=== PATIENT | male | born 1960 | race American Indian/Alaskan Native ===

== ENCOUNTER 2019-07-31 11:34 | Inpatient (IN) | payer MEDICARE ==
--- NOTE | 2019-07-31 12:45 | XRay Report ---
CHEST 1 VIEW INDICATION / CLINICAL INFORMATION: Chest Pain. COMPARISON: None available. FINDINGS: SUPPORT DEVICES: Right PermCath projects over the superior vena cava in expected position. HEART / MEDIASTINUM: No significant abnormality. LUNGS / PLEURA: No significant pulmonary or pleural abnormality. No pneumothorax. ADDITIONAL FINDINGS: No significant additional findings. IMPRESSION: 1. No acute findings. Signer Name: Lissy Saxena MD Signed: 07/31/2019 12:40 PM Workstation Name: [id number]
[2019-07-31 13:06] LABS: Basophils % (Auto) 0.4 % (0.0-1.8); Eosinophils # (Auto) 0.2 K/mm3 (0.0-0.4); Eosinophils % (Auto) 3.2 % (0.0-4.3); Hematocrit 29.6 % (35.5-45.6); Hemoglobin 9.8 gm/dl (11.8-15.2); Lymphocytes # (Auto) 0.7 K/mm3 (1.2-5.4); Lymphocytes % (Auto) 12.1 % (13.4-35.0); Mean Corpuscular HGB Conc 33 % (32-34); Mean Corpuscular Volume 91 fl (84-94); Monocytes # (Auto) 0.4 K/mm3 (0.0-0.8); Monocytes % (Auto) 7.8 % (0.0-7.3); Platelet Count 153 K/mm3 (140-440); Red Blood Count 3.27 M/mm3 (3.65-5.03); Red Cell Distribution Width 16.5 % (13.2-15.2)
[2019-07-31 13:20] LABS: Albumin 4.1 g/dL (3.9-5); Calcium 9.8 mg/dL (8.4-10.2)
[2019-07-31 13:32] LABS: Chol/HDL Ratio 2.14 %
--- NOTE | 2019-07-31 14:27 | History and Physical Report ---
History of Present Illness Chief complaint: I just blacked out History of present illness: 58 YO Male with HTN, CVA, Nicotine Dependence, ESRD on HD(M,W,F), presents to ED for evaluation. Pt states that he was in his [facility] state of health today. Pt reports experienced of acute onset of abdominal cramping, which was followed by weakness of his left side, and slurred speech which was followed by syncope. Pt awoke, and notified EMS. Upon arrival the patient was found to be in distress and transported to [facility]. Pt seen and evaluated in ED and found to have symptoms consistent with CVA as well as ESRD. PT admitted to telemetry and initiated on CVA protocol. Neurology consulted in ED. Nephrology consulted in ED. Pt denies fever, chills, CP, Palpitations, NVD, Trauma, BRBPR, Productive cough, unintentional weight loss, night sweats, skin rash, or bone pain. Past History Past Medical History: ESRD, hypertension, stroke Past Surgical History: Other (dialysis catheter) Social history: , smoking Family history: hypertension Medications and Allergies Allergies Allergy/AdvReac Type Severity Reaction Status Date / Time No Known Allergies Allergy Unverified 07/31/19 11:50 Home Medications Medication Instructions Recorded Confirmed Last Taken Type Baclofen [Lioresal] 10 mg PO TID 07/31/19 07/31/19 Unknown History Carvedilol [Coreg] 6.25 mg PO BID 07/31/19 07/31/19 Unknown History Rosuvastatin Calcium 40 mg PO QDAY 07/31/19 07/31/19 Unknown History Sevelamer Carbonate [Renvela] 800 mg PO TIDWM 07/31/19 07/31/19 Unknown History Spironolactone [Aldactone] 25 mg PO QDAY 07/31/19 07/31/19 Unknown History Ticagrelor [Brilinta] 45 mg PO BID 07/31/19 07/31/19 Unknown History Vit B Comp C/Folic Acid/Vit D3 1 each PO QDAY 07/31/19 07/31/19 Unknown History [Dialyvite 800 Plus D Wafer] amLODIPine [Norvasc] 10 mg PO DAILY 07/31/19 07/31/19 Unknown History Review of Systems Constitutional: no weight loss, no fever, no chills Ears, nose, mouth and throat: no ear pain, no ear discharge, no tinnitis, no decreased hearing, no nose pain, no nasal congestion, no nasal discharge Cardiovascular: no chest pain Respiratory: no cough, no cough with sputum, no hemoptysis, no dyspnea on exertion Gastrointestinal: other (cramping), no abdominal pain, no nausea, no vomiting, no constipation, no change in bowel habits Genitourinary Male: no dysuria, no hematuria, no flank pain, no discharge, no urinary frequency, no nocturia, no erectile dysfunction Rectal: no pain, no incontinence, no bleeding Musculoskeletal: no neck stiffness, no neck pain, no low back pain, no shooting leg pain Integumentary: no rash, no redness, no wounds, no jaundice Neurological: weakness, syncope, lack of coordination, change in speech, no head injury, no seizures, no tremors, no migraines, no convulsions, no confusion, no memory loss Psychiatric: no anxiety, no memory loss, no sleep disturbances, no insomnia, no hypersomnia, no change in libido, no suicidal ideation, no disorientation Endocrine: no cold intolerance, no heat intolerance, no polyphagia, no polydipsia, no polyuria, no nocturia, no excessive sweating, no flushing Hematologic/Lymphatic: no easy bruising, no easy bleeding, no lymphadenopathy, no lymphedema Allergic/Immunologic: no urticaria, no allergic rhinitis, no wheezing, no persistent infections, no anaphylaxis, no angioedema Exam - Constitutional Vitals: Temp Pulse Resp BP Pulse Ox 98.4 F 92 H 22 121/84 97 07/31/19 13:03 07/31/19 13:03 07/31/19 13:03 07/31/19 13:03 07/31/19 13:03 General appearance: Present: mild distress - EENT Eyes: Present: PERRL ENT: hearing intact, clear oral mucosa - Neck Neck: Present: supple, normal ROM - Respiratory Respiratory effort: normal Respiratory: bilateral: CTA - Cardiovascular Heart Sounds: Present: S1 & S2. Absent: rub, click - Extremities Extremities: pulses symmetrical, No edema Peripheral Pulses: within normal limits - Abdominal General gastrointestinal: Present: soft, non-tender, non-distended, normal bowel sounds Male genitourinary: Present: normal - Integumentary Integumentary: Present: clear, warm, dry - Musculoskeletal Musculoskeletal: left sided weakness - Psychiatric Psychiatric: appropriate mood/affect, intact judgment & insight - Neurologic Neurologic: CNII-XII intact, moves all extremities, no gait normal Results - Labs CBC & Chem 7: 07/31/19 12:36 07/31/19 12:36 Labs: Abnormal lab results 07/31/19 07/31/19 Range/Units 12:36 12:36 RBC 3.27 L (3.65-5.03) M/mm3 Hgb 9.8 L (11.8-15.2) gm/dl Hct 29.6 L (35.5-45.6) % RDW 16.5 H (13.2-15.2) % Lymph % (Auto) 12.1 L (13.4-35.0) % [place] % (Auto) 7.8 H (0.0-7.3) % Lymph # 0.7 L (1.2-5.4) K/mm3 Seg Neutrophils % 76.5 H (40.0-70.0) % Potassium 3.3 L (3.6-5.0) mmol/L Chloride 95.1 L (98-107) mmol/L Creatinine 3.1 H (0.8-1.5) mg/dL Glucose 116 H (75-100) mg/dL Troponin T 0.050 H (0.00-0.029) ng/mL LDL Cholesterol Direct 42 L (50-130) mg/dL Assessment and Plan - Patient Problems (1) CVA (cerebral vascular accident) Current Visit: Yes Status: Acute Qualifiers: Laterality of affected vessel: unspecified Plan to address problem: Stroke Protocol: CT head, neuro checks, antiplatelet therapy, PT/OT/Speech Therapy, Antiplatelet therapy, lipid panel, neurology consulted, Further testing as per neurology team. (2) ESRD (end stage renal disease) Current Visit: Yes Status: Acute Plan to address problem: Nephrology consulted in ED, dialysis as per renal team. (3) HTN (hypertension) Current Visit: Yes Status: Acute Qualifiers: Hypertension type: essential hypertension Qualified Code(s): I10 - Essential (primary) hypertension Plan to address problem: monitor bp q shift, continue medical management. (4) Nicotine dependence Current Visit: Yes Status: Acute Qualifiers: Nicotine product type: cigarettes Substance use status: in withdrawal Q ualified Code(s): F17.213 - Nicotine dependence, cigarettes, with withdrawal Plan to address problem: Smoking cessation counseling, +15 minutes, supportive care. (5) DVT prophylaxis Current Visit: Yes Status: Acute Plan to address problem: SCD to BLE while in bed.
--- NOTE | 2019-07-31 14:30 | Emergency Department Report ---
ED General Adult HPI - General Chief complaint: Abdominal Pain Stated complaint: ABD PAIN Time Seen by Provider: 07/31/19 12:13 Source: patient, EMS Mode of arrival: Stretcher Limitations: No Limitations - History of Present Illness Initial comments: Mr. Santoro is a 58 yo male with hx of HTN, CVA, ESRD on HD who presents with syncope x 2 episodes. While awaiting podiatry appointment, he caught "a cramp" in his left side at the left upper abdomen. Daughter then witnessed two brief episodes whereas Mr. Santoro lost consciousness. The second episode lasted several seconds. Patient denies pain currently. He does not recall the episodes. He previously lived in [facility]. His PCP's office is in the area. 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 His previous primary hospital primary was [facility]. He now received dialysis at [address] [place] [id number] in [place]. Hemodialysis Schedule Sunday. Last dialysis session occurred on yesterday. Mr. Santoro recently moved to [place] to live with his daughter who will now be his small animal caretaker. -: Sudden, This afternoon Severity scale (0 -10): 0 Consistency: now resolved Improves with: none Worsens with: none Associated Symptoms: other (left upper quadrant abdominal pain) - Related Data Allergies Allergy/AdvReac Type Severity Reaction Status Date / Time No Known Allergies Allergy Unverified 07/31/19 11:50 ED Review of Systems ROS: Stated complaint: ABD PAIN Other details as noted in HPI Comment: All other systems reviewed and negative Constitutional: denies: fever, malaise Cardiovascular: denies: chest pain Gastrointestinal: abdominal pain ED Past Medical Hx - Past Medical History Previous Medical History?: Yes Hx Hypertension: Yes - Social History Smoking Status: Current Every Day Smoker ED Physical Exam - General Limitations: No Limitations General appearance: alert, in no apparent distress, other (mild dysarthria which is baseline for patient with history of previous stroke) - Head Head exam: Present: atraumatic, normocephalic - Eye Eye exam: Present: normal appearance - ENT ENT exam: Present: mucous membranes moist - Neck Neck exam: Present: normal inspection, full ROM - Respiratory Respiratory exam: Present: normal lung sounds bilaterally. Absent: respiratory distress, wheezes, rales, stridor - Cardiovascular Cardiovascular Exam: Present: regular rate, normal rhythm, normal heart sounds. Absent: systolic murmur, diastolic murmur, rubs, gallop - GI/Abdominal GI/Abdominal exam: Present: soft, normal bowel sounds. Absent: distended, tenderness, guarding, rebound - Rectal Rectal exam: Present: deferred - Extremities Exam Extremities exam: Present: normal inspection - Back Exam Back exam: Present: normal inspection - Neurological Exam Neurological exam: Present: alert, oriented X3 - Psychiatric Psychiatric exam: Present: normal affect, normal mood - Skin Skin exam: Present: warm, dry, intact, normal color. Absent: rash ED Course Vital Signs 07/31/19 07/31/19 07/31/19 11:48 13:00 13:03 Temperature 98.4 F Pulse Rate 92 H Respiratory 22 Rate Blood Pressure 129/82 121/84 [Left] O2 Sat by Pulse 96 97 Oximetry ED Medical Decision Making - Lab Data Result diagrams: 07/31/19 12:36 07/31/19 12:36 Laboratory Results - last 24 hr 07/31/19 07/31/19 12:36 12:36 WBC 5.8 RBC 3.27 L Hgb 9.8 L Hct 29.6 L MCV 91 MCH 30 MCHC 33 RDW 16.5 H Plt Count 153 Lymph % (Auto) 12.1 L [place] % (Auto) 7.8 H Eos % (Auto) 3.2 Baso % (Auto) 0.4 Lymph # 0.7 L [place] # 0.4 Eos # 0.2 Baso # 0.0 Seg Neutrophils % 76.5 H Seg Neutrophils # 4.4 Sodium 137 Potassium 3.3 L Chloride 95.1 L Carbon Dioxide 28 Anion Gap 17 BUN 20 Creatinine 3.1 H Estimated GFR 25 BUN/Creatinine Ratio 6 Glucose 116 H Calcium 9.8 Total Bilirubin 0.90 AST 18 ALT 16 Alkaline Phosphatase 118 Troponin T 0.050 H Total Protein 8.0 Albumin 4.1 Albumin/Globulin Ratio 1.1 Triglycerides 105 Cholesterol 90 LDL Cholesterol Direct 42 L HDL Cholesterol 42 Cholesterol/HDL Ratio 2.14 - EKG Data 07/31/19 14:30 EKG NSR rate 90 bpm NSR nl axis nl intervals no ST-T wave elevation 07/31/19 14:31 EKG obtained 1241 Normal sinus rhythm rate 90 beats a minute normal axis normal intervals no ST elevation - Radiology Data Radiology results: report reviewed no acute findings: pcxr - Medical Decision Making Mr. 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 He presents with sudden onset of left lower quadrant pain and subsequent syncope. Differential diagnosis includes arrhythmia, ACS. Admitted to the service of further treatment. Labs noted for mild anemia. Do not suspect acute hemorrhage at this time. Labs also noted for chronic kidney disease and hypokalemia. Critical care attestation.: If time is entered above; I have spent that time in minutes in the direct care of this critically ill patient, excluding procedure time. ED Disposition Clinical Impression: Syncope Disposition: DC-01 TO HOME OR SELFCARE Is pt being admited?: Yes Does the pt Need Aspirin: No Condition: Stable Instructions: Syncope (ED) Referrals: JUDIE ABREU MD [Primary Care Provider] - 3-5 Days
[2019-07-31] MEDS ORDERED: REGLAN PO PRN (18:14)
[2019-07-31] MEDS ORDERED: SODIUM CHLORIDE FLUSH SYRINGE 10 ML IV PRN (18:14)
[2019-07-31] MEDS ORDERED: TYLENOL PO PRN (18:14)
[2019-07-31] MEDS ORDERED: MILK OF MAGNESIA PO PRN (18:14)
[2019-07-31] MEDS ORDERED: ZOFRAN IV PRN (18:14)
[2019-07-31] MEDS ORDERED: PHENERGAN PR PRN (18:14)
[2019-07-31] MEDS ORDERED: DULCOLAX PR PRN (18:14)
[2019-07-31] MEDS: COREG PO SCH (21:52)
[2019-07-31] MEDS: BRILINTA PO SCH (21:53)
[2019-07-31] MEDS: LIORESAL PO SCH (21:53)
[2019-08-01] MEDS: HABITROL TD SCH ×2 (10:00→10:13)
[2019-08-01] MEDS ORDERED: ASPIRIN PO SCH (10:00)
[2019-08-01] MEDS ORDERED: NON-FORMULARY (Vit B Comp C/Folic Acid/Vit D3 [Dialyvite 800 Plus D Wafer] 1 EACH) PO SCH (10:00)
[2019-08-01] MEDS: BRILINTA PO SCH ×2 (10:11→21:37)
[2019-08-01] MEDS: HALFPRIN EC PO SCH (10:11)
[2019-08-01] MEDS: LIORESAL PO SCH ×3 (10:13→21:38)
[2019-08-01] MEDS: RENVELA PO SCH ×3 (10:14→18:23)
[2019-08-01] MEDS: COREG PO SCH ×2 (10:21→21:38)
[2019-08-01] MEDS: NORVASC PO SCH (10:21)
[2019-08-01] MEDS: ALDACTONE PO SCH (10:22)
--- NOTE | 2019-08-01 10:38 | Cat Scan Report ---
CT HEAD WITHOUT CONTRAST HISTORY: syncope. TECHNIQUE: Axial imaging performed from the skull apex through the skull base without the use of con trast. All CT scans at this location are performed using CT dose reduction for ALARA by means of aut omated exposure control. COMPARISON: None FINDINGS: Parenchyma: No acute intracranial hemorrhage or parenchymal abnormality.. Mild hypoattenuation thro ughout the white matter is noted and consistent with chronic microvascular ischemic disease. Chronic focal cortical infarct in the right frontal lobe measures 1.9 cm on image 50. Ventricles: There is mild diffuse brain atrophy with commensurate ventricular enlargement which is l ikely age appropriate. Soft tissues: Soft tissues including the orbits appear normal. Bones: No acute osseous abnormality. Sinuses: Sinuses and mastoid air cells are clear. IMPRESSION: Senescent changes. Chronic focal cortical infarct in the right frontal lobe. No acute int racranial process is identified. Signer Name: Pérez Contreras Jr, MD Signed: 08/01/2019 10:34 AM Workstation Name: [id number]
--- NOTE | 2019-08-01 10:45 | Vascular Lab Report ---
BILATERAL CAROTID DOPPLER ULTRASOUND INDICATION : stroke TECHNIQUE: Grayscale and color Doppler imaging performed through the neck. COMPARISON: None FINDINGS: Right: There is mild intimal hyperplasia throughout the CCA and mild to moderate irregular calcifie d plaques in the proximal right ICA. Peak systolic velocity in the CCA is 73 cm/s with end-diastolic velocity of 29 cm/s. Peak systolic velocity in the proximal ICA is 57 cm/s with end-diastolic velocit y of 34 cm/s. ICA to CCA ratio is less than 2. There is antegrade flow in the ECA and the vertebral artery. Left: There is mild intimal hyperplasia throughout the CCA. The ICA and bulb are poorly visualized du e to depth but appear grossly unremarkable.. Peak systolic velocity in the CCA is 67 cm/s with end-di astolic velocity of 21 cm/s. Peak systolic velocity in the proximal ICA is 67 cm/s with end-diastolic velocity of 23 cm/s. ICA to CCA ratio is less than 2. There is antegrade flow in the ECA and the ve rtebral artery. IMPRESSION: No hemodynamically significant stenosis by NASCET criteria. There is less than 50% lumina l narrowing in both carotid systems. Mild to moderate atherosclerotic disease as described above. Signer Name: Pérez Contreras Jr, MD Signed: 08/01/2019 10:40 AM Workstation Name: [id number]
[2019-08-01] MEDS ORDERED: NACL 0.9% 100 ML IV PRN ×2 (12:33→17:15)
--- NOTE | 2019-08-01 13:07 | Consultation ---
Past History Past Medical History: ESRD, hypertension, stroke Past Surgical History: Other (dialysis catheter) Social history: , smoking Family history: hypertension Medications and Allergies Allergies Allergy/AdvReac Type Severity Reaction Status Date / Time No Known Allergies Allergy Unverified 07/31/19 11:50 Home Medications Medication Instructions Recorded Confirmed Last Taken Type Baclofen [Lioresal] 10 mg PO TID 07/31/19 07/31/19 Unknown History Carvedilol [Coreg] 6.25 mg PO BID 07/31/19 07/31/19 Unknown History Rosuvastatin Calcium 40 mg PO QDAY 07/31/19 07/31/19 Unknown History Sevelamer Carbonate [Renvela] 800 mg PO TIDWM 07/31/19 07/31/19 Unknown History Spironolactone [Aldactone] 25 mg PO QDAY 07/31/19 07/31/19 Unknown History Ticagrelor [Brilinta] 45 mg PO BID 07/31/19 07/31/19 Unknown History Vit B Comp C/Folic Acid/Vit D3 1 each PO QDAY 07/31/19 07/31/19 Unknown History [Dialyvite 800 Plus D Wafer] amLODIPine [Norvasc] 10 mg PO DAILY 07/31/19 07/31/19 Unknown History Active Meds: Active Medications Acetaminophen (Tylenol) 650 mg PO Q4H PRN PRN Reason: Pain, Mild (1-3) Amlodipine Besylate (Norvasc) 10 mg PO DAILY [facility] Last Admin: 08/01/19 10:21 Dose: 10 mg Documented by: Aspirin (Halfprin Ec) 81 mg PO QDAY [facility] Last Admin: 08/01/19 10:11 Dose: 81 mg Documented by: Atorvastatin Calcium (Lipitor) 40 mg PO QHS [facility] Last Admin: 07/31/19 21:53 Dose: 40 mg Documented by: Baclofen (Lioresal) 10 mg PO TID [facility] Last Admin: 08/01/19 10:13 Dose: 10 mg Documented by: Bisacodyl (Dulcolax) 10 mg HI QDAY PRN PRN Reason: Constipation Carvedilol (Coreg) 6.25 mg PO BID [facility] Last Admin: 08/01/19 10:21 Dose: 6.25 mg Documented by: Sodium Chloride (Nacl 0.9%) 100 mls @ 999 mls/hr IV STEF PRN PRN Reason: Hypotension Magnesium Hydroxide (Milk Of Magnesia) 30 ml PO Q4H PRN PRN Reason: Constipation Metoclopramide HCl (Reglan) 10 mg PO Q6H PRN PRN Reason: Nausea And Vomiting Multivit/Ca Carb/B Cmplx/FA/Prenat (Renal Caps) 1 cap PO QDAY [facility] Nicotine (Habitrol) 14 mg TD QDAY [facility] Last Admin: 08/01/19 10:13 Dose: 14 mg Documented by: Ondansetron HCl (Zofran) 4 mg IV Q8H PRN PRN Reason: Nausea And Vomiting Promethazine HCl (Phenergan) 25 mg HI Q6H PRN PRN Reason: Nausea And Vomiting Sevelamer Carbonate (Renvela) 800 mg PO TIDWM [facility] Last Admin: 08/01/19 10:14 Dose: 800 mg Documented by: Sodium Chloride (Sodium Chloride Flush Syringe 10 Ml) 10 ml IV PRN PRN PRN Reason: LINE FLUSH Spironolactone (Aldactone) 25 mg PO QDAY [facility] Last Admin: 08/01/19 10:22 Dose: 25 mg Documented by: Ticagrelor (Brilinta) 45 mg PO BID [facility] Last Admin: 08/01/19 10:11 Dose: 45 mg Documented by: Physical Examination - Vital Signs Vital Signs: Vital Signs BP 129/82 07/31/19 11:48 Results - Laboratory Findings CBC and BMP: 07/31/19 12:36 07/31/19 12:36 Abnormal Lab Findings: Abnormal Labs 07/31/19 07/31/19 12:36 12:36 RBC 3.27 L Hgb 9.8 L Hct 29.6 L RDW 16.5 H Lymph % (Auto) 12.1 L [place] % (Auto) 7.8 H Lymph # 0.7 L Seg Neutrophils % 76.5 H Potassium 3.3 L Chloride 95.1 L Creatinine 3.1 H Glucose 116 H Troponin T 0.050 H LDL Cholesterol Direct 42 L Assessment and Plan 58 YR OLD WITH HIST OF HT,ESRD ON DIALYSIS, OLD STROKE WITH RESIDUAL LEFT SIDED WEAKNESS WHO WAS NOTED TO HAVE TWO EPISODES OF LOSS OF CONSCIOUSNESS WHILE ATTENDING PODIATRY CLINIC. PATIENT WAS ATTENDED BY HIS DAUGHTER WHO BROUGHT HIM TO THE HOSPITAL.,PATIENT HAD DIALYSIS DONE ONE DAY PRIOR TO THE EVENT.WORK UPON ADMISSION CT SCAN OF THE BRAIN SHOWED OLD RIGHT FRONTAL INFARCT.LAB DID NOT SHOW ANY ELECTROLYTES ABNORMALITIES,ALTHOUGH CALCIUM AND MAGNESIUM WAS NOT DONE. PHYSICAL EXAMINATION- GENERAL- IN NO ACUTE DISTRESS, ALERT AND AWAKE AND ANSWERS QUESTIONS APPROPRIATELY. HEART- NORMAL RATE AND RYTHM. CAROTID-BOTH PALPABLE,NO BRUIT. CRANIAL NERVES- ALL CRANIAL NERVES ARE WITH IN NORMAL LIMIT,NO FACIAL ASYMMETR Y,PUPILS REACT TO LIGHT,EOMI, MOTOR- LEFT UPPER AND LOWER EXTREMITIES ARE WEAK, WITH INCREASED MUSCLE TONE ON BOTH LEFT UPPER AND LOWER EXTREMITIES. REFLEXES-ARE BRISK ON THE ON THE LEFT UPPER AND LOWER EXTREMITIES WITH UPGOING TOE ON THE LEFT SIDE. SENSORY- GROSSLY WITH IN NORMAL LIMIT. IMPRESSION.1. TWO EPISODES OF LOSS OF CONSCIOUSNESS WITH OUT ACCOMAPNYING ELECTROLYTE ABNORMALITIES AND OR HYPOGLYCEMIA WITH RISK FACTOR FOR SEIZURE SUCH INTRACRANI LESION FROM PREVIOUS STROKE SUGGEST SEIZURE, RECOMMEND. 1. PLEASE START HIM ON KEPPRA 500 MG PO BID. 2, PLEASE CHECK SERUM CALCIUM AND MAGNESIUM. 3, EEG OUT PATIENT AFTER DISCHARGE.
[2019-08-01 14:22] LABS: Hepatitis C Virus Antibody Non-Reactive (NonReactive)
[2019-08-01 15:20] LABS: Hepatitis B Surface Antigen Non-Reactive (Negative)
[2019-08-01] MEDS ORDERED: NACL 0.9 (PRIMING MACHINE ONLY DIALYSIS) MC ONE (16:58)
[2019-08-01] MEDS: KEPPRA PO SCH ×2 (18:23→21:38)
--- NOTE | 2019-08-01 20:58 | Consultation ---
History of Present Illness - Reason for Consult Consult date: 08/01/19 end stage renal disease - History of Present Illness This is a 58 year old man with ESRD who presents with syncope. He usually dialyzes at [place] and has been doing well with HD sessions, with no issues with his access and no cramping, dizziness, lightheadedness, chest pain. No further syncope. He is seen on HD during time of consult. He is without chest pain, dyspnea, nausea, vomiting, or headaches. Past History Past Medical History: ESRD, hypertension, stroke Past Surgical History: Other (dialysis catheter) Social history: , smoking Family history: hypertension Medications and Allergies Allergies Allergy/AdvReac Type Severity Reaction Status Date / Time No Known Allergies Allergy Unverified 07/31/19 11:50 Home Medications Medication Instructions Recorded Confirmed Last Taken Type Baclofen [Lioresal] 10 mg PO TID 07/31/19 07/31/19 Unknown History Carvedilol [Coreg] 6.25 mg PO BID 07/31/19 07/31/19 Unknown History Rosuvastatin Calcium 40 mg PO QDAY 07/31/19 07/31/19 Unknown History Sevelamer Carbonate [Renvela] 800 mg PO TIDWM 07/31/19 07/31/19 Unknown History Spironolactone [Aldactone] 25 mg PO QDAY 07/31/19 07/31/19 Unknown History Ticagrelor [Brilinta] 45 mg PO BID 07/31/19 07/31/19 Unknown History Vit B Comp C/Folic Acid/Vit D3 1 each PO QDAY 07/31/19 07/31/19 Unknown History [Dialyvite 800 Plus D Wafer] amLODIPine [Norvasc] 10 mg PO DAILY 07/31/19 07/31/19 Unknown History Active Meds: Active Medications Acetaminophen (Tylenol) 650 mg PO Q4H PRN PRN Reason: Pain, Mild (1-3) Amlodipine Besylate (Norvasc) 10 mg PO DAILY [facility] Last Admin: 08/01/19 10:21 Dose: 10 mg Documented by: Aspirin (Halfprin Ec) 81 mg PO QDAY [facility] Last Admin: 08/01/19 10:11 Dose: 81 mg Documented by: Atorvastatin Calcium (Lipitor) 40 mg PO QHS [facility] Last Admin: 07/31/19 21:53 Dose: 40 mg Documented by: Baclofen (Lioresal) 10 mg PO TID [facility] Last Admin: 08/01/19 18:20 Dose: Not Given Documented by: Bisacodyl (Dulcolax) 10 mg [place] QDAY PRN PRN Reason: Constipation Carvedilol (Coreg) 6.25 mg PO BID [facility] Last Admin: 08/01/19 10:21 Dose: 6.25 mg Documented by: Sodium Chloride (Nacl 0.9%) 100 mls @ 999 mls/hr IV STEF PRN PRN Reason: Hypotension Sodium Chloride (Nacl 0.9%) 100 mls @ 999 mls/hr IV STEF PRN PRN Reason: Hypotension Levetiracetam (Keppra) 500 mg PO BID [facility] Last Admin: 08/01/19 18:23 Dose: 500 mg Documented by: Magnesium Hydroxide (Milk Of Magnesia) 30 ml PO Q4H PRN PRN Reason: Constipation Metoclopramide HCl (Reglan) 10 mg PO Q6H PRN PRN Reason: Nausea And Vomiting Multivit/Ca Carb/B Cmplx/FA/Prenat (Renal Caps) 1 cap PO QDAY [facility] Nicotine (Habitrol) 14 mg TD QDAY [facility] Last Admin: 08/01/19 10:00 Dose: Not Given Documented by: Ondansetron HCl (Zofran) 4 mg IV Q8H PRN PRN Reason: Nausea And Vomiting Promethazine HCl (Phenergan) 25 mg [place] Q6H PRN PRN Reason: Nausea And Vomiting Sevelamer Carbonate (Renvela) 800 mg PO TIDWM [facility] Last Admin: 08/01/19 18:23 Dose: 800 mg Documented by: Sodium Chloride (Sodium Chloride Flush Syringe 10 Ml) 10 ml IV PRN PRN PRN Reason: LINE FLUSH Spironolactone (Aldactone) 25 mg PO QDAY [facility] Last Admin: 08/01/19 10:22 Dose: 25 mg Documented by: Ticagrelor (Brilinta) 45 mg PO BID [facility] Last Admin: 08/01/19 10:11 Dose: 45 mg Documented by: Review of Systems All systems: negative Exam - Vital Signs Vital signs: Vital Signs BP 129/82 07/31/19 11:48 - General Appearance General appearance: well-developed, well-nourished, appears stated age EENT: PERRL, mucous membranes moist Neck: Present: neck supple, trachea midline. Absent: JVD/HJR, Masses Respiratory: Clear to Ascultation Heart: regular, normal heart rate, S1S2, no murmurs Gastrointestinal: Present: normal. Absent: tenderness, distended, masses, guarding Integumentary: no rash, warm and dry Neurologic: no focal deficit, alert and oriented x3, gait normal, strength 5/5 Musculoskeletal: Absent: deformities, joint swelling Psychiatric: mood/affect appropriate (dialysis access intact), cooperative Results - Lab Results 07/31/19 12:36 07/31/19 12:36 Most recent lab results Calcium 9.8 mg/dL (8.4-10.2) 07/31/19 12:36 Assessment and Plan Assessment/Plan: This is a 58 year old man with ESRD who presents with syncope. Stable on HD # ESRD: continue HD MWF, UF as tolerated - avoid nephrotoxins - renally dose medications - discussed renal prognosis and answered all concerns regarding dialysis care # Anemia: hemoglobin low at 9.8, will provide ESAs as indicated # HTN: BP at goal
[2019-08-02 06:54] LABS: Calcium 9.5 mg/dL (8.4-10.2)
[2019-08-02] MEDS: LIORESAL PO SCH ×2 (08:42→13:21)
[2019-08-02] MEDS: RENVELA PO SCH ×2 (08:43→13:22)
[2019-08-02] MEDS: BRILINTA PO SCH (09:00)
[2019-08-02] MEDS: KEPPRA PO SCH (09:01)
[2019-08-02] MEDS: HALFPRIN EC PO SCH (09:02)
[2019-08-02] MEDS: COREG PO SCH (09:04)
[2019-08-02] MEDS: ALDACTONE PO SCH (09:06)
[2019-08-02] MEDS ORDERED: Renal Caps PO SCH (10:00)
[2019-08-02] MEDS: NORVASC PO SCH (11:06)
[2019-08-02] MEDS: HABITROL TD SCH (11:06)
--- NOTE | 2019-08-02 11:56 | Progress Note ---
Assessment and Plan /Syncope versus acute seizure Negative CT head, Continue neuro checks, antiplatelet therapy, PT/OT/Speech Therapy, Ordered lipid panel, neurology consulted, further management per neurology team. /ESRD (end stage renal disease) Nephrology consulted in ED, dialysis as per renal team. /HTN (hypertension) monitor bp q shift, continue medical management. / Nicotine dependence Smoking cessation counseling, +15 minutes, supportive care. / DVT prophylaxis SCD to BLE while in bed. Subjective Date of service: 08/01/19 Interval history: Patient seen and examined. Medical records and medication list reviewed. No acute event overnight noted by the RN. Patient denies any chest pain or difficulty breathing. Patient is tolerating diet. Discussed plan of care at bedside with patient. Objective - Constitutional Vitals: Vital Signs - 12hr 08/02/19 08/02/19 08/02/19 04:16 08:00 09:04 Temperature 98.0 F 98.3 F Pulse Rate 84 84 84 Respiratory 18 18 Rate Blood Pressure 97/70 103/75 Blood Pressure 103/75 [Left] O2 Sat by Pulse 99 100 Oximetry 08/02/19 08/02/19 09:06 09:24 Temperature Pulse Rate 84 82 Respiratory Rate Blood Pressure 103/75 Blood Pressure [Left] O2 Sat by Pulse Oximetry General appearance: Present: no acute distress, well-nourished - EENT Eyes: PERRL, EOM intact ENT: hearing intact, clear oral mucosa Ears: bilateral: normal - Neck Neck: supple, normal ROM - Respiratory Respiratory effort: normal Respiratory: bilateral: CTA - Cardiovascular Rhythm: regular Heart Sounds: Present: S1 & S2. Absent: gallop, rub Extremities: pulses intact, No edema, normal color, abnormal (left sided paralysis) - Gastrointestinal General gastrointestinal: Present: soft, non-tender, non-distended, normal bowel sounds - Integumentary Integumentary: clear, warm, dry - Musculoskeletal Musculoskeletal: left sided weakness - Neurologic Neurologic: CNII-XII intact, focal deficits (LLE weakness) - Psychiatric Psychiatric: memory intact, appropriate mood/affect, intact judgment & insight - Labs CBC & Chem 7: 07/31/19 12:36 08/02/19 05:41 Labs: Abnormal lab results 08/02/19 Range/Units 05:41 Potassium 3.3 L (3.6-5.0) mmol/L Chloride 97.2 L (98-107) mmol/L BUN 21 H (9-20) mg/dL Creatinine 3.4 H (0.8-1.5) mg/dL
[2019-08-02 12:00] VITALS: BP 109/68
--- NOTE | 2019-08-02 13:36 | Discharge Summary ---
Providers - Providers Date of Admission: 07/31/19 18:14 Date of discharge: 08/02/19 Attending physician: PATTIE BURTON 07/31/19 Consult to Physician [CONS] Routine Comment: Consulting Provider: SYLVIA WHIPPLE Physician Instructions: Reason For Exam: cva 07/31/19 18:14 Occupational Therapy Evaluate and Treat [CONS] Routine Comment: Reason For Exam: Neuro deficits Physical Therapy Evaluation and Treat [CONS] Routine Comment: Reason For Exam: Neuro deficits 07/31/19 18:15 Speech Therapy Evaluation and Treat [CONS] Routine Reason For Exam: swallow eval 08/01/19 12:07 Consult to Physician [CONS] Routine Comment: Consulting Provider: TESSIE HOPKINS Physician Instructions: Reason For Exam: esrd Primary care physician: JUDIE ABREU Hospitalization Condition: Stable Pertinent studies: head CT carotis doppler CXR 2d echo Hospital course: Discharge diagnosis: /Acute seizure Negative CT head, placed on neuro checks, antiplatelet therapy, PT/OT/Speech Therapy, neurology consulted and recommended to initiate keppra 500mg BID /ESRD (end stage renal disease) Nephrology consulted in ED, dialysis as per renal team. /HTN (hypertension) monitor bp q shift, continue medical management. / Nicotine dependence Smoking cessation counseling, +15 minutes, supportive care. /h/o CVA with left LE paralysis - cont asp/statin, pt is wheel chair bound /CHFpEF 45-50%, stable / DVT prophylaxis SCD to BLE while in bed. Disposition: DC/[place]-06 HOME UND[facility] Time spent for discharge: 34 minutes Core Measure Documentation - Palliative Care Palliative Care/ Comfort Measures: Not Applicable - Core Measures Any of the following diagnoses?: history only Exam - Constitutional Vitals: Temp Pulse Resp BP Pulse Ox 98.6 F 83 18 109/68 100 08/02/19 11:16 08/02/19 11:16 08/02/19 11:16 08/02/19 11:16 08/02/19 11:16 Plan Activity: up only with assistance, fall precautions Weight Bearing Status: Non-Weight Bearing Diet: renal Special Instructions: restrict fluid intake to (1 L per day) Follow up with: JUDIE ABREU MD [Primary Care Provider] - 3-5 Days Prescriptions: Aspirin EC [Halfprin EC] 81 mg PO QDAY #30 tablet levETIRAcetam [Keppra TAB] 500 mg PO BID #60 tablet
== END 2019-08-02 14:44 | disposition home or self-care (01) | DRG 100 ==
LOC: ED 11:34 → 4A 18:14
PROVIDERS: ADMIT Internal Medicine; ATTEND Internal Medicine
PROC: 5A1D70Z Performance of Urinary Filtration, Intermittent, Less than 6 Hours Per Day (ICD-10-PCS; principal; 2019-08-01)
DX: R56.9 Unspecified convulsions (principal); N18.6 End stage renal disease; F17.213 Nicotine dependence, cigarettes, with withdrawal; I69.354 Hemiplegia and hemiparesis following cerebral infarction affecting left non-dominant side; I13.2 Hypertensive heart and chronic kidney disease with heart failure and with stage 5 chronic kidney disease, or end stage renal disease; I50.30 Unspecified diastolic (congestive) heart failure; Z99.2 Dependence on renal dialysis; Z82.49 Family history of ischemic heart disease and other diseases of the circulatory system; D64.9 Anemia, unspecified; Z71.6 Tobacco abuse counseling
CPT/HCPCS: 36415; 70450; 71045; 80048; 80053; 80061; 80074; 83735; 84484; 85025; 87116; 93005; 93010; 93306; 93880; 99406; G0378; A9270-GY; J3246; J7030

== ENCOUNTER 2020-10-04 15:21 | Inpatient (IN) | payer MEDICARE, OTHER ==
--- NOTE | 2020-10-04 15:37 | Emergency Department Report ---
ED Neuro Deficit HPI - General Chief Complaint: Neuro Symptoms/Deficit Stated Complaint: POSS CVA Time Seen by Provider: 10/04/20 15:37 Source: patient, EMS, old records reviewed Mode of arrival: Stretcher Limitations: Physical Limitation - History of Present Illness Initial Comments: 60 yo male with a past medical history of CVA with residual left-sided deficits, hypertension, and chronic renal sufficiency presents to the hospital with possible stroke. Patient apparently was found altered on the floor by daughter incontinent of urine approximately 8 AM this morning. Last known well time about 10 PM. Patient denies previous history of seizures but apparently has been on Keppra in the past. Patient states he fell getting out of bed and could not get off the floor. He also states that he did not urinate on himself or stab a bedside urinal fell on the floor. At time of my evaluation patient has been evaluated by neurology and deemed not a TPA candidate given symptoms greater than 4.5 hours and no new deficits detected on exam. Patient did develop nausea vomiting and was provided Zofran. Patient denies pain - Related Data Home Medications: Home Medications Medication Instructions Recorded Confirmed Last Taken Rosuvastatin Calcium 10 mg PO QDAY 07/31/19 08/03/20 Unknown carvediloL [Coreg] 6.25 mg PO BID 07/31/19 08/03/20 Unknown Previous Rx's Medication Instructions Recorded Last Taken Type Aspirin EC [Halfprin EC] 81 mg PO QDAY #30 tablet 08/09/20 Unknown Rx AtorvaSTATin [Lipitor] 80 mg PO QHS #30 tablet 08/09/20 Unknown Rx Bicalutamide 50 mg PO DAILY #30 tab 08/09/20 Unknown Rx Clopidogrel [Plavix] 75 mg PO QDAY #30 tablet 08/09/20 Unknown Rx Linaclotide [Linzess] 72 mcg PO DAILY #30 tab 08/09/20 Unknown Rx Sodium Bicarbonate 650 mg PO DAILY #60 tab 08/09/20 Unknown Rx amLODIPine 10 mg PO QDAY #30 tablet 08/09/20 Unknown Rx cloNIDine [Catapres] 0.1 mg PO Q8HR #90 tablet 08/09/20 Unknown Rx hydrALAZINE [Apresoline TAB] 50 mg PO Q8HR #90 tablet 08/09/20 Unknown Rx Allergies/Adverse Reactions: Allergies Allergy/AdvReac Type Severity Reaction Status Date / Time No Known Allergies Allergy Unverified 10/04/20 15:30 ED Review of Systems ROS: Stated complaint: POSS CVA Other details as noted in HPI Comment: All other systems reviewed and negative ED Past Medical Hx - Past Medical History Previous Medical History?: Yes Hx Hypertension: Yes Hx CVA: Yes (L deficits) Hx Congestive Heart Failure: No Hx Diabetes: No Hx Renal Disease: Yes Hx Asthma: No Hx COPD: No - Social History Smoking Status: Current Every Day Smoker Substance Use Type: None - Medications Home Medications: Home Medications Medication Instructions Recorded Confirmed Last Taken Type Rosuvastatin Calcium 10 mg PO QDAY 07/31/19 08/03/20 Unknown History carvediloL [Coreg] 6.25 mg PO BID 07/31/19 08/03/20 Unknown History Aspirin EC [Halfprin EC] 81 mg PO QDAY #30 tablet 08/09/20 Unknown Rx AtorvaSTATin [Lipitor] 80 mg PO QHS #30 tablet 08/09/20 Unknown Rx Bicalutamide 50 mg PO DAILY #30 tab 08/09/20 08/03/20 Unknown Rx Clopidogrel [Plavix] 75 mg PO QDAY #30 tablet 08/09/20 Unknown Rx Linaclotide [Linzess] 72 mcg PO DAILY #30 tab 08/09/20 08/03/20 Unknown Rx Sodium Bicarbonate 650 mg PO DAILY #60 tab 08/09/20 08/03/20 Unknown Rx amLODIPine 10 mg PO QDAY #30 tablet 08/09/20 Unknown Rx cloNIDine [Catapres] 0.1 mg PO Q8HR #90 tablet 08/09/20 Unknown Rx hydrALAZINE [Apresoline TAB] 50 mg PO Q8HR #90 tablet 08/09/20 Unknown Rx ED Neuro Physical Exam - General Limitations: Physical Limitation Suspected Stroke: Yes - Neurological Exam Neurological exam: Present: altered - NIHSS Assessment Interval: Baseline 1a. Level of Consciousness: alert/keenly responsive 1b. LOC Questions: answers both correctly 1c. LOC Commands: performs tasks correctly 2. Best Gaze: normal 3. Visual: no visual loss 4. Facial Palsy: normal symmetrical movement 5b. Motor Arm Right: no drift 5a. Motor Arm Left: drift 6a. Motor Leg Left: drift 6b. Motor Leg Right: no drift 7. Limb Ataxia: absent 8. Sensory: normal 9. Best Language: no aphasia 10. Dysarthria: mild/moderate dysarthria 11. Extinction/Inattention: no abnormality Total Score: 3 Stroke Severity: Minor Stroke - Other Other exam information: General: No acute distress Head: Atraumatic Eyes: normal appearance ENT: Moist mucous membranes Neck: Normal appearance, no midline tenderness Chest: Clear to auscultation bilaterally CV: Regular rate and rhythm Abdomen: Soft, normal bowel sounds, nontender, nondistended, no rebound or guarding Back: Normal inspection Extremity: Normal inspection, full range of motion Neuro: Alert O x 3, see NIH stroke scale. Patient's deficits documented on my exam are chronic per patient's history he denies any acute changes Psych: Appropriate behavior Skin: No rash ED Course - Consultations Consultation #1: 10/04/20 Telemetry neuro consulted upon patient's arrival - Lab Data Result diagrams: 10/04/20 15:39 10/04/20 15:39 Lab Results 10/04/20 10/04/20 10/04/20 Range/Units 15:39 15:39 15:39 WBC 7.0 (4.5-11.0) K/mm3 RBC 3.97 (3.65-5.03) M/mm3 Hgb 12.4 (11.8-15.2) gm/dl Hct 36.5 (35.5-45.6) % MCV 92 (84-94) fl MCH 31 (28-32) pg MCHC 34 (32-34) % RDW 14.7 (13.2-15.2) % Plt Count 176 (140-440) K/mm3 Lymph % (Auto) 18.6 (13.4-35.0) % [place] % (Auto) 10.7 H (0.0-7.3) % Eos % (Auto) 6.6 H (0.0-4.3) % Baso % (Auto) 0.7 (0.0-1.8) % Lymph # (Auto) 1.3 (1.2-5.4) K/mm3 [place] # (Auto) 0.7 (0.0-0.8) K/mm3 Eos # (Auto) 0.5 H (0.0-0.4) K/mm3 Baso # (Auto) 0.1 (0.0-0.1) K/mm3 Seg Neutrophils % 63.4 (40.0-70.0) % Seg Neutrophils # 4.4 (1.8-7.7) K/mm3 PT 13.5 (12.2-14.9) Sec. INR 1.01 (0.87-1.13) APTT 29.2 (24.2-36.6) Sec. Thrombin Time (15.1-19.6) Sec. Sodium 141 (137-145) mmol/L Potassium 4.5 (3.6-5.0) mmol/L Chloride 107.0 (98-107) mmol/L Carbon Dioxide 26 (22-30) mmol/L Anion Gap 13 mmol/L BUN 28 H (9-20) mg/dL Creatinine 2.3 H (0.8-1.3) mg/dL Estimated GFR 35 ml/min BUN/Creatinine Ratio 12 % Glucose 80 (75-100) mg/dL Calcium 9.5 (8.4-10.2) mg/dL Troponin T < 0.010 (0.00-0.029) ng/mL 10/04/20 Range/Units 15:39 WBC (4.5-11.0) K/mm3 RBC (3.65-5.03) M/mm3 Hgb (11.8-15.2) gm/dl Hct (35.5-45.6) % MCV (84-94) fl MCH (28-32) pg MCHC (32-34) % RDW (13.2-15.2) % Plt Count (140-440) K/mm3 Lymph % (Auto) (13.4-35.0) % [place] % (Auto) (0.0-7.3) % Eos % (Auto) (0.0-4.3) % Baso % (Auto) (0.0-1.8) % Lymph # (Auto) (1.2-5.4) K/mm3 [place] # (Auto) (0.0-0.8) K/mm3 Eos # (Auto) (0.0-0.4) K/mm3 Baso # (Auto) (0.0-0.1) K/mm3 Seg Neutrophils % (40.0-70.0) % Seg Neutrophils # (1.8-7.7) K/mm3 PT (12.2-14.9) Sec. INR (0.87-1.13) APTT (24.2-36.6) Sec. Thrombin Time 15.2 (15.1-19.6) Sec. Sodium (137-145) mmol/L Potassium (3.6-5.0) mmol/L Chloride (98-107) mmol/L Carbon Dioxide (22-30) mmol/L Anion Gap mmol/L BUN (9-20) mg/dL Creatinine (0.8-1.3) mg/dL Estimated GFR ml/min BUN/Creatinine Ratio % Glucose (75-100) mg/dL Calcium (8.4-10.2) mg/dL Troponin T (0.00-0.029) ng/mL - Radiology Data Radiology results: report reviewed NONENHANCED CT SCAN OF THE HEAD: INDICATION / CLINICAL INFORMATION: 60 years Male; neuro deficits <6hrs or sx present upon awakening. TECHNIQUE: Routine CT head without contrast. All CT scans at this location are performed using CT dose reduction for ALARA by means of automated exposure control. COMPARISON: CT scan of the head from 08/03/2020 and MRI scan of the brain from 08/04/2020 FINDINGS: BRAIN / INTRACRANIAL CONTENTS: In the 08/04/2020 MRI scan, subacute infarction seen in the parietal and frontal lobes; encephalomalacia seen in the previously seen infarct in the areas No acute hemorrhage, mass effect, midline shift, hydrocephalus, or acute, large territorial infarct. Periventricular low attenuation areas due to chronic small vessel disease; Chronic ischemic changes in the kerry CRANIOCERVICAL JUNCTION: No significant abnormality. ORBITS: No significant abnormality of visualized orbits. SINUSES / MASTOIDS: No significant abnormality of the visualized paranasal si nuses or mastoid air cells. ADDITIONAL FINDINGS: Empty sella IMPRESSION: No intracerebral hemorrhage or CT findings to suggest acute territorial infarction Encephalomalacia in the previously seen areas of subacute infarction in the right cerebral hemisphere Extensive white matter disease due to chronic small vessel disease - Medical Decision Making Patient presents to the hospital stating he fell cannot get off the floor. Patient was found on the floor by his daughter and thought to be incontinent of urine and altered. Patient apparently at baseline during teleneurologist evaluation. Teleneurologist evaluated patient and recommends neurology work-up to rule out TIA versus seizure (refer to note). Case discussed with the hospitalist for admission. Critical Care Time: No Critical care attestation.: If time is entered above; I have spent that time in minutes in the direct care of this critically ill patient, excluding procedure time. ED Disposition Clinical Impression: Stroke, History of CVA with residual deficit Disposition: OP ADMIT IP TO THIS HOSP Is pt being admited?: Yes Time of Disposition: 17:06 (Dr Herrmann/)
[2020-10-04 15:48] LABS: Basophils # (Auto) 0.1 K/mm3 (0.0-0.1); Basophils % (Auto) 0.7 % (0.0-1.8); Eosinophils # (Auto) 0.5 K/mm3 (0.0-0.4); Eosinophils % (Auto) 6.6 % (0.0-4.3); Hematocrit 36.5 % (35.5-45.6); Hemoglobin 12.4 gm/dl (11.8-15.2); Lymphocytes # (Auto) 1.3 K/mm3 (1.2-5.4); Lymphocytes % (Auto) 18.6 % (13.4-35.0); Mean Corpuscular HGB Conc 34 % (32-34); Mean Corpuscular Volume 92 fl (84-94); Monocytes # (Auto) 0.7 K/mm3 (0.0-0.8); Monocytes % (Auto) 10.7 % (0.0-7.3); Platelet Count 176 K/mm3 (140-440); Red Blood Count 3.97 M/mm3 (3.65-5.03); Red Cell Distribution Width 14.7 % (13.2-15.2)
--- NOTE | 2020-10-04 15:57 | Emergency Department Report ---
ED Neuro Deficit HPI - General Chief Complaint: Neuro Symptoms/Deficit Stated Complaint: POSS CVA Time Seen by Provider: 10/04/20 15:37 Source: patient, EMS Mode of arrival: Stretcher Limitations: Physical Limitation - History of Present Illness -: Gradual, Sudden - Related Data Home Medications: Home Medications Medication Instructions Recorded Confirmed Last Taken Rosuvastatin Calcium 10 mg PO QDAY 07/31/19 08/03/20 Unknown carvediloL [Coreg] 6.25 mg PO BID 07/31/19 08/03/20 Unknown Previous Rx's Medication Instructions Recorded Last Taken Type Aspirin EC [Halfprin EC] 81 mg PO QDAY #30 tablet 08/09/20 Unknown Rx AtorvaSTATin [Lipitor] 80 mg PO QHS #30 tablet 08/09/20 Unknown Rx Bicalutamide 50 mg PO DAILY #30 tab 08/09/20 Unknown Rx Clopidogrel [Plavix] 75 mg PO QDAY #30 tablet 08/09/20 Unknown Rx Linaclotide [Linzess] 72 mcg PO DAILY #30 tab 08/09/20 Unknown Rx Sodium Bicarbonate 650 mg PO DAILY #60 tab 08/09/20 Unknown Rx amLODIPine 10 mg PO QDAY #30 tablet 08/09/20 Unknown Rx cloNIDine [Catapres] 0.1 mg PO Q8HR #90 tablet 08/09/20 Unknown Rx hydrALAZINE [Apresoline TAB] 50 mg PO Q8HR #90 tablet 08/09/20 Unknown Rx Allergies/Adverse Reactions: Allergies Allergy/AdvReac Type Severity Reaction Status Date / Time No Known Allergies Allergy Unverified 10/04/20 15:30 ED Review of Systems ROS: Stated complaint: POSS CVA Other details as noted in HPI ED Past Medical Hx - Past Medical History Previous Medical History?: Yes Hx Hypertension: Yes Hx CVA: Yes (L deficits) Hx Congestive Heart Failure: No Hx Diabetes: No Hx Renal Disease: Yes Hx Asthma: No Hx COPD: No - Social History Smoking Status: Current Every Day Smoker Substance Use Type: None - Medications Home Medications: Home Medications Medication Instructions Recorded Confirmed Last Taken Type Rosuvastatin Calcium 10 mg PO QDAY 07/31/19 08/03/20 Unknown History carvediloL [Coreg] 6.25 mg PO BID 07/31/19 08/03/20 Unknown History Aspirin EC [Halfprin EC] 81 mg PO QDAY #30 tablet 08/09/20 Unknown Rx AtorvaSTATin [Lipitor] 80 mg PO QHS #30 tablet 08/09/20 Unknown Rx Bicalutamide 50 mg PO DAILY #30 tab 08/09/20 08/03/20 Unknown Rx Clopidogrel [Plavix] 75 mg PO QDAY #30 tablet 08/09/20 Unknown Rx Linaclotide [Linzess] 72 mcg PO DAILY #30 tab 08/09/20 08/03/20 Unknown Rx Sodium Bicarbonate 650 mg PO DAILY #60 tab 08/09/20 08/03/20 Unknown Rx amLODIPine 10 mg PO QDAY #30 tablet 08/09/20 Unknown Rx cloNIDine [Catapres] 0.1 mg PO Q8HR #90 tablet 08/09/20 Unknown Rx hydrALAZINE [Apresoline TAB] 50 mg PO Q8HR #90 tablet 08/09/20 Unknown Rx ED Neuro Physical Exam - General Limitations: Physical Limitation Suspected Stroke: Yes - NIHSS Assessment Interval: Baseline 1a. Level of Consciousness: alert/keenly responsive 1b. LOC Questions: answers both correctly 1c. LOC Commands: performs tasks correctly 2. Best Gaze: normal 3. Visual: no visual loss 4. Facial Palsy: normal symmetrical movement 5b. Motor Arm Right: no drift 5a. Motor Arm Left: no drift 6a. Motor Leg Left: no drift 6b. Motor Leg Right: no drift 7. Limb Ataxia: absent 8. Sensory: normal 9. Best Language: no aphasia 10. Dysarthria: normal 11. Extinction/Inattention: no abnormality Total Score: 0 Stroke Severity: No Stroke Symptoms - Psychiatric Psychiatric exam: Present: normal affect ED Course - Consultations Consultation #1: 10/04/20 15:53 [facility] Date of Service: 10/04/2020 15:10:06 Impression: Rule Out Acute Ischemic Stroke Transient Ischemic Attack possible seizure with postictal state Comments/Sign-Out: Patient with hx of prior CVA with residual leg weakness, DVT in past, CAD who presents after being found down by the family, incontinence, does not recall ev ent. Now at baseline, no new focal deficits. Possible TIA vs stroke with seizure at onset vs seizure with postictal confusion/todds now improved. Will need MRI brain, EEG to discern. Per chart review had keppra prescribed in 2019 but denies any history of seizure or taking any AEDs. seizure precautions, ativan prn, if MRI brain and/or EEG abnormal would start keppra 500mg BID. Allow for permissive hypertension. Metrics: Last Known Well: Unknown [employer] Notification Time: 10/04/2020 15:09:17 Arrival Time: 10/04/2020 15:21:00 Stamp Time: 10/04/2020 15:10:06 Time First Login Attempt: 10/04/2020 15:16:24 Video Start Time: 10/04/2020 15:35:07 Symptoms: found down, incontinent NIHSS Start Assessment Time: 10/04/2020 15:40:07 Patient is not a candidate for Alteplase/Activase. Patient was not deemed candidate for Alteplase/Activase thrombolytics because of Last Well Known Above 4.5 Hours. ED Physician notified of diagnostic impression and management plan on 10/04/2020 15:52:51 Our recommendations are outlined below. Recommendations: Activate Stroke Protocol Admission/Order Set Stroke/Telemetry Floor Neuro Checks Bedside Swallow Eval DVT Prophylaxis IV Fluids, Normal Saline Head of Bed 30 Degrees Euglycemia and Avoid Hyperthermia (PRN Acetaminophen) on dual antiplatelet therapy already on statin Routine Consultation with Inhouse Neurology for Follow up Care Sign Out: Discussed with Emergency Department Provider History of Present Illness: Patient is a 60 year old Male. Patient was brought by EMS for symptoms of found down, incontinent Patient is a 60 yr old gentleman with history of hypertension, ESRD not on dialysis, DVT, prior CVA who was found down by the family face down, incontinent and slurred speech. No witnessed seizure like activity. Family found him at 8am but by the time they brought him into ER his symptoms have resolved. Thinks he may have had a stroke 2 months ago denies dysarthria. Chronic leg weakness from prior CVA. Past Medical History: Hypertension Stroke Anticoagulant use: No Antiplatelet use: plavix, asa Examination: BP(169/101), Pulse(83), Blood Glucose(87) 1A: Level of Consciousness - Alert; keenly responsive + 0 1B: Ask Month and Age - Both Questions Right + 0 1C: Blink Eyes & Squeeze Hands - Performs Both Tasks + 0 2: Test Horizontal Extraocular Movements - Normal + 0 3: Test Visual العلي - No Visual Loss + 0 4: Test Facial Palsy (Use Grimace if Obtunded) - Normal symmetry + 0 5A: Test Left Arm Motor Drift - No Drift for 10 Seconds + 0 5B: Test Right Arm Motor Drift - No Drift for 10 Seconds + 0 6A: Test Left Leg Motor Drift - Drift, but doesn't hit bed + 1 6B: Test Right Leg Motor Drift - Drift, but doesn't hit bed + 1 7: Test Limb Ataxia (FNF/Heel-[place]) - No Ataxia + 0 8: Test Sensation - Normal; No sensory loss + 0 9: Test Language/Aphasia - Normal; No aphasia + 0 10: Test Dysarthria - Normal + 0 11: Test Extinction/Inattention - No abnormality + 0 NIHSS Score: 2 Patient/Family was informed the Neurology Consult would happen via TeleHealth consult by way of interactive audio and video telecommunications and consented to receiving care in this manner. Due to the immediate potential for life-threatening deterioration due to u nderlying acute neurologic illness, I spent 40 minutes providing critical care. This time includes time for face to face visit via telemedicine, review of medical records, imaging studies and discussion of findings with providers, the patient and/or family. Dr Tiera Low [employer] Case [id number] - Lab Data Result diagrams: 10/04/20 15:39 Lab Results 10/04/20 Range/Units 15:39 WBC 7.0 (4.5-11.0) K/mm3 RBC 3.97 (3.65-5.03) M/mm3 Hgb 12.4 (11.8-15.2) gm/dl Hct 36.5 (35.5-45.6) % MCV 92 (84-94) fl MCH 31 (28-32) pg MCHC 34 (32-34) % RDW 14.7 (13.2-15.2) % Plt Count 176 (140-440) K/mm3 Lymph % (Auto) 18.6 (13.4-35.0) % [place] % (Auto) 10.7 H (0.0-7.3) % Eos % (Auto) 6.6 H (0.0-4.3) % Baso % (Auto) 0.7 (0.0-1.8) % Lymph # (Auto) 1.3 (1.2-5.4) K/mm3 [place] # (Auto) 0.7 (0.0-0.8) K/mm3 Eos # (Auto) 0.5 H (0.0-0.4) K/mm3 Baso # (Auto) 0.1 (0.0-0.1) K/mm3 Seg Neutrophils % 63.4 (40.0-70.0) % Seg Neutrophils # 4.4 (1.8-7.7) K/mm3 Critical Care Time: Yes (30) Critical care attestation.: If time is entered above; I have spent that time in minutes in the direct care of this critically ill patient, excluding procedure time. ED Disposition Clinical Impression: Stroke Is pt being admited?: Yes Does the pt Need Aspirin: Yes
[2020-10-04] MEDS ORDERED: ONDANSETRON 4 MG/2 ML INJ IV ONE (16:00)
[2020-10-04 16:01] LABS: BUN/Creatinine Ratio 12; Blood Urea Nitrogen 28 mg/dL (9-20); Calcium 9.5 mg/dL (8.4-10.2); Hemolysis Index 4
--- NOTE | 2020-10-04 16:01 | Cat Scan Report ---
NONENHANCED CT SCAN OF THE HEAD: INDICATION / CLINICAL INFORMATION: 60 years Male; neuro deficits <6hrs or sx present upon awakening. TECHNIQUE: Routine CT head without contrast. All CT scans at this location are performed using CT dos e reduction for ALARA by means of automated exposure control. COMPARISON: CT scan of the head from 08/03/2020 and MRI scan of the brain from 08/04/2020 FINDINGS: BRAIN / INTRACRANIAL CONTENTS: In the 08/04/2020 MRI scan, subacute infarction seen in the parietal and frontal lobes; encephalomalacia seen in the previously seen infarct in the areas No acute hemorrhage, mass effect, midline shift, hydrocephalus, or acute, large territorial infarct. Periventricular low attenuation areas due to chronic small vessel disease; Chronic ischemic changes i n the kerry CRANIOCERVICAL JUNCTION: No significant abnormality. ORBITS: No significant abnormality of visualized orbits. SINUSES / MASTOIDS: No significant abnormality of the visualized paranasal sinuses or mastoid air camron ls. ADDITIONAL FINDINGS: Empty sella IMPRESSION: No intracerebral hemorrhage or CT findings to suggest acute territorial infarction Encephalomalacia in the previously seen areas of subacute infarction in the right cerebral hemisphere Extensive white matter disease due to chronic small vessel disease Signer Name: Tiffany Culver MD Signed: 10/04/2020 3:56 PM Workstation Name: [id number]
[2020-10-04 16:45] LABS: INR 1.01 (0.87-1.13)
[2020-10-04 16:46] LABS: Partial Thromboplastin Time 29.2 Sec. (24.2-36.6)
--- NOTE | 2020-10-04 18:05 | History and Physical Report ---
History of Present Illness Chief complaint: I do not know what happened really History of present illness: 60 YO Male with HTN, CVA LHP on DAPT, Nicotine Dependence, CKD, Seizure Disorder not currently taking AED, presents to ED for evaluation. Patient states that he was in his usual state of health at bedtime which was around 2200 hrs. overnight. Patient states that he awoke from sleep around 0800 hrs. this morn ing and fell getting out of bed and could not get himself off of the floor. Patient daughter reports finding patient down on the floor, confused, and covered in urine. EMS was notified and upon arrival the patient was found to be in distress with a neurologic deficit. A code stroke was called and the patient was transported to [facility] for further care and evaluation of the aforementioned symptoms. Patient seen and evaluated in the emergency department. All lab and imaging studies reviewed. Patient was found to have clinical symptoms consistent with CVA and was initiated on stroke protocol in the emergency department. Teleneurology was consulted and the patient was deemed not a candidate for TPA. Patient placed in observation status and initiated on stroke protocol. Patient denies fever, chills, chest pain, palpitations, productive cough, skin rash, recent ill contacts, or known exposure to COVID-19. Prior admission on 08/04/2020 reviewed. All medication listed at time of admission have been reconciled. Advanced care planning conducted in ED. Past History Past Medical History: hypertension, renal failure, seizures, stroke Past Surgical History: No surgical history, Other (Reviewed) Social history: , lives with family Family history: hypertension Medications and Allergies Allergies Allergy/AdvReac Type Severity Reaction Status Date / Time No Known Allergies Allergy Unverified 10/04/20 15:30 Home Medications Medication Instructions Recorded Confirmed Last Taken Type Rosuvastatin Calcium 10 mg PO QDAY 07/31/19 08/03/20 Unknown History carvediloL [Coreg] 6.25 mg PO BID 07/31/19 08/03/20 Unknown History Aspirin EC [Halfprin EC] 81 mg PO QDAY #30 tablet 08/09/20 Unknown Rx AtorvaSTATin [Lipitor] 80 mg PO QHS #30 tablet 08/09/20 Unknown Rx Bicalutamide 50 mg PO DAILY #30 tab 08/09/20 08/03/20 Unknown Rx Clopidogrel [Plavix] 75 mg PO QDAY #30 tablet 08/09/20 Unknown Rx Linaclotide [Linzess] 72 mcg PO DAILY #30 tab 08/09/20 08/03/20 Unknown Rx Sodium Bicarbonate 650 mg PO DAILY #60 tab 08/09/20 08/03/20 Unknown Rx amLODIPine 10 mg PO QDAY #30 tablet 08/09/20 Unknown Rx cloNIDine [Catapres] 0.1 mg PO Q8HR #90 tablet 08/09/20 Unknown Rx hydrALAZINE [Apresoline TAB] 50 mg PO Q8HR #90 tablet 08/09/20 Unknown Rx Review of Systems Constitutional: no weight loss, no weight gain, no fever Ears, nose, mouth and throat: no ear pain, no ear discharge, no tinnitis, no decreased hearing, no nose pain Cardiovascular: no chest pain, no orthopnea, no palpitations, no rapid/irregular heart beat, no syncope Respiratory: no cough, no cough with sputum, no excessive sputum, no dyspnea on exertion Gastrointestinal: no abdominal pain, no nausea, no vomiting, no diarrhea, no change in bowel habits, no coffee ground emesis Genitourinary Male: no hematuria, no urinary frequency, no urinary hesitancy Rectal: no pain, no incontinence, no bleeding Musculoskeletal: no neck stiffness, no neck pain, no shooting arm pain, no sh ooting leg pain, no leg numbness/tingling, no redness of joints Integumentary: no rash, no pruritis, no redness, no wounds, no jaundice Neurological: weakness, lack of coordination, balance difficulties, no head injury, no transient paralysis, no convulsions, no change in speech Psychiatric: no anxiety, no memory loss, no change in sleep habits, no sleep disturbances, no insomnia Endocrine: no cold intolerance, no heat intolerance, no polyphagia, no excessive thirst, no polydipsia, no polyuria Hematologic/Lymphatic: no easy bruising, no lymphedema Allergic/Immunologic: no urticaria, no allergic rhinitis, no wheezing, no anaphylaxis Exam - Constitutional General appearance: Present: mild distress - EENT Eyes: Present: PERRL ENT: hearing intact, clear oral mucosa - Neck Neck: Present: supple, normal ROM - Respiratory Respiratory effort: normal Respiratory: bilateral: CTA - Cardiovascular Heart Sounds: Present: S1 & S2. Absent: rub, click - Extremities Extremities: pulses symmetrical, No edema Peripheral Pulses: within normal limits - Abdominal General gastrointestinal: Present: soft, non-tender, non-distended, normal bowel sounds Male genitourinary: Present: normal - Integumentary Integumentary: Present: clear, warm, dry - Musculoskeletal Musculoskeletal: left sided weakness - Psychiatric Psychiatric: appropriate mood/affect, intact judgment & insight - Neurologic Neurologic: CNII-XII intact, moves all extremities, no gait normal HEART Score - HEART Score Troponin: Troponin T < 0.010 ng/mL (0.00-0.029) 10/04/20 15:39 Results - Labs CBC & Chem 7: 10/04/20 15:39 10/04/20 15:39 Labs: Abnormal lab results 10/04/20 10/04/20 Range/Units 15:39 15:39 [place] % (Auto) 10.7 H (0.0-7.3) % Eos % (Auto) 6.6 H (0.0-4.3) % Eos # (Auto) 0.5 H (0.0-0.4) K/mm3 BUN 28 H (9-20) mg/dL Creatinine 2.3 H (0.8-1.3) mg/dL Assessment and Plan - Patient Problems (1) CVA (cerebral vascular accident) Current Visit: Yes Status: Acute Plan to address problem: CVA protocol, CT head, Neuro check, DAPT, Lipid panel, Teleneurology consulted, PT consulted, OT consulted, Speech therapy consulted, Echocardiogram, Carotid doppler. (2) Chronic kidney disease (CKD) Current Visit: Yes Status: Acute Qualifiers: Chronic kidney disease stage: stage 2 (mild) Qualified Code(s): N18.2 - Chronic kidney disease, stage 2 (mild) Plan to address problem: IVF resuscitation, supportive care. (3) Seizure disorder Current Visit: Yes Status: Acute Plan to address problem: Keppra bid, continue current therapy, seizure precautions. (4) Nicotine dependence Current Visit: No Status: Acute Qualifiers: Nicotine product type: cigarettes Substance use status: in withdrawal Qualified Code(s): F17.213 - Nicotine dependence, cigarettes, with withdrawal Plan to address problem: Supportive care. smoking cessation counseling, (5) HTN (hypertension) Current Visit: No Status: Chronic Qualifiers: Hypertension type: essential hypertension Qualified Code(s): I10 - Essential (primary) hypertension Plan to address problem: Monitor BP q shift, continue medical management (6) DVT prophylaxis Current Visit: Yes Status: Acute Plan to address problem: SCD to BLE while in bed (7) Advance care planning Current Visit: Yes Status: Acute Plan to address problem: Disease education conducted, prognosis discussed, patient is full code, care plan discussed, patient acknowledges understanding and agreement with care plan, +30 minutes.
[2020-10-04] MEDS ORDERED: METOCLOPRAMIDE 10 MG TAB PO PRN (18:06)
[2020-10-04] MEDS ORDERED: MAGNESIUM HYDROXIDE (MOM) ORAL LIQD UDC PO PRN (18:06)
[2020-10-04] MEDS ORDERED: PROMETHAZINE 25 MG RECT SUPP PR PRN (18:06)
[2020-10-04] MEDS ORDERED: ACETAMINOPHEN 325 MG TAB PO PRN (18:06)
[2020-10-04] MEDS ORDERED: levETIRAcetam 500 MG TAB PO ONE (20:25)
[2020-10-04] MEDS ORDERED: METOCLOPRAMIDE 10 MG TAB ONE (20:38)
[2020-10-04] MEDS: levETIRAcetam 500 MG TAB PO SCH ×2 (20:41→21:54)
[2020-10-04] MEDS ORDERED: hydrALAZINE 25 MG TAB ONE (21:47)
[2020-10-04] MEDS ORDERED: cloNIDine 0.1 MG TAB ONE (21:47)
[2020-10-04] MEDS ORDERED: carvediloL 6.25 MG TAB ONE (21:47)
[2020-10-04] MEDS: hydrALAZINE 25 MG TAB PO SCH (21:51)
[2020-10-04] MEDS: cloNIDine 0.1 MG TAB PO SCH (21:52)
[2020-10-04] MEDS: carvediloL 6.25 MG TAB PO SCH (21:53)
[2020-10-05] MEDS: hydrALAZINE 25 MG TAB PO SCH ×3 (05:32→22:32)
[2020-10-05] MEDS: cloNIDine 0.1 MG TAB PO SCH ×3 (05:32→22:36)
[2020-10-05] MEDS ORDERED: NON-FORMULARY EACH (Linaclotide [Linzess] 72 MCG) PO SCH (10:00)
[2020-10-05] MEDS ORDERED: NON-FORMULARY EACH (Rosuvastatin Calcium [Rosuvastatin Calcium] 10 MG) PO SCH (10:00)
[2020-10-05] MEDS ORDERED: ASPIRIN 325 MG TAB PO SCH (10:00)
[2020-10-05] MEDS ORDERED: ASPIRIN EC 81 MG TAB PO SCH (10:00)
[2020-10-05 10:39] LABS: Chol/HDL Ratio 2.16 %
[2020-10-05] MEDS: carvediloL 6.25 MG TAB PO SCH ×2 (12:10→22:37)
[2020-10-05] MEDS: amLODIPine 10 MG TAB PO SCH (12:10)
[2020-10-05] MEDS: BICALUTAMIDE 50 MG TAB PO SCH (12:10)
[2020-10-05] MEDS: levETIRAcetam 500 MG TAB PO SCH (12:11)
[2020-10-05] MEDS: SODIUM BICARBONATE 650 MG TAB PO SCH (12:11)
[2020-10-05] MEDS: CLOPIDOGREL 75 MG TAB PO SCH (12:11)
--- NOTE | 2020-10-05 15:00 | Consultation ---
History of Present Illness Consult date: 10/05/20 Reason for Consult: TIA Chief complaint: "I slipped off the bed." History of present illness: 60 yo male with ischemic stroke w/ residual left hemiparesis w/ dysarthria, htn, renal failure, seizure d/o (w/ dialysis only; few years ago), presents where he slipped off the bed while trying to change his clothes. He did not loose consciousness. Notes no transient symptoms such as worsening slurred speech, worsening weakness, changes in his primary senses, or paresthesias during this event. The daughter, at bedside, notes that the patient has been becoming weaker w/ each stroke he has had in the past. He has had a total of 5 strokes with the last stroke in June of this year, with each stroke affecting the left side of the body. He is compliant with Aspirin 81 mg a day. Past History Past Medical History: hypertension, renal failure, seizures, stroke Past Surgical History: No surgical history, Other (Reviewed) Social history: , lives with family Family history: hypertension Medications and Allergies Allergies Allergy/AdvReac Type Severity Reaction Status Date / Time No Known Allergies Allergy Unverified 10/04/20 15:30 Home Medications Medication Instructions Recorded Confirmed Last Taken Type Rosuvastatin Calcium 10 mg PO QDAY 07/31/19 08/03/20 Unknown History carvediloL [Coreg] 6.25 mg PO BID 07/31/19 08/03/20 Unknown History Clopidogrel [Plavix] 75 mg PO QDAY #30 tablet 08/09/20 Unknown Rx Linaclotide [Linzess] 72 mcg PO DAILY #30 tab 08/09/20 08/03/20 Unknown Rx Sodium Bicarbonate 650 mg PO DAILY #60 tab 08/09/20 08/03/20 Unknown Rx amLODIPine 10 mg PO QDAY #30 tablet 08/09/20 Unknown Rx cloNIDine [Catapres] 0.1 mg PO Q8HR #90 tablet 08/09/20 Unknown Rx hydrALAZINE [Apresoline TAB] 50 mg PO Q8HR #90 tablet 08/09/20 Unknown Rx Gabapentin [Neurontin] 300 mg PO Q8HR 10/05/20 10/05/20 Unknown History Active Meds: Active Medications Acetaminophen (Tylenol) 650 mg PO Q4H PRN PRN Reason: Pain, Mild (1-3) Amlodipine Besylate (Amlodipine) 10 mg PO QDAY [facility] Last Admin: 10/05/20 12:10 Dose: Not Given Documented by: Aspirin (Halfprin Ec) 81 mg PO QDAY [facility] Last Admin: 10/05/20 12:11 Dose: Not Given Documented by: Atorvastatin Calcium (Lipitor) 80 mg PO QHS [facility] Last Admin: 10/04/20 21:53 Dose: 80 mg Documented by: Bicalutamide (Casodex) 50 mg PO DAILY [facility] Last Admin: 10/05/20 12:10 Dose: Not Given Documented by: Bisacodyl (Dulcolax) 10 mg [place] QDAY PRN PRN Reason: Constipation Carvedilol (Coreg) 6.25 mg PO BID [facility] Last Admin: 10/05/20 12:10 Dose: Not Given Documented by: Clonidine HCl (Catapres) 0.1 mg PO Q8HR [facility] Last Admin: 10/05/20 05:32 Dose: 0.1 mg Documented by: Clopidogrel Bisulfate (Plavix) 75 mg PO QDAY [facility] Last Admin: 10/05/20 12:11 Dose: Not Given Documented by: Hydralazine HCl (Apresoline) 50 mg PO Q8HR [facility] Last Admin: 10/05/20 05:32 Dose: 50 mg Documented by: Levetiracetam (Keppra) 500 mg PO BID [facility] Last Admin: 10/05/20 12:11 Dose: Not Given Documented by: Magnesium Hydroxide (Milk Of Magnesia) 30 ml PO Q4H PRN PRN Reason: Constipation Metoclopramide HCl (Reglan) 10 mg PO Q6H PRN PRN Reason: Nausea And Vomiting Last Admin: 10/04/20 20:39 Dose: 10 mg Documented by: Miscellaneous Medication (Linaclotide [Linzess]) 72 mcg PO DAILY [facility] Ondansetron HCl (Zofran) 4 mg IV Q8H PRN PRN Reason: Nausea And Vomiting Promethazine HCl (Phenergan) 25 mg [place] Q6H PRN PRN Reason: Nausea And Vomiting Sodium Bicarbonate (Sodium Bicarbonate) 650 mg PO DAILY [facility] Last Admin: 10/05/20 12:11 Dose: Not Given Documented by: Sodium Chloride (Sodium Chloride Flush Syringe 10 Ml) 10 ml IV PRN PRN PRN Reason: LINE FLUSH Review of Systems All systems: negative (as per HPI;) Physical Examination - Vital Signs Vital Signs: Vital Signs Temp Pulse Resp BP Pulse Ox 98.0 F 82 13 169/101 99 10/04/20 15:50 10/04/20 15:50 10/04/20 15:50 10/04/20 15:50 10/04/20 15:50 - Additional Exam Additional Exam: Gen: nad, well-nourished; Head: normocephalic; Eyes: no gaze deviation; no ptosis; ENT: congested vocalization; CVS: warm and well-perfused; Pulm: no respiratory distress; GI: non-distended, protuberant; Ext: no cyanosis at distal extremities; Skin: no acute rash at distal extremities; Heme: no pathologic ecchymosis at distal extremities; Neuro: alert, oriented to name, age, daughter, not month, moderate dysarthria, mild expressive aphasia, CN 2 - PERRL, visual biswas intact, CN 3, 4, 6 - EOMI, CN 5 - facial sensation symmetric decreased on left to light touch, CN 7 - facial movement decreased on left, CN 8 - hearing grossly intact, CN 9, 10 - uvula midline, CN 11 - shrug symmetric, CN 12 - tongue midline; Motor - at least 4/5 at right exts; 0/5 at LUE; at least 3-/5 at LLE; Sensory - light touch decreased at left extremities, Cerebellar - fnf /hts intact on the right only; deficit on left secondary to weakness; Gait - deferred secondary to fall risk; NIHSS (1a.) Level of Consciousness: (1b.) LOC Questions:1 (1c.) LOC Commands:0 (2.) Best Gaze:0 (3.) Visual:0 (4.) Facial Palsy:1 (5a.) Motor Arm, Left:4 (5b.) Motor Arm, Right:0 (6a.) Motor Leg, Left:1 (6b.) Motor Leg, Right:0 (7.) Limb Ataxia:0 (8.) Sensory:2 (9.) Best Language:0 (10.) Dysarthria:2 (11.) Extinction and Inattention:0 NIHSS Total Score:11 Results - Laboratory Findings CBC and BMP: 10/04/20 15:39 11/09/20 15:39 Abnormal Lab Findings: Abnormal Labs 10/04/20 10/04/20 10/05/20 15:39 15:39 00:58 [place] % (Auto) 10.7 H Eos % (Auto) 6.6 H Eos # (Auto) 0.5 H BUN 28 H Creatinine 2.3 H POC Glucose 122 H Assessment and Plan 60 yo male with ischemic stroke w/ residual left hemiparesis w/ dysarthria, htn, renal failure, seizure d/o (w/ dialysis only; few years ago), presents where he slipped off the bed while trying to change his clothes. He did not loose consciousness. Notes no transient symptoms such as worsening slurred speech, worsening weakness, changes in his primary senses, or paresthesias during this event. 1. Hx of Stroke - Aspirin 325 mg PO qday; statin therapy for a goal LDL of 70; recommend ST/PT/OT evaluation/monitoring. 2. HTN - normotension. 3. Seizure d/o - remote hx and no indication of an ictal event based on clinical history. 4. Recommend a home health aide, if possible, since daughter states that she got a job recently and will not be available to be at home 24 hours anymore. This incident stemeed from the attempt of the patient to dress/undress himself and leading to a fall. Jose Winkler MD Neurology
--- NOTE | 2020-10-05 15:40 | Vascular Lab Report ---
carotid duplex BILAT INDICATION / CLINICAL INFORMATION: stroke COMPARISON: Carotid ultrasound 08/04/2020. FINDINGS: There is atherosclerosis seen within the bilateral carotid bulbs. RIGHT CAROTID: - CCA velocity: 50 cm/sec. - ICA peak systolic velocity: 40 cm/sec. - ICA/CCA PSV Ratio: Less than 2 Right Vertebral Artery: Antegrade flow. LEFT CAROTID: - CCA velocity: 67 cm/sec. - ICA peak systolic velocity: 52 cm/sec. - ICA/CCA PSV Ratio: Less than 2 Left Vertebral Artery: Antegrade flow. IMPRESSION: 1. Atherosclerosis with less than 50% stenosis bilaterally.. Velocity criteria are extrapolated from diameter data as defined by the Society of Radiologists in Ul trasound Consensus Conference, Radiology 2003; 229;340-346. NO STENOSIS (NORMAL) * Plaque = none; ICA PSV < 125 cm/sec; ICA/CCA PSV Ratio < 2.0 <50% STENOSIS * Plaque < 50%; ICA PSV < 125 cm/sec; ICA/CCA PSV Ratio < 2.0 50-69% STENOSIS * Plaque > 50%; ICA PSV = 125-230 cm/sec; ICA/CCA PSV Ratio = 2.0-4.0 >70% BUT <100% STENOSIS * Plaque > 50%; ICA PSV > 230 cm/sec; ICA/CCA PSV Ratio > 4.0 NEAR OCCLUSION * Plaque = visible lumen; ICA PSV = high/low/none; ICA/CCA PSV Ratio = variable TOTAL OCCLUSION * Plaque = no lumen; ICA PSV = none; ICA/CCA PSV Ratio = N/A Signer Name: Timoteo Harvey MD Signed: 10/05/2020 3:35 PM Workstation Name: [id number]
--- NOTE | 2020-10-05 17:48 | Progress Note ---
Assessment and Plan Assessment and plan: 60 YO Male with HTN, CVA LHP on DAPT, Nicotine Dependence, CKD, Seizure Disorder not currently taking AED, presents to ED for evaluation. Patient states that he was in his usual state of health at bedtime which was around 2200 hrs. overnight. Patient states that he awoke from sleep around 0800 hrs. this morning and fell getting out of bed and could not get himself off of the floor. Patient daughter reports finding patient down on the floor, confused, and covered in urine. EMS was notified and upon arrival the patient was found to be in distress with a neurologic deficit. A code stroke was called and the patient was transported to [facility] for further care and evaluation of the aforementioned sym ptoms. Patient seen and evaluated in the emergency department. All lab and imaging studies reviewed. Patient was found to have clinical symptoms consistent with CVA and was initiated on stroke protocol in the emergency department. Teleneurology was consulted and the patient was deemed not a cand idate for TPA. Patient placed in observation status and initiated on stroke protocol. Patient denies fever, chills, chest pain, palpitations, productive cough, skin rash, recent ill contacts, or known exposure to COVID-19. Prior admission on 08/04/2020 reviewed. All medication listed at time of admission have been reconciled. Advanced care planning conducted in ED. 10/05: Patient remains very lethargic awaiting neurology work-up. No new findings of neurologic dysfunction was noted. Left-sided weakness is residual from prior. Reevaluate speech swallow when more awake. (1) CVA (cerebral vascular accident) Current Visit: Yes Status: Acute Plan to address problem: CVA protocol, CT head, Neuro check, DAPT, Lipid panel, Teleneurology consulted, PT consulted, OT consulted, Speech therapy consulted, Echocardiogram, Carotid doppler. (2) Chronic kidney disease (CKD) Current Visit: Yes Status: Acute Qualifiers: Chronic kidney disease stage: stage 2 (mild) Qualified Code(s): N18.2 - Chronic kidney disease, stage 2 (mild) Plan to address problem: IVF resuscitation, supportive care. (3) Seizure disorder Current Visit: Yes Status: Acute Plan to address problem: Keppra bid, continue current therapy, seizure precautions. (4) Nicotine dependence Current Visit: No Status: Acute Qualifiers: Nicotine product type: cigarettes Substance use status: in withdrawal Qualified Code(s): F17.213 - Nicotine dependence, cigarettes, with withdrawal Plan to address problem: Supportive care. smoking cessation counseling, (5) HTN (hypertension) Current Visit: No Status: Chronic Qualifiers: Hypertension type: essential hypertension Qualified Code(s): I10 - Essential (primary) hypertension Plan to address problem: Monitor BP q shift, continue medical management (6) DVT prophylaxis Current Visit: Yes Status: Acute Plan to address problem: SCD to BLE while in bed (7) Advance care planning Current Visit: Yes Status: Acute Plan to address problem: Disease education conducted, prognosis discussed, patient is full code, care plan discussed, patient acknowledges understanding and agreement with care plan, +30 minutes. History Interval history: Patient seen and examined remains very lethargic. Failed swallow evaluation per nursing staff. Hospitalist Physical - Physical exam Narrative exam: VITAL SIGNS: Reviewed. GENERAL: The patient appears normally developed, obese, lethargic chronically ill-appearing vital signs as documented. HEAD: No signs of head trauma. EYES: Pupils are equal. Extraocular motions intact. EARS: Hearing grossly intact. MOUTH: Oropharynx is normal. NECK: No adenopathy, no JVD. CHEST: Chest with crackles breath sounds bilaterally. No wheezes, rales, or rhonchi. CARDIAC: Regular rate and rhythm. S1 and S2, without murmurs, gallops, or rubs. VASCULAR: No Edema. Peripheral pulses normal and equal in all extremities. ABDOMEN: Soft, non tender and non distended. No rebound or guarding, and no masses palpated. Bowel Sounds normal. MUSCULOSKELETAL: Good range of motion of all major joints. Extremities without clubbing, cyanosis or edema. NEUROLOGIC EXAM: Lethargic and obtunded left-sided hemiparesis residual chronic. Mild right facial droop. Unchanged per staff. Speech gurgly. Follows commands. PSYCHIATRIC: Mood normal. SKIN: detail exam as documented in skin assessment - Constitutional Vitals: Temp Pulse Resp BP Pulse Ox 98.5 F 74 19 133/94 98 10/05/20 15:43 10/05/20 16:01 10/05/20 11:01 10/05/20 16:01 10/05/20 16:01 General appearance: Present: mild distress HEART Score - HEART Score Troponin: Troponin T < 0.010 ng/mL (0.00-0.029) 10/04/20 15:39 Results - Labs CBC & Chem 7: 10/04/20 15:39 10/04/20 15:39 Labs: Laboratory Last Values WBC 7.0 K/mm3 (4.5-11.0) 10/04/20 15:39 RBC 3.97 M/mm3 (3.65-5.03) 10/04/20 15:39 Hgb 12.4 gm/dl (11.8-15.2) 10/04/20 15:39 Hct 36.5 % (35.5-45.6) 10/04/20 15:39 MCV 92 fl (84-94) 10/04/20 15:39 MCH 31 pg (28-32) 10/04/20 15:39 MCHC 34 % (32-34) 10/04/20 15:39 RDW 14.7 % (13.2-15.2) 10/04/20 15:39 Plt Count 176 K/mm3 (140-440) 10/04/20 15:39 Lymph % (Auto) 18.6 % (13.4-35.0) 10/04/20 15:39 [place] % (Auto) 10.7 % (0.0-7.3) H 10/04/20 15:39 Eos % (Auto) 6.6 % (0.0-4.3) H 10/04/20 15:39 Baso % (Auto) 0.7 % (0.0-1.8) 10/04/20 15:39 Lymph # (Auto) 1.3 K/mm3 (1.2-5.4) 10/04/20 15:39 [place] # (Auto) 0.7 K/mm3 (0.0-0.8) 10/04/20 15:39 Eos # (Auto) 0.5 K/mm3 (0.0-0.4) H 10/04/20 15:39 Baso # (Auto) 0.1 K/mm3 (0.0-0.1) 10/04/20 15:39 Seg Neutrophils % 63.4 % (40.0-70.0) 10/04/20 15:39 Seg Neutrophils # 4.4 K/mm3 (1.8-7.7) 10/04/20 15:39 PT 13.5 Sec. (12.2-14.9) 10/04/20 15:39 INR 1.01 (0.87-1.13) 10/04/20 15:39 APTT 29.2 Sec. (24.2-36.6) 10/04/20 15:39 Thrombin Time 15.2 Sec. (15.1-19.6) 10/04/20 15:39 Sodium 141 mmol/L (137-145) 10/04/20 15:39 Potassium 4.5 mmol/L (3.6-5.0) 10/04/20 15:39 Chloride 107.0 mmol/L (98-107) 10/04/20 15:39 Carbon Dioxide 26 mmol/L (22-30) 10/04/20 15:39 Anion Gap 13 mmol/L 10/04/20 15:39 BUN 28 mg/dL (9-20) H 10/04/20 15:39 Creatinine 2.3 mg/dL (0.8-1.3) H 10/04/20 15:39 Estimated GFR 35 ml/min 10/04/20 15:39 BUN/Creatinine Ratio 12 % 10/04/20 15:39 Glucose 80 mg/dL (75-100) 10/04/20 15:39 POC Glucose 97 mg/dL (70-105) 10/05/20 12:19 Calcium 9.5 mg/dL (8.4-10.2) 10/04/20 15:39 Troponin T < 0.010 ng/mL (0.00-0.029) 10/04/20 15:39 Triglycerides 51 mg/dL (2-149) 10/05/20 09:46 Cholesterol 115 mg/dL (50-199) 10/05/20 09:46 LDL Cholesterol Direct 56 mg/dL (50-130) 10/05/20 09:46 HDL Cholesterol 53 mg/dL (40-59) 10/05/20 09:46 Cholesterol/HDL Ratio 2.16 % 10/05/20 09:46 [place]/IV: Voiding Method Condom Catheter IV Catheter Type [Right Hand] Peripheral IV Active Medications - Current Medications Current Medications: Generic Name Dose Route Start Last Admin Trade Name Freq PRN Reason Stop Dose Admin Acetaminophen 650 mg 10/04/20 18:06 Tylenol PO Q4H PRN Pain, Mild (1-3) Amlodipine Besylate 10 mg 10/05/20 10:00 10/05/20 12:10 Amlodipine PO Not Given QDAY [facility] Aspirin 81 mg 10/05/20 10:00 10/05/20 12:11 Halfprin Ec PO Not Given QDAY [facility] Atorvastatin Calcium 80 mg 10/04/20 22:00 10/04/20 21:53 Lipitor PO 80 mg QHS [facility] Administration Bicalutamide 50 mg 10/05/20 10:00 10/05/20 12:10 Casodex PO Not Given DAILY [facility] Bisacodyl 10 mg 10/04/20 18:06 Dulcolax [place] QDAY PRN Constipation Carvedilol 6.25 mg 10/04/20 22:00 10/05/20 12:10 Coreg PO Not Given BID [facility] Clonidine HCl 0.1 mg 10/04/20 22:00 10/05/20 15:31 Catapres PO Not Given Q8HR [facility] Clopidogrel Bisulfate 75 mg 10/05/20 10:00 10/05/20 12:11 Plavix PO Not Given QDAY [facility] Hydralazine HCl 50 mg 10/04/20 22:00 10/05/20 15:31 Apresoline PO Not Given Q8HR [facility] Levetiracetam 500 mg 10/04/20 19:34 10/05/20 12:11 Keppra PO Not Given BID [facility] Magnesium Hydroxide 30 ml 10/04/20 18:06 Milk Of Magnesia PO Q4H PRN Constipation Metoclopramide HCl 10 mg 10/04/20 18:06 10/04/20 20:39 Reglan PO 10 mg Q6H PRN Administration Nausea And Vomiting Miscellaneous Medication 72 mcg 10/05/20 10:00 Linaclotide [Linzess] PO DAILY [facility] Ondansetron HCl 4 mg 10/04/20 18:06 Zofran IV Q8H PRN Nausea And Vomiting Promethazine HCl 25 mg 10/04/20 18:06 Phenergan [place] Q6H PRN Nausea And Vomiting Sodium Bicarbonate 650 mg 10/05/20 10:00 10/05/20 12:11 Sodium Bicarbonate PO Not Given DAILY [facility] Sodium Chloride 10 ml 10/04/20 18:06 Sodium Chloride Flush Syringe 10 Ml IV PRN PRN LINE FLUSH
[2020-10-05] MEDS: levETIRAcetam 500 MG in DEXTROSE 5% IN WATER 100 ML IV SCH (22:51)
[2020-10-06] MEDS: hydrALAZINE 25 MG TAB PO SCH ×2 (07:15→16:46)
[2020-10-06] MEDS: cloNIDine 0.1 MG TAB PO SCH ×2 (07:15→16:46)
--- NOTE | 2020-10-06 08:48 | Progress Note ---
Assessment and Plan Assessment and plan: 60 YO Male with HTN, CVA LHP on DAPT, Nicotine Dependence, CKD, Seizure Disorder not currently taking AED, presents to ED for evaluation. Patient states that he was in his usual state of health at bedtime which was around 2200 hrs. overnight. Patient states that he awoke from sleep around 0800 hrs. this morning and fell getting out of bed and could not get himself off of the floor. Patient daughter reports finding patient down on the floor, confused, and covered in urine. EMS was notified and upon arrival the patient was found to be in distress with a neurologic deficit. A code stroke was called and the patient was transported to [facility] for further care and evaluation of the aforementioned sym ptoms. Patient seen and evaluated in the emergency department. All lab and imaging studies reviewed. Patient was found to have clinical symptoms consistent with CVA and was initiated on stroke protocol in the emergency department. Teleneurology was consulted and the patient was deemed not a cand idate for TPA. Patient placed in observation status and initiated on stroke protocol. Patient denies fever, chills, chest pain, palpitations, productive cough, skin rash, recent ill contacts, or known exposure to COVID-19. Prior admission on 08/04/2020 reviewed. All medication listed at time of admission have been reconciled. Advanced care planning conducted in ED. 10/05: Patient remains very lethargic awaiting neurology work-up. No new findings of neurologic dysfunction was noted. Left-sided weakness is residual from prior. Reevaluate speech swallow when more awake. 10/06: Neurology input noted appears that the patient fell while trying to put his shoes on. Home health will be required at discharge probably with 24-hour aide or patient may need to be placed will consult case management. Continue antiplatelets and statin therapy at this time. No indication for MRI. As patient had a recent MRI study. We will also transferred to the medical floor (1) CVA (cerebral vascular accident) Current Visit: Yes Status: Acute Plan to address problem: CVA protocol, CT head, Neuro check, DAPT, Lipid panel, Teleneurology consulted, PT consulted, OT consulted, Speech therapy consulted, Echocardiogram, Carotid doppler. (2) Chronic kidney disease (CKD) Current Visit: Yes Status: Acute Qualifiers: Chronic kidney disease stage: stage 2 (mild) Qualified Code(s): N18.2 - Chronic kidney disease, stage 2 (mild) Plan to address problem: IVF resuscitation, supportive care. (3) Seizure disorder Current Visit: Yes Status: Acute Plan to address problem: Keppra bid, continue current therapy, seizure precautions. (4) Nicotine dependence Current Visit: No Status: Acute Qualifiers: Nicotine product type: cigarettes Substance use status: in withdrawal Qualified Code(s): F17.213 - Nicotine dependence, cigarettes, with withdrawal Plan to address problem: Supportive care. smoking cessation counseling, (5) HTN (hypertension) Current Visit: No Status: Chronic Qualifiers: Hypertension type: essential hypertension Qualified Code(s): I10 - Essential (primary) hypertension Plan to address problem: Monitor BP q shift, continue medical management (6) DVT prophylaxis Current Visit: Yes Status: Acute Plan to address problem: SCD to BLE while in bed (7) Advance care planning Current Visit: Yes Status: Acute Plan to address problem: Disease education conducted, prognosis discussed, patient is full code, care plan discussed, patient acknowledges understanding and agreement with care plan, +30 minutes. History Interval history: Patient seen and examined remains very lethargic but more awake today. Hospitalist Physical - Physical exam Narrative exam: VITAL SIGNS: Reviewed. GENERAL: The patient appears normally developed, obese, lethargic chronically ill-appearing vital signs as documented. HEAD: No signs of head trauma. EYES: Pupils are equal. Extraocular motions intact. EARS: Hearing grossly intact. MOUTH: Oropharynx is normal. NECK: No adenopathy, no JVD. CHEST: Chest with crackles breath sounds bilaterally. No wheezes, rales, or rhonchi. CARDIAC: Regular rate and rhythm. S1 and S2, without murmurs, gallops, or rubs. VASCULAR: No Edema. Peripheral pulses normal and equal in all extremities. ABDOMEN: Soft, non tender and non distended. No rebound or guarding, and no masses palpated. Bowel Sounds normal. MUSCULOSKELETAL: Good range of motion of all major joints. Extremities without clubbing, cyanosis or edema. NEUROLOGIC EXAM: Lethargic and obtunded left-sided hemiparesis residual chronic. Mild right facial droop. Unchanged per staff. Speech gurgly. Follows commands. PSYCHIATRIC: Mood normal. SKIN: detail exam as documented in skin assessment - Constitutional Vitals: Temp Pulse Resp BP Pulse Ox 98.7 F 55 L 19 150/73 99 10/06/20 04:00 10/06/20 06:01 10/06/20 04:00 10/06/20 06:01 10/06/20 06:01 General appearance: Present: mild distress HEART Score - HEART Score Troponin: Troponin T < 0.010 ng/mL (0.00-0.029) 10/04/20 15:39 Results - Labs CBC & Chem 7: 10/04/20 15:39 10/04/20 15:39 Labs: Laboratory Last Values WBC 7.0 K/mm3 (4.5-11.0) 10/04/20 15:39 RBC 3.97 M/mm3 (3.65-5.03) 10/04/20 15:39 Hgb 12.4 gm/dl (11.8-15.2) 10/04/20 15:39 Hct 36.5 % (35.5-45.6) 10/04/20 15:39 MCV 92 fl (84-94) 10/04/20 15:39 MCH 31 pg (28-32) 10/04/20 15:39 MCHC 34 % (32-34) 10/04/20 15:39 RDW 14.7 % (13.2-15.2) 10/04/20 15:39 Plt Count 176 K/mm3 (140-440) 10/04/20 15:39 Lymph % (Auto) 18.6 % (13.4-35.0) 10/04/20 15:39 [place] % (Auto) 10.7 % (0.0-7.3) H 10/04/20 15:39 Eos % (Auto) 6.6 % (0.0-4.3) H 10/04/20 15:39 Baso % (Auto) 0.7 % (0.0-1.8) 10/04/20 15:39 Lymph # (Auto) 1.3 K/mm3 (1.2-5.4) 10/04/20 15:39 [place] # (Auto) 0.7 K/mm3 (0.0-0.8) 10/04/20 15:39 Eos # (Auto) 0.5 K/mm3 (0.0-0.4) H 10/04/20 15:39 Baso # (Auto) 0.1 K/mm3 (0.0-0.1) 10/04/20 15:39 Seg Neutrophils % 63.4 % (40.0-70.0) 10/04/20 15:39 Seg Neutrophils # 4.4 K/mm3 (1.8-7.7) 10/04/20 15:39 PT 13.5 Sec. (12.2-14.9) 10/04/20 15:39 INR 1.01 (0.87-1.13) 10/04/20 15:39 APTT 29.2 Sec. (24.2-36.6) 10/04/20 15:39 Thrombin Time 15.2 Sec. (15.1-19.6) 10/04/20 15:39 Sodium 141 mmol/L (137-145) 10/04/20 15:39 Potassium 4.5 mmol/L (3.6-5.0) 10/04/20 15:39 Chloride 107.0 mmol/L (98-107) 10/04/20 15:39 Carbon Dioxide 26 mmol/L (22-30) 10/04/20 15:39 Anion Gap 13 mmol/L 10/04/20 15:39 BUN 28 mg/dL (9-20) H 10/04/20 15:39 Creatinine 2.3 mg/dL (0.8-1.3) H 10/04/20 15:39 Estimated GFR 35 ml/min 10/04/20 15:39 BUN/Creatinine Ratio 12 % 10/04/20 15:39 Glucose 80 mg/dL (75-100) 10/04/20 15:39 POC Glucose 81 mg/dL (70-105) 10/06/20 05:42 Calcium 9.5 mg/dL (8.4-10.2) 10/04/20 15:39 Troponin T < 0.010 ng/mL (0.00-0.029) 10/04/20 15:39 Triglycerides 51 mg/dL (2-149) 10/05/20 09:46 Cholesterol 115 mg/dL (50-199) 10/05/20 09:46 LDL Cholesterol Direct 56 mg/dL (50-130) 10/05/20 09:46 HDL Cholesterol 53 mg/dL (40-59) 10/05/20 09:46 Cholesterol/HDL Ratio 2.16 % 10/05/20 09:46 Fontana/IV: Voiding Method Condom Catheter IV Catheter Type [Right Hand] Peripheral IV Active Medications - Current Medications Current Medications: Generic Name Dose Route Start Last Admin Trade Name Freq PRN Reason Stop Dose Admin Acetaminophen 650 mg 10/04/20 18:06 Tylenol PO Q4H PRN Pain, Mild (1-3) Amlodipine Besylate 10 mg 10/05/20 10:00 10/05/20 12:10 Amlodipine PO Not Given QDAY [facility] Aspirin 81 mg 10/05/20 10:00 10/05/20 12:11 Halfprin Ec PO Not Given QDAY [facility] Atorvastatin Calcium 80 mg 10/04/20 22:00 10/05/20 22:37 Lipitor PO Not Given QHS [facility] Bicalutamide 50 mg 10/05/20 10:00 10/05/20 12:10 Casodex PO Not Given DAILY [facility] Bisacodyl 10 mg 10/04/20 18:06 Dulcolax [place] QDAY PRN Constipation Carvedilol 6.25 mg 10/04/20 22:00 10/05/20 22:37 Coreg PO Not Given BID [facility] Clonidine HCl 0.1 mg 10/04/20 22:00 10/06/20 07:15 Catapres PO Not Given Q8HR [facility] Clopidogrel Bisulfate 75 mg 10/05/20 10:00 10/05/20 12:11 Plavix PO Not Given QDAY [facility] Hydralazine HCl 50 mg 10/04/20 22:00 10/06/20 07:15 Apresoline PO Not Given Q8HR [facility] Levetiracetam 500 mg/ Dextrose 105 mls @ 400 mls/hr 10/05/20 23:00 10/05/20 22:51 IV 400 mls/hr Q12HR OSEI Administration Labetalol HCl 10 mg 10/05/20 22:20 Labetalol IV Q6HR PRN Blood Pressure Magnesium Hydroxide 30 ml 10/04/20 18:06 Milk Of Magnesia PO Q4H PRN Constipation Metoclopramide HCl 10 mg 10/04/20 18:06 10/04/20 20:39 Reglan PO 10 mg Q6H PRN Administration Nausea And Vomiting Miscellaneous Medication 72 mcg 10/05/20 10:00 Linaclotide [Linzess] PO DAILY [facility] Ondansetron HCl 4 mg 10/04/20 18:06 Zofran IV Q8H PRN Nausea And Vomiting Promethazine HCl 25 mg 10/04/20 18:06 Phenergan [place] Q6H PRN Nausea And Vomiting Sodium Bicarbonate 650 mg 10/05/20 10:00 10/05/20 12:11 Sodium Bicarbonate PO Not Given DAILY [facility] Sodium Chloride 10 ml 10/04/20 18:06 Sodium Chloride Flush Syringe 10 Ml IV PRN PRN LINE FLUSH
[2020-10-06] MEDS: levETIRAcetam 500 MG in DEXTROSE 5% IN WATER 100 ML IV SCH (11:09)
--- NOTE | 2020-10-06 15:52 | XRay Report ---
XR abdomen 1V ap INDICATION / CLINICAL INFORMATION: ng tube placement. COMPARISON: 08/03/2020 FINDINGS/IMPRESSION: Nasogastric tube extends below the diaphragm with distal tip and side-port projecting within region o f the the gastric fundus. Signer Name: John Anderson MD Signed: 10/06/2020 3:47 PM Workstation Name: [id number]
[2020-10-06] MEDS ORDERED: SODIUM BICARBONATE 325 MG TAB FEEDTUBE PRN (16:00)
[2020-10-06] MEDS ORDERED: SIMPLE SYRUP 15 ML FEEDTUBE PRN ×2 (16:00)
[2020-10-06] MEDS ORDERED: LIPASE 10,500/PROTEASE 25,000/AMYLASE 43,750 (UNITS) DR CAP FEEDTUBE PRN (16:00)
[2020-10-06] MEDS: ASPIRIN 81 MG TAB CHEW PO SCH (16:47)
[2020-10-06] MEDS: BICALUTAMIDE 50 MG TAB PO SCH (16:47)
[2020-10-06] MEDS: SODIUM BICARBONATE 650 MG TAB PO SCH (16:47)
[2020-10-06] MEDS: CLOPIDOGREL 75 MG TAB PO SCH (16:48)
[2020-10-06] MEDS: amLODIPine 10 MG TAB PO SCH (16:48)
[2020-10-06] MEDS: carvediloL 6.25 MG TAB PO SCH (16:48)
[2020-10-06 16:53] LABS: Calcium 9.5 mg/dL (8.4-10.2)
--- NOTE | 2020-10-06 23:24 | XRay Report ---
ABDOMEN SINGLE VIEW INDICATION / CLINICAL INFORMATION: NG tube placement validation COMPARISON: 10/06/2020 at 1541 hours FINDINGS: NG tube has been replaced with enteric feeding tube. The tip of the feeding tube is in the proximal p ortion of the stomach. Signer Name: Leonor Seymour MD Signed: 10/06/2020 11:19 PM Workstation Name: [id number]
[2020-10-07] MEDS: levETIRAcetam 500 MG in DEXTROSE 5% IN WATER 100 ML IV SCH ×2 (01:20→09:24)
[2020-10-07] MEDS: hydrALAZINE 25 MG TAB PO SCH ×4 (01:20→21:36)
[2020-10-07] MEDS: cloNIDine 0.1 MG TAB PO SCH ×4 (01:20→21:36)
[2020-10-07] MEDS: carvediloL 6.25 MG TAB PO SCH ×3 (01:20→21:37)
[2020-10-07] MEDS: SODIUM BICARBONATE 650 MG TAB PO SCH (09:25)
[2020-10-07] MEDS: amLODIPine 10 MG TAB PO SCH (09:25)
[2020-10-07] MEDS: CLOPIDOGREL 75 MG TAB PO SCH (09:27)
[2020-10-07] MEDS: ASPIRIN 81 MG TAB CHEW PO SCH (09:48)
[2020-10-07] MEDS: BICALUTAMIDE 50 MG TAB PO SCH (10:28)
--- NOTE | 2020-10-07 10:35 | Progress Note ---
Assessment and Plan Assessment and plan: 60 YO Male with HTN, CVA LHP on DAPT, Nicotine Dependence, CKD, Seizure Disorder not currently taking AED, presents to ED for evaluation. Patient states that he was in his usual state of health at bedtime which was around 2200 hrs. overnight. Patient states that he awoke from sleep around 0800 hrs. this morning and fell getting out of bed and could not get himself off of the floor. Patient daughter reports finding patient down on the floor, confused, and covered in urine. EMS was notified and upon arrival the patient was found to be in distress with a neurologic deficit. A code stroke was called and the patient was transported to [facility] for further care and evaluation of the aforementioned sym ptoms. Patient seen and evaluated in the emergency department. All lab and imaging studies reviewed. Patient was found to have clinical symptoms consistent with CVA and was initiated on stroke protocol in the emergency department. Teleneurology was consulted and the patient was deemed not a cand idate for TPA. Patient placed in observation status and initiated on stroke protocol. Patient denies fever, chills, chest pain, palpitations, productive cough, skin rash, recent ill contacts, or known exposure to COVID-19. Prior admission on 08/04/2020 reviewed. All medication listed at time of admission have been reconciled. Advanced care planning conducted in ED. 10/05: Patient remains very lethargic awaiting neurology work-up. No new findings of neurologic dysfunction was noted. Left-sided weakness is residual from prior. Reevaluate speech swallow when more awake. 10/06: Neurology input noted appears that the patient fell while trying to put his shoes on. Home health will be required at discharge probably with 24-hour aide or patient may need to be placed will consult case management. Continue antiplatelets and statin therapy at this time. No indication for MRI. As patient had a recent MRI study. We will also transferred to the medical floor 10/07: Speech re-eval, pt for placement assessment. Spoke to the daughter today who will like placement and also gave me more information that the patient 5 days prior to presentation had facial droop and was getting weaker. Will proceed with MRI study considering the delay in returning to baseline and with this new information. Also patients daughter due to work will not be able to provided 24 hr care at this time which is what this patient needs. Aspiration precautions. for now tolerating tube feed (1) CVA (cerebral vascular accident) Current Visit: Yes Status: Acute Plan to address problem: CVA protocol, CT head, Neuro check, DAPT, Lipid panel, Teleneurology consulted, PT consulted, OT consulted, Speech therapy consulted, Echocardiogram, Carotid doppler. (2) Chronic kidney disease (CKD) Current Visit: Yes Status: Acute Qualifiers: Chronic kidney disease stage: stage 2 (mild) Qualified Code(s): N18.2 - Chronic kidney disease, stage 2 (mild) Plan to address problem: IVF resuscitation, supportive care. at baseline (3) Seizure disorder Current Visit: Yes Status: Acute Plan to address problem: Keppra bid, continue current therapy, seizure precautions. (4) Nicotine dependence Current Visit: No Status: Acute Qualifiers: Nicotine product type: cigarettes Substance use status: in withdrawal Qualified Code(s): F17.213 - Nicotine dependence, cigarettes, with withdrawal Plan to address problem: Supportive care. smoking cessation counseling, (5) HTN (hypertension) Current Visit: No Status: Chronic Qualifiers: Hypertension type: essential hypertension Qualified Code(s): I10 - Essential (primary) hypertension Plan to address problem: Monitor BP q shift, continue medical management (6) Aphasia (7)Left hemoplegia (8)DVT prophylaxis Current Visit: Yes Status: Acute Plan to address problem: SCD to BLE while in bed (9) Advance care planning Current Visit: Yes Status: Acute Plan to address problem: Disease education conducted, prognosis discussed, patient is full code, care plan discussed, patient acknowledges understanding and agreement with care plan, +30 minutes. History Interval history: Patient seen and examined remains very lethargic but more awake today, Speech improving but swallowing still at risk of aspiration Hospitalist Physical - Physical exam Narrative exam: VITAL SIGNS: Reviewed. GENERAL: The patient appears normally developed, obese, lethargic chronically ill-appearing vital signs as documented. HEAD: No signs of head trauma. EYES: Pupils are equal. Extraocular motions intact. EARS: Hearing grossly intact. MOUTH: Oropharynx is normal, still with facial droop. NECK: No adenopathy, no JVD. CHEST: Chest with crackles breath sounds bilaterally. No wheezes, rales, or r honchi. CARDIAC: Regular rate and rhythm. S1 and S2, without murmurs, gallops, or rubs. VASCULAR: No Edema. Peripheral pulses normal and equal in all extremities. ABDOMEN: Soft, non tender and non distended. No rebound or guarding, and no masses palpated. Bowel Sounds normal. MUSCULOSKELETAL: Good range of motion of all major joints. Extremities without clubbing, cyanosis or edema. NEUROLOGIC EXAM: Lethargic and obtunded left-sided hemiparesis residual chronic. Mild right facial droop. Unchanged per staff. Speech gurgly. Follows commands. PSYCHIATRIC: Mood normal. SKIN: detail exam as documented in skin assessment - Constitutional Vitals: Temp Pulse Resp BP Pulse Ox 98.7 F 70 20 152/108 96 10/07/20 07:47 10/07/20 09:26 10/07/20 07:47 10/07/20 09:26 10/07/20 07:47 General appearance: Present: mild distress HEART Score - HEART Score Troponin: Troponin T < 0.010 ng/mL (0.00-0.029) 10/04/20 15:39 Results - Labs CBC & Chem 7: 10/04/20 15:39 10/06/20 15:59 Labs: Laboratory Last Values WBC 7.0 K/mm3 (4.5-11.0) 10/04/20 15:39 RBC 3.97 M/mm3 (3.65-5.03) 10/04/20 15:39 Hgb 12.4 gm/dl (11.8-15.2) 10/04/20 15:39 Hct 36.5 % (35.5-45.6) 10/04/20 15:39 MCV 92 fl (84-94) 10/04/20 15:39 MCH 31 pg (28-32) 10/04/20 15:39 MCHC 34 % (32-34) 10/04/20 15:39 RDW 14.7 % (13.2-15.2) 10/04/20 15:39 Plt Count 176 K/mm3 (140-440) 10/04/20 15:39 Lymph % (Auto) 18.6 % (13.4-35.0) 10/04/20 15:39 [place] % (Auto) 10.7 % (0.0-7.3) H 10/04/20 15:39 Eos % (Auto) 6.6 % (0.0-4.3) H 10/04/20 15:39 Baso % (Auto) 0.7 % (0.0-1.8) 10/04/20 15:39 Lymph # (Auto) 1.3 K/mm3 (1.2-5.4) 10/04/20 15:39 [place] # (Auto) 0.7 K/mm3 (0.0-0.8) 10/04/20 15:39 Eos # (Auto) 0.5 K/mm3 (0.0-0.4) H 10/04/20 15:39 Baso # (Auto) 0.1 K/mm3 (0.0-0.1) 10/04/20 15:39 Seg Neutrophils % 63.4 % (40.0-70.0) 10/04/20 15:39 Seg Neutrophils # 4.4 K/mm3 (1.8-7.7) 10/04/20 15:39 PT 13.5 Sec. (12.2-14.9) 10/04/20 15:39 INR 1.01 (0.87-1.13) 10/04/20 15:39 APTT 29.2 Sec. (24.2-36.6) 10/04/20 15:39 Thrombin Time 15.2 Sec. (15.1-19.6) 10/04/20 15:39 Sodium 144 mmol/L (137-145) 10/06/20 15:59 Potassium 3.7 mmol/L (3.6-5.0) 10/06/20 15:59 Chloride 107.9 mmol/L (98-107) H 10/06/20 15:59 Carbon Dioxide 25 mmol/L (22-30) 10/06/20 15:59 Anion Gap 15 mmol/L 10/06/20 15:59 BUN 20 mg/dL (9-20) 10/06/20 15:59 Creatinine 2.2 mg/dL (0.8-1.3) H 10/06/20 15:59 Estimated GFR 37 ml/min 10/06/20 15:59 BUN/Creatinine Ratio 9 % 10/06/20 15:59 Glucose 82 mg/dL (75-100) 10/06/20 15:59 POC Glucose 98 mg/dL (70-105) 10/07/20 06:34 Calcium 9.5 mg/dL (8.4-10.2) 10/06/20 15:59 Troponin T < 0.010 ng/mL (0.00-0.029) 10/04/20 15:39 Triglycerides 51 mg/dL (2-149) 10/05/20 09:46 Cholesterol 115 mg/dL (50-199) 10/05/20 09:46 LDL Cholesterol Direct 56 mg/dL (50-130) 10/05/20 09:46 HDL Cholesterol 53 mg/dL (40-59) 10/05/20 09:46 Cholesterol/HDL Ratio 2.16 % 10/05/20 09:46 Fontana/IV: Voiding Method Condom Catheter IV Catheter Type [Right Hand] Peripheral IV Active Medications - Current Medications Current Medications: Generic Name Dose Route Start Last Admin Trade Name Freq PRN Reason Stop Dose Admin Acetaminophen 650 mg 10/04/20 18:06 Tylenol PO Q4H PRN Pain, Mild (1-3) Amlodipine Besylate 10 mg 10/05/20 10:00 10/07/20 09:25 Amlodipine PO 10 mg QDAY OSEI Administration Lipase/Protease/Amylase 1 each 10/06/20 16:00 Pancreblaire Nogueira 10,500 Unit FEEDTUBE PRN PRN For Clogged Feeding Tube Aspirin 81 mg 10/06/20 13:00 10/06/20 16:47 Baby Aspirin PO 81 mg QDAY OSEI Administration Atorvastatin Calcium 80 mg 10/04/20 22:00 10/07/20 01:20 Lipitor PO 80 mg QHS OSEI Administration Bicalutamide 50 mg 10/05/20 10:00 10/07/20 10:28 Casodex PO 50 mg DAILY OSEI Administration Bisacodyl 10 mg 10/04/20 18:06 Dulcolax [place] QDAY PRN Constipation Carvedilol 6.25 mg 10/04/20 22:00 10/07/20 09:26 Coreg PO 6.25 mg BID OSEI Administration Clonidine HCl 0.1 mg 10/04/20 22:00 10/07/20 05:29 Catapres PO 0.1 mg Q8HR OSEI Administration Clopidogrel Bisulfate 75 mg 10/05/20 10:00 10/07/20 09:27 Plavix PO 75 mg QDAY [facility] Administration Hydralazine HCl 50 mg 10/04/20 22:00 10/07/20 05:29 Apresoline PO 50 mg Q8HR OSEI Administration Levetiracetam 500 mg/ Dextrose 105 mls @ 400 mls/hr 10/05/20 23:00 10/07/20 09:24 IV 400 mls/hr Q12HR OSEI Administration Labetalol HCl 10 mg 10/05/20 22:20 Labetalol IV Q6HR PRN Blood Pressure Magnesium Hydroxide 30 ml 10/04/20 18:06 Milk Of Magnesia PO Q4H PRN Constipation Metoclopramide HCl 10 mg 10/04/20 18:06 10/04/20 20:39 Reglan PO 10 mg Q6H PRN Administration Nausea And Vomiting Miscellaneous Medication 72 mcg 10/05/20 10:00 Linaclotide [Linzess] PO DAILY [facility] Ondansetron HCl 4 mg 10/04/20 18:06 Zofran IV Q8H PRN Nausea And Vomiting Promethazine HCl 25 mg 10/04/20 18:06 Phenergan [place] Q6H PRN Nausea And Vomiting Simple Syrup 15 ml 10/06/20 16:00 Simple Syrup FEEDTUBE PRN PRN Hypoglycemia Simple Syrup 30 ml 10/06/20 16:00 Simple Syrup FEEDTUBE PRN PRN Hypoglycemia Sodium Bicarbonate 650 mg 10/05/20 10:00 10/07/20 09:25 Sodium Bicarbonate PO 650 mg DAILY OSEI Administration Sodium Bicarbonate 325 mg 10/06/20 16:00 Sodium Bicarbonate FEEDTUBE PRN PRN For Clogged Feeding Tube Sodium Chloride 10 ml 10/04/20 18:06 Sodium Chloride Flush Syringe 10 Ml IV PRN PRN LINE FLUSH Nutrition/Malnutrition Assess - Dietary Evaluation Nutrition/Malnutrition Findings: Nutrition Notes Start: 10/06/20 15:15 Freq: Status: Active Protocol: Document 10/06/20 15:15 (Rec: 10/06/20 15:28 ANNA MARIE [id number]) Nutrition Notes Need for Assessment generated from: MD Order Initial or Follow up Assessment Current Diagnosis CKD(stage I-IV),Hypertension, Stroke Other Pertinent Diagnosis seizure disorder Current Diet No diet Labs/Tests Reviewed Pertinent Medications Reviewed Height 6 ft 1 in Weight 115.6 kg [place] Body Weight (kg) 83.63 BMI 33.6 Weight Status Obese Subjective/Other Information MD order for TF. PERCUSSION INSTRUCTOR recommends NPO until MBS in 48 hours. Pt has history of multiple strokes. Burn Absent Trauma Absent GI Symptoms None Difficulty In Swallowing Current % PO Negligible Minimum of two criteria No #1 Nutrition Diagnosis Inadequate oral intake Etiology multiple CVA's As Evidenced by Signs and Symptoms pt NPO, swallowing difficulty Is patient on ventilator? No Is Patient Ambulatory and/or Out of Bed No REE-([facility]-confined to bed) 2422.320 Kcal/Kg value to use for calculation 18 Approximate Energy Requirements Using 1 kcal/Kg Calculation Used for Recommendations Kcal/kg Additional Notes Pro: 60-81g (0.6-0.8 g/kg AdjBW 101kg) Fluid:1 ml/kcal or per MD Nutrition Intervention Change Diet Order: TF Nutrition Support: Osmolite 1.5 at 55 ml/hr Flush 175 ml q4h Kcal 1,980 Protein (gm) 83 Fluid (mL) 1,006 Goal #1 Start/tolerate TF Goal #2 Meet at least 75% of protein and energy needs via TF Anticipated Discharge Needs: Unable to determine at this time Follow-Up By: 10/08/20 Additional Comments FU for TF start/tolerance
--- NOTE | 2020-10-07 15:47 | Magnetic Resonance Report ---
MRI BRAIN WITHOUT CONTRAST INDICATION / CLINICAL INFORMATION: MAIN. Stroke TECHNIQUE: Multisequence, multiplanar images were obtained. COMPARISON: 08/04/2020 FINDINGS: Comment: Many of the sequences are limited secondary to patient motion. CEREBRAL and CEREBELLAR HEMISPHERES: A moderate to large area of diffusion restriction has developed in the posterior right frontal lobe, anterior right parietal lobe and superior right temporal lobe me asuring up to 7.0 x 3.5 cm in axial plane. There is mild edema in these areas on the T2 images but no evidence for hemorrhage, mass, mass effect or extra-axial fluid collection. No midline shift. Chroni c cortical infarcts throughout the right anterior and posterior watershed regions are noted and have evolved since 08/04/2020 MRI. Moderate diffuse volume loss and chronic white matter changes are stable. VENTRICLES: Normal in size and configuration for age. VISUALIZED ORBITS: No significant abnormality. VISUALIZED PARANASAL SINUSES: No significant abnormality. ADDITIONAL FINDINGS: None. IMPRESSION: Acute to subacute ischemia is identified in the right MCA distribution as outlined above. No evidence for hemorrhage or mass effect. Chronic cortical infarcts in the right anterior and posterior watershed regions. Mild volume loss and chronic microangiopathy in the white matter, stable. Signer Name: Pérez Contreras Jr, MD Signed: 10/07/2020 3:43 PM Workstation Name: [id number]
[2020-10-07] MEDS: levETIRAcetam 500 MG/5 ML ORAL LIQD PO SCH (21:37)
[2020-10-08] MEDS: cloNIDine 0.1 MG TAB PO SCH ×3 (06:29→22:17)
[2020-10-08] MEDS: hydrALAZINE 25 MG TAB PO SCH ×3 (06:29→22:16)
--- NOTE | 2020-10-08 06:32 | Progress Note ---
Assessment and Plan Assessment and plan: 60 YO Male with HTN, CVA LHP on DAPT, Nicotine Dependence, CKD, Seizure Disorder not currently taking AED, presents to ED for evaluation. Patient states that he was in his usual state of health at bedtime which was around 2200 hrs. overnight. Patient states that he awoke from sleep around 0800 hrs. this morning and fell getting out of bed and could not get himself off of the floor. Patient daughter reports finding patient down on the floor, confused, and covered in urine. EMS was notified and upon arrival the patient was found to be in distress with a neurologic deficit. A code stroke was called and the patient was transported to [facility] for further care and evaluation of the aforementioned sym ptoms. Patient seen and evaluated in the emergency department. All lab and imaging studies reviewed. Patient was found to have clinical symptoms consistent with CVA and was initiated on stroke protocol in the emergency department. Teleneurology was consulted and the patient was deemed not a cand idate for TPA. Patient placed in observation status and initiated on stroke protocol. Patient denies fever, chills, chest pain, palpitations, productive cough, skin rash, recent ill contacts, or known exposure to COVID-19. Prior admission on 08/04/2020 reviewed. All medication listed at time of admission have been reconciled. Advanced care planning conducted in ED. 10/05: Patient remains very lethargic awaiting neurology work-up. No new findings of neurologic dysfunction was noted. Left-sided weakness is residual from prior. Reevaluate speech swallow when more awake. 10/06: Neurology input noted appears that the patient fell while trying to put his shoes on. Home health will be required at discharge probably with 24-hour aide or patient may need to be placed will consult case management. Continue antiplatelets and statin therapy at this time. No indication for MRI. As patient had a recent MRI study. We will also transferred to the medical floor 10/07: Speech re-eval, pt for placement assessment. Spoke to the daughter today who will like placement and also gave me more information that the patient 5 days prior to presentation had facial droop and was getting weaker. Will proceed with MRI study considering the delay in returning to baseline and with this new information. Also patients daughter due to work will not be able to provided 24 hr care at this time which is what this patient needs. Aspiration precautions. for now tolerating tube feed 11/13: MRI shows acute CVA. increase asa to 325mg. reconsult Neurology, check mra head and neck will start diet based on this recommendation anticipate possible discharge of The head of the bed up and discussed with nursing staff to continue the same. Modified Barium Swallow study was conducted this date. Patient demonstrates an oral/pharyngeal phase dysphagia characterized by reduced bolus movement, premature spillage into the valleculae, delayed swallow reflex and aspiration with thins. Bolus holding was noted with cueing to swallow. No evidence of aspiration was identified with pureed nor nectar thickened liquids, however, the patient must be monitored closely to ensure that he swallows prior to giving him additional boluses. Recommend a pureed diet with nectar thickened liquids. No straws should be used. Patient must be sitting upright and given time to swallow prior to additional bites. Medications should be crushed and placed in applesauce. Will continue to focus upon dysphagia intervention to aid the patient in improving oral musculature/ laryngeal skills. (1) CVA (cerebral vascular accident) Current Visit: Yes Status: Acute Plan to address problem: CVA protocol, CT head, Neuro check, DAPT, Lipid panel, Teleneurology consulted, PT consulted, OT consulted, Speech therapy consulted, Echocardiogram, Carotid doppler. (2) Chronic kidney disease (CKD) Current Visit: Yes Status: Acute Qualifiers: Chronic kidney disease stage: stage 2 (mild) Qualified Code(s): N18.2 - Ch ronic kidney disease, stage 2 (mild) Plan to address problem: IVF resuscitation, supportive care. at baseline (3) Seizure disorder Current Visit: Yes Status: Acute Plan to address problem: Keppra bid, continue current therapy, seizure precautions. (4) Nicotine dependence Current Visit: No Status: Acute Qualifiers: Nicotine product type: cigarettes Substance use status: in withdrawal Qualified Code(s): F17.213 - Nicotine dependence, cigarettes, with withdrawal Plan to address problem: Supportive care. smoking cessation counseling, (5) HTN (hypertension) Current Visit: No Status: Chronic Qualifiers: Hypertension type: essential hypertension Qualified Code(s): I10 - Essential (primary) hypertension Plan to address problem: Monitor BP q shift, continue medical management (6) Aphasia (7)Left hemoplegia (8)DVT prophylaxis Current Visit: Yes Status: Acute Plan to address problem: SCD to BLE while in bed (9) Advance care planning Current Visit: Yes Status: Acute Plan to address problem: Disease education conducted, prognosis discussed, patient is full code, care plan discussed, patient acknowledges understanding and agreement with care plan, +30 minutes. History Interval history: Patient seen and examined remains very lethargic but more awake today, modified barium swallow test was done today and patient was approved for pured diet nectar thick. Hospitalist Physical - Physical exam Narrative exam: VITAL SIGNS: Reviewed. GENERAL: The patient appears normally developed, obese, lethargic left-sided facial droop chronically ill-appearing vital signs as documented. HEAD: No signs of head trauma. EYES: Pupils are equal. Extraocular motions intact. EARS: Hearing grossly intact. MOUTH: Oropharynx is normal, still with facial droop. NECK: No adenopathy, no JVD. CHEST: Chest with crackles breath sounds bilaterally. No wheezes, rales, or rhonchi. CARDIAC: Regular rate and rhythm. S1 and S2, without murmurs, gallops, or rubs. VASCULAR: No Edema. Peripheral pulses normal and equal in all extremities. ABDOMEN: Soft, non tender and non distended. No rebound or guarding, and no masses palpated. Bowel Sounds normal. MUSCULOSKELETAL: Good range of motion of all major joints. Extremities without clubbing, cyanosis or edema. NEUROLOGIC EXAM: Lethargic and obtunded left-sided hemiparesis residual chronic. Mild left facial droop. Unchanged per staff. Speech gurgle. Follows co mmands. PSYCHIATRIC: Mood normal. SKIN: detail exam as documented in skin assessment - Constitutional Vitals: Temp Pulse Resp BP Pulse Ox 98.0 F 68 18 137/67 100 10/08/20 04:00 10/08/20 06:29 10/08/20 04:00 10/08/20 06:29 10/08/20 04:00 General appearance: Present: mild distress HEART Score - HEART Score Troponin: Troponin T < 0.010 ng/mL (0.00-0.029) 10/04/20 15:39 Results - Labs CBC & Chem 7: 10/04/20 15:39 10/06/20 15:59 Labs: Laboratory Last Values WBC 7.0 K/mm3 (4.5-11.0) 10/04/20 15:39 RBC 3.97 M/mm3 (3.65-5.03) 10/04/20 15:39 Hgb 12.4 gm/dl (11.8-15.2) 10/04/20 15:39 Hct 36.5 % (35.5-45.6) 10/04/20 15:39 MCV 92 fl (84-94) 10/04/20 15:39 MCH 31 pg (28-32) 10/04/20 15:39 MCHC 34 % (32-34) 10/04/20 15:39 RDW 14.7 % (13.2-15.2) 10/04/20 15:39 Plt Count 176 K/mm3 (140-440) 10/04/20 15:39 Lymph % (Auto) 18.6 % (13.4-35.0) 10/04/20 15:39 Jennings % (Auto) 10.7 % (0.0-7.3) H 10/04/20 15:39 Eos % (Auto) 6.6 % (0.0-4.3) H 10/04/20 15:39 Baso % (Auto) 0.7 % (0.0-1.8) 10/04/20 15:39 Lymph # (Auto) 1.3 K/mm3 (1.2-5.4) 10/04/20 15:39 Jennings # (Auto) 0.7 K/mm3 (0.0-0.8) 10/04/20 15:39 Eos # (Auto) 0.5 K/mm3 (0.0-0.4) H 10/04/20 15:39 Baso # (Auto) 0.1 K/mm3 (0.0-0.1) 10/04/20 15:39 Seg Neutrophils % 63.4 % (40.0-70.0) 10/04/20 15:39 Seg Neutrophils # 4.4 K/mm3 (1.8-7.7) 10/04/20 15:39 PT 13.5 Sec. (12.2-14.9) 10/04/20 15:39 INR 1.01 (0.87-1.13) 10/04/20 15:39 APTT 29.2 Sec. (24.2-36.6) 10/04/20 15:39 Thrombin Time 15.2 Sec. (15.1-19.6) 10/04/20 15:39 Sodium 144 mmol/L (137-145) 10/06/20 15:59 Potassium 3.7 mmol/L (3.6-5.0) 10/06/20 15:59 Chloride 107.9 mmol/L (98-107) H 10/06/20 15:59 Carbon Dioxide 25 mmol/L (22-30) 10/06/20 15:59 Anion Gap 15 mmol/L 10/06/20 15:59 BUN 20 mg/dL (9-20) 10/06/20 15:59 Creatinine 2.2 mg/dL (0.8-1.3) H 10/06/20 15:59 Estimated GFR 37 ml/min 10/06/20 15:59 BUN/Creatinine Ratio 9 % 10/06/20 15:59 Glucose 82 mg/dL (75-100) 10/06/20 15:59 POC Glucose 116 mg/dL (70-105) H 10/07/20 17:21 Calcium 9.5 mg/dL (8.4-10.2) 10/06/20 15:59 Troponin T < 0.010 ng/mL (0.00-0.029) 10/04/20 15:39 Triglycerides 51 mg/dL (2-149) 10/05/20 09:46 Cholesterol 115 mg/dL (50-199) 10/05/20 09:46 LDL Cholesterol Direct 56 mg/dL (50-130) 10/05/20 09:46 HDL Cholesterol 53 mg/dL (40-59) 10/05/20 09:46 Cholesterol/HDL Ratio 2.16 % 10/05/20 09:46 Fontana/IV: Voiding Method Condom Catheter IV Catheter Type [Right Hand] Peripheral IV Active Medications - Current Medications Current Medications: Generic Name Dose Route Start Last Admin Trade Name Freq PRN Reason Stop Dose Admin Acetaminophen 650 mg 10/04/20 18:06 Tylenol PO Q4H PRN Pain, Mild (1-3) Amlodipine Besylate 10 mg 10/05/20 10:00 10/07/20 09:25 Amlodipine PO 10 mg QDAY OSEI Administration Lipase/Protease/Amylase 1 each 10/06/20 16:00 Pancreazjayro Nogueira 10,500 Unit FEEDTUBE PRN PRN For Clogged Feeding Tube Aspirin 325 mg 10/08/20 10:00 Aspirin PO QDAY [facility] Atorvastatin Calcium 80 mg 10/04/20 22:00 10/07/20 21:36 Lipitor PO 80 mg QHS [facility] Administration Bicalutamide 50 mg 10/05/20 10:00 10/07/20 10:28 Casodex PO 50 mg DAILY [facility] Administration Bisacodyl 10 mg 10/04/20 18:06 Dulcolax [place] QDAY PRN Constipation Carvedilol 6.25 mg 10/04/20 22:00 10/07/20 21:37 Coreg PO 6.25 mg BID [facility] Administration Clonidine HCl 0.1 mg 10/04/20 22:00 10/08/20 06:29 Catapres PO 0.1 mg Q8HR [facility] Administration Clopidogrel Bisulfate 75 mg 10/05/20 10:00 10/07/20 09:27 Plavix PO 75 mg QDAY [facility] Administration Hydralazine HCl 50 mg 10/04/20 22:00 10/08/20 06:29 Apresoline PO 50 mg Q8HR [facility] Administration Labetalol HCl 10 mg 10/05/20 22:20 Labetalol IV Q6HR PRN Blood Pressure Levetiracetam 500 mg 10/07/20 22:00 10/07/20 21:37 Keppra PO 500 mg BID [facility] Administration Magnesium Hydroxide 30 ml 10/04/20 18:06 Milk Of Magnesia PO Q4H PRN Constipation Metoclopramide HCl 10 mg 10/04/20 18:06 10/04/20 20:39 Reglan PO 10 mg Q6H PRN Administration Nausea And Vomiting Miscellaneous Medication 72 mcg 10/05/20 10:00 Linaclotide [Linzess] PO DAILY [facility] Ondansetron HCl 4 mg 10/04/20 18:06 Zofran IV Q8H PRN Nausea And Vomiting Promethazine HCl 25 mg 10/04/20 18:06 Phenergan [place] Q6H PRN Nausea And Vomiting Simple Syrup 15 ml 10/06/20 16:00 Simple Syrup FEEDTUBE PRN PRN Hypoglycemia Simple Syrup 30 ml 10/06/20 16:00 Simple Syrup FEEDTUBE PRN PRN Hypoglycemia Sodium Bicarbonate 650 mg 10/05/20 10:00 10/07/20 09:25 Sodium Bicarbonate PO 650 mg DAILY OSEI Administration Sodium Bicarbonate 325 mg 10/06/20 16:00 Sodium Bicarbonate FEEDTUBE PRN PRN For Clogged Feeding Tube Sodium Chloride 10 ml 10/04/20 18:06 Sodium Chloride Flush Syringe 10 Ml IV PRN PRN LINE FLUSH Nutrition/Malnutrition Assess - Dietary Evaluation Nutrition/Malnutrition Findings: Nutrition Notes Start: 10/06/20 15:15 Freq: Status: Active Protocol: Document 10/06/20 15:15 (Rec: 10/06/20 15:28 [email or web address]) Nutrition Notes Need for Assessment generated from: MD Order Initial or Follow up Assessment Current Diagnosis CKD(stage I-IV),Hypertension, Stroke Other Pertinent Diagnosis seizure disorder Current Diet No diet Labs/Tests Reviewed Pertinent Medications Reviewed Height 6 ft 1 in Weight 115.6 kg [place] Body Weight (kg) 83.63 BMI 33.6 Weight Status Obese Subjective/Other Information MD order for TF. WREATH MAKER recommends NPO until MBS in 48 hours. Pt has history of multiple strokes. Burn Absent Trauma Absent GI Symptoms None Difficulty In Swallowing Current % PO Negligible Minimum of two criteria No #1 Nutrition Diagnosis Inadequate oral intake Etiology multiple CVA's As Evidenced by Signs and Symptoms pt NPO, swallowing difficulty Is patient on ventilator? No Is Patient Ambulatory and/or Out of Bed No REE-([facility]-confined to bed) 2422.320 Kcal/Kg value to use for calculation 18 Approximate Energy Requirements Using 2081 kcal/Kg Calculation Used for Recommendations Kcal/kg Additional Notes Pro: 60-81g (0.6-0.8 g/kg AdjBW 101kg) Fluid:1 ml/kcal or per MD Nutrition Intervention Change Diet Order: TF Nutrition Support: Osmolite 1.5 at 55 ml/hr Flush 175 ml q4h Kcal 1,980 Protein (gm) 83 Fluid (mL) 1,006 Goal #1 Start/tolerate TF Goal #2 Meet at least 75% of protein and energy needs via TF Anticipated Discharge Needs: Unable to determine at this time Follow-Up By: 10/08/20 Additional Comments FU for TF start/tolerance
--- NOTE | 2020-10-08 10:37 | Magnetic Resonance Report ---
MR MRA/MRV head wo con INDICATION / CLINICAL INFORMATION: 60 years Male; MAIN. TECHNIQUE: 3-D time of flight. NASCET type criteria used to evaluate stenoses. Significant motion ar tifact COMPARISON: 08/05/2020 FINDINGS: INTERNAL CAROTID ARTERIES: Focal areas of narrowing are suggested at the junction of the communicatin g and cavernous portions of both internal carotid arteries - right more prominent than left.-Similar findings seen on prior. VERTEBROBASILAR SYSTEM: The dominant right vertebral artery noted with focal stenosis seen near the f oramen magnum region. Focal area of mild narrowing seen in the proximal basilar artery. Similar findi ngs seen on prior. DISTAL BRANCHES: Distal left MCA branches are better visualized than the right, which may be related to artifact. Moderate length areas of narrowing are suggested in the mid M1 segment on the left and d istal M1 segment on the right. Similar type findings seen on prior. Mild to moderate narrowing seen near the origin of both anterior cerebral arteries-A1 segments. Focal areas of narrowing are seen in the distal anterior cerebral arteries bilaterally, where the ves radha passes around the genu of the corpus callosum. Focal areas of narrowing are also seen in the posterior cerebral arteries. The right posterior cerebr al artery has a origin-P1 segment on the right is hypoplastic. ANEURYSM: None identified. IMPRESSION: Multiple areas of significant narrowing as described above. Similar type findings are seen on prior. Signer Name: Sven Barnes MD, III Signed: 10/08/2020 10:32 AM Workstation Name: [email or web address]
--- NOTE | 2020-10-08 12:10 | Fluoroscopy Report ---
MODIFIED BARIUM SWALLOW INDICATION: ASPIRATION TECHNIQUE: Swallowing was evaluated in the lateral position under direct fluoroscopy. FINDINGS: The patient was evaluated with thin liquids, nectar and puree consistencies. Premature spillage and swallow reflex delay was witnessed with all 3 consistencies. Nonsilent aspirat ion was witnessed with thin liquids. No penetration or aspiration was witnessed with nectar or puree consistency. IMPRESSION: Aspiration with thin liquids. Premature spillage and swallowing reflex delayed with all 3 consistencies. Please correlate with the formal report from speech pathology. Fluoroscopic time: 2.4 minutes Number of fluoroscopic images: 2 Signer Name: Pérez Contreras Jr, MD Signed: 10/08/2020 12:06 PM Workstation Name: [id number]
[2020-10-08] MEDS: ASPIRIN 325 MG TAB PO SCH (13:16)
[2020-10-08] MEDS: BICALUTAMIDE 50 MG TAB PO SCH (13:16)
[2020-10-08] MEDS: SODIUM BICARBONATE 650 MG TAB PO SCH (13:16)
[2020-10-08] MEDS: CLOPIDOGREL 75 MG TAB PO SCH (13:16)
[2020-10-08] MEDS: amLODIPine 10 MG TAB PO SCH (13:17)
[2020-10-08] MEDS: levETIRAcetam 500 MG/5 ML ORAL LIQD PO SCH ×2 (13:17→22:16)
[2020-10-08] MEDS: carvediloL 6.25 MG TAB PO SCH ×2 (13:17→22:16)
--- NOTE | 2020-10-08 19:28 | Progress Note ---
Assessment and Plan 60 yo male with ischemic stroke w/ residual left hemiparesis w/ dysarthria, htn, renal failure, seizure d/o (w/ dialysis only; few years ago), presents where he slipped off the bed while trying to change his clothes. However, new history provided by daughter notes onset of worsening left-sided droop and left-sided weakness prior to the fall. 1. Acute/Subacute Ischemic Stroke - secondary to intracranial atherorsclerotic disease; recommend Aspirin 325 mg PO qday; statin therapy for a goal LDL of 70; add Plavix 75 mg PO qday for 21 days only (if no contraindications); pt/ot/st/swallow evaluation/monitoring; confirm baseline ekg/cxr; confirm baseline ldl/tsh-t4. 2. HTN - normotension in the setting of a subacute stroke. 3. Seizure d/o - remote hx and no indication of an ictal event based on clinical history. 4. Recommend a home health aide, if possible, since daughter states that she got a job recently and will not be available to be at home 24 hours anymore. This incident stemmed from the attempt of the patient to dress/undress himself and leading to a fall, again emphasizing the need for assistance. 5. Followup with Stroke Neurology in 4-6 weeks. Neurology will signoff. Jose Winkler MD Neurology Subjective Date of service: 10/08/20 Principal diagnosis: Acute CVA Interval history: Patient's daughter clarified with the primary attending that the patient's symptoms started prior to the fall and therefore a MRI Brain was ordered by the primary team which revealed acute/subacute infarction involving the right cerebral hemisphere. Objective - Vital Sign Vital Signs - 12hr 10/08/20 10/08/20 10/08/20 07:28 11:55 13:17 Temperature 97.1 F L 99.1 F Pulse Rate 74 53 L 53 L Respiratory 18 18 Rate Blood Pressure 114/85 162/79 162/79 O2 Sat by Pulse 98 99 Oximetry 10/08/20 10/08/20 15:15 16:06 Temperature 97.7 F Pulse Rate 54 L 54 L Respiratory 20 Rate Blood Pressure 132/71 132/71 O2 Sat by Pulse 98 Oximetry - Laboratory Findings CBC and BMP: 10/04/20 15:39 10/06/20 15:59 Abnormal Lab Findings: Abnormal Labs 1110/04/20 10/05/20 15:39 15:39 00:58 Dickens % (Auto) 10.7 H Eos % (Auto) 6.6 H Eos # (Auto) 0.5 H Chloride BUN 28 H Creatinine 2.3 H POC Glucose 122 H 10/06/20 10/07/20 10/07/20 15:59 11:48 17:21 Dickens % (Auto) Eos % (Auto) Eos # (Auto) Chloride 107.9 H BUN Creatinine 2.2 H POC Glucose 116 H 116 H 10/08/20 10/08/20 12:10 16:07 Dickens % (Auto) Eos % (Auto) Eos # (Auto) Chloride BUN Creatinine POC Glucose 108 H 106 H
[2020-10-09] MEDS: cloNIDine 0.1 MG TAB PO SCH ×3 (05:37→22:35)
[2020-10-09] MEDS: hydrALAZINE 25 MG TAB PO SCH ×3 (05:38→22:36)
[2020-10-09] MEDS: carvediloL 6.25 MG TAB PO SCH ×2 (11:07→22:36)
[2020-10-09] MEDS: amLODIPine 10 MG TAB PO SCH (11:07)
[2020-10-09] MEDS: ASPIRIN 325 MG TAB PO SCH (11:07)
[2020-10-09] MEDS: SODIUM BICARBONATE 650 MG TAB PO SCH (11:07)
[2020-10-09] MEDS: levETIRAcetam 500 MG/5 ML ORAL LIQD PO SCH ×2 (11:08→22:35)
[2020-10-09] MEDS: CLOPIDOGREL 75 MG TAB PO SCH (11:08)
[2020-10-09] MEDS: BICALUTAMIDE 50 MG TAB PO SCH (11:09)
--- NOTE | 2020-10-09 12:59 | Progress Note ---
Assessment and Plan Assessment and plan: 60 YO Male with HTN, CVA LHP on DAPT, Nicotine Dependence, CKD, Seizure Disorder not currently taking AED, presents to ED for evaluation. Patient states that he was in his usual state of health at bedtime which was around 2200 hrs. overnight. Patient states that he awoke from sleep around 0800 hrs. this morning and fell getting out of bed and could not get himself off of the floor. Patient daughter reports finding patient down on the floor, confused, and covered in urine. EMS was notified and upon arrival the patient was found to be in distress with a neurologic deficit. A code stroke was called and the patient was transported to [facility] for further care and evaluation of the aforementioned sym ptoms. Patient seen and evaluated in the emergency department. All lab and imaging studies reviewed. Patient was found to have clinical symptoms consistent with CVA and was initiated on stroke protocol in the emergency department. Teleneurology was consulted and the patient was deemed not a cand idate for TPA. Patient placed in observation status and initiated on stroke protocol. Patient denies fever, chills, chest pain, palpitations, productive cough, skin rash, recent ill contacts, or known exposure to COVID-19. Prior admission on 08/04/2020 reviewed. All medication listed at time of admission have been reconciled. Advanced care planning conducted in ED. 10/05: Patient remains very lethargic awaiting neurology work-up. No new findings of neurologic dysfunction was noted. Left-sided weakness is residual from prior. Reevaluate speech swallow when more awake. 10/06: Neurology input noted appears that the patient fell while trying to put his shoes on. Home health will be required at discharge probably with 24-hour aide or patient may need to be placed will consult case management. Continue antiplatelets and statin therapy at this time. No indication for MRI. As patient had a recent MRI study. We will also transferred to the medical floor 10/07: Speech re-eval, pt for placement assessment. Spoke to the daughter today who will like placement and also gave me more information that the patient 5 days prior to presentation had facial droop and was getting weaker. Will proceed with MRI study considering the delay in returning to baseline and with this new information. Also patients daughter due to work will not be able to provided 24 hr care at this time which is what this patient needs. Aspiration precautions. for now tolerating tube feed 11/13: MRI shows acute CVA. increase asa to 325mg. reconsult Neurology, check mra head and neck will start diet based on this recommendation anticipate possible discharge of The head of the bed up and discussed with nursing staff to continue the same. Modified Barium Swallow study was conducted this date. Patient demonstrates an oral/pharyngeal phase dysphagia characterized by reduced bolus movement, premature spillage into the valleculae, delayed swallow reflex and aspiration with thins. Bolus holding was noted with cueing to swallow. No evidence of aspiration was identified with pureed nor nectar thickened liquids, however, the patient must be monitored closely to ensure that he swallows prior to giving him additional boluses. Recommend a pureed diet with nectar thickened liquids. No straws should be used. Patient must be sitting upright and given time to swallow prior to additional bites. Medications should be crushed and placed in applesauce. Will continue to focus upon dysphagia intervention to aid the patient in improving oral musculature/ laryngeal skills. 10/09: Aspiration concerns, will obtain GI re-evluation for possible PEG as an alternative source of eating while the patient continues to improve. Keep HOB >45deg. (1) CVA (cerebral vascular accident) Current Visit: Yes Status: Acute Plan to address problem: CVA protocol, CT head, Neuro check, DAPT, Lipid panel, Teleneurology consulted, PT consulted, OT consulted, Speech therapy consulted, Echocardiogram, Carotid doppler. (2) Chronic kidney disease (CKD) Current Visit: Yes Status: Acute Qualifiers: Chronic kidney disease stage: stage 2 (mild) Qualified Code(s): N18.2 - Chronic kidney disease, stage 2 (mild) Plan to address problem: IVF resuscitation, supportive care. at baseline (3) Seizure disorder Current Visit: Yes Status: Acute Plan to address problem: Keppra bid, continue current therapy, seizure precautions. (4) Nicotine dependence Current Visit: No Status: Acute Qualifiers: Nicotine product type: cigarettes Substance use status: in withdrawal Qualified Code(s): F17.213 - Nicotine dependence, cigarettes, with withdrawal Plan to address problem: Supportive care. smoking cessation counseling, (5) HTN (hypertension) Current Visit: No Status: Chronic Qualifiers: Hypertension type: essential hypertension Qualified Code(s): I10 - Essential (primary) hypertension Plan to address problem: Monitor BP q shift, continue medical management (6) Aphasia (7)Left hemoplegia (8)DVT prophylaxis Current Visit: Yes Status: Acute Plan to address problem: SCD to BLE while in bed (9) Advance care planning Current Visit: Yes Status: Acute Plan to address problem: Disease education conducted, prognosis discussed, patient is full code, care plan discussed, patient acknowledges understanding and agreement with care plan, +30 minutes. History Interval history: Patient seen and examined remains very lethargic but more awake today, despite modified barium swallow test done. [place] thick diet patient experienced some coughing spell this morning. Will discuss with GI Hospitalist Physical - Physical exam Narrative exam: VITAL SIGNS: Reviewed. GENERAL: The patient appears normally developed, obese, lethargic but awake left-sided facial droop chronically ill-appearing vital signs as documented. HEAD: No signs of head trauma. EYES: Pupils are equal. Extraocular motions intact. EARS: Hearing grossly intact. MOUTH: Oropharynx is normal, still with facial droop. NECK: No adenopathy, no JVD. CHEST: Chest with crackles breath sounds bilaterally. No wheezes, rales, or rhonchi. CARDIAC: Regular rate and rhythm. S1 and S2, without murmurs, gallops, or rubs. VASCULAR: No Edema. Peripheral pulses normal and equal in all extremities. ABDOMEN: Soft, non tender and non distended. No rebound or guarding, and no masses palpated. Bowel Sounds normal. MUSCULOSKELETAL: Good range of motion of all major joints. Extremities without clubbing, cyanosis or edema. NEUROLOGIC EXAM: Lethargic and obtunded left-sided hemiparesis residual chronic. Mild left facial droop. Unchanged per staff. Speech gurgle. Follows commands. PSYCHIATRIC: Mood normal. SKIN: detail exam as documented in skin assessment - Constitutional Vitals: Temp Pulse Resp BP Pulse Ox 98.0 F 69 18 107/69 98 10/09/20 04:25 10/09/20 10:00 10/09/20 04:25 10/09/20 05:38 10/09/20 04:25 General appearance: Present: mild distress HEART Score - HEART Score Troponin: Troponin T < 0.010 ng/mL (0.00-0.029) 10/04/20 15:39 Results - Labs CBC & Chem 7: 10/04/20 15:39 10/06/20 15:59 Labs: Laboratory Last Values WBC 7.0 K/mm3 (4.5-11.0) 10/04/20 15:39 RBC 3.97 M/mm3 (3.65-5.03) 10/04/20 15:39 Hgb 12.4 gm/dl (11.8-15.2) 10/04/20 15:39 Hct 36.5 % (35.5-45.6) 10/04/20 15:39 MCV 92 fl (84-94) 10/04/20 15:39 MCH 31 pg (28-32) 10/04/20 15:39 MCHC 34 % (32-34) 10/04/20 15:39 RDW 14.7 % (13.2-15.2) 10/04/20 15:39 Plt Count 176 K/mm3 (140-440) 10/04/20 15:39 Lymph % (Auto) 18.6 % (13.4-35.0) 10/04/20 15:39 [place] % (Auto) 10.7 % (0.0-7.3) H 10/04/20 15:39 Eos % (Auto) 6.6 % (0.0-4.3) H 10/04/20 15:39 Baso % (Auto) 0.7 % (0.0-1.8) 10/04/20 15:39 Lymph # (Auto) 1.3 K/mm3 (1.2-5.4) 10/04/20 15:39 [place] # (Auto) 0.7 K/mm3 (0.0-0.8) 10/04/20 15:39 Eos # (Auto) 0.5 K/mm3 (0.0-0.4) H 10/04/20 15:39 Baso # (Auto) 0.1 K/mm3 (0.0-0.1) 10/04/20 15:39 Seg Neutrophils % 63.4 % (40.0-70.0) 10/04/20 15:39 Seg Neutrophils # 4.4 K/mm3 (1.8-7.7) 10/04/20 15:39 PT 13.5 Sec. (12.2-14.9) 10/04/20 15:39 INR 1.01 (0.87-1.13) 10/04/20 15:39 APTT 29.2 Sec. (24.2-36.6) 10/04/20 15:39 Thrombin Time 15.2 Sec. (15.1-19.6) 10/04/20 15:39 Sodium 144 mmol/L (137-145) 10/06/20 15:59 Potassium 3.7 mmol/L (3.6-5.0) 10/06/20 15:59 Chloride 107.9 mmol/L (98-107) H 10/06/20 15:59 Carbon Dioxide 25 mmol/L (22-30) 10/06/20 15:59 Anion Gap 15 mmol/L 10/06/20 15:59 BUN 20 mg/dL (9-20) 10/06/20 15:59 Creatinine 2.2 mg/dL (0.8-1.3) H 10/06/20 15:59 Estimated GFR 37 ml/min 10/06/20 15:59 BUN/Creatinine Ratio 9 % 10/06/20 15:59 Glucose 82 mg/dL (75-100) 10/06/20 15:59 POC Glucose 111 mg/dL (70-105) H 10/09/20 08:20 Calcium 9.5 mg/dL (8.4-10.2) 10/06/20 15:59 Troponin T < 0.010 ng/mL (0.00-0.029) 10/04/20 15:39 Triglycerides 51 mg/dL (2-149) 10/05/20 09:46 Cholesterol 115 mg/dL (50-199) 10/05/20 09:46 LDL Cholesterol Direct 56 mg/dL (50-130) 10/05/20 09:46 HDL Cholesterol 53 mg/dL (40-59) 10/05/20 09:46 Cholesterol/HDL Ratio 2.16 % 10/05/20 09:46 [place]/IV: Voiding Method Condom Catheter IV Catheter Type [Right Hand] Peripheral IV Active Medications - Current Medications Current Medications: Generic Name Dose Route Start Last Admin Trade Name Freq PRN Reason Stop Dose Admin Acetaminophen 650 mg 10/04/20 18:06 Tylenol PO Q4H PRN Pain, Mild (1-3) Amlodipine Besylate 10 mg 10/05/20 10:00 10/09/20 11:07 Amlodipine PO 10 mg QDAY OSEI Administration Lipase/Protease/Amylase 1 each 10/06/20 16:00 Josie Nogueira 10,500 Unit FEEDTUBE PRN PRN For Clogged Feeding Tube Aspirin 325 mg 10/08/20 10:00 10/09/20 11:07 Aspirin PO 325 mg QDAY [facility] Administration Atorvastatin Calcium 80 mg 10/04/20 22:00 10/08/20 22:17 Lipitor PO 80 mg QHS [facility] Administration Bicalutamide 50 mg 10/05/20 10:00 10/09/20 11:09 Casodex PO 50 mg DAILY [facility] Administration Bisacodyl 10 mg 10/04/20 18:06 Dulcolax [place] QDAY PRN Constipation Carvedilol 6.25 mg 10/04/20 22:00 10/09/20 11:07 Coreg PO 6.25 mg BID [facility] Administration Clonidine HCl 0.1 mg 10/04/20 22:00 10/09/20 05:37 Catapres PO 0.1 mg Q8HR [facility] Administration Clopidogrel Bisulfate 75 mg 10/05/20 10:00 10/09/20 11:08 Plavix PO 75 mg QDAY [facility] Administration Hydralazine HCl 50 mg 10/04/20 22:00 10/09/20 05:38 Apresoline PO 50 mg Q8HR [facility] Administration Labetalol HCl 10 mg 10/05/20 22:20 Labetalol IV Q6HR PRN Blood Pressure Levetiracetam 500 mg 10/07/20 22:00 10/09/20 11:08 Keppra PO 500 mg BID [facility] Administration Magnesium Hydroxide 30 ml 10/04/20 18:06 Milk Of Magnesia PO Q4H PRN Constipation Metoclopramide HCl 10 mg 10/04/20 18:06 10/04/20 20:39 Reglan PO 10 mg Q6H PRN Administration Nausea And Vomiting Miscellaneous Medication 72 mcg 10/05/20 10:00 Linaclotide [Linzess] PO DAILY [facility] Ondansetron HCl 4 mg 10/04/20 18:06 Zofran IV Q8H PRN Nausea And Vomiting Promethazine HCl 25 mg 10/04/20 18:06 Phenergan [place] Q6H PRN Nausea And Vomiting Simple Syrup 15 ml 10/06/20 16:00 Simple Syrup FEEDTUBE PRN PRN Hypoglycemia Simple Syrup 30 ml 10/06/20 16:00 Simple Syrup FEEDTUBE PRN PRN Hypoglycemia Sodium Bicarbonate 650 mg 10/05/20 10:00 10/09/20 11:07 Sodium Bicarbonate PO 650 mg DAILY OSEI Administration Sodium Bicarbonate 325 mg 10/06/20 16:00 Sodium Bicarbonate FEEDTUBE PRN PRN For Clogged Feeding Tube Sodium Chloride 10 ml 10/04/20 18:06 Sodium Chloride Flush Syringe 10 Ml IV PRN PRN LINE FLUSH Nutrition/Malnutrition Assess - Dietary Evaluation Nutrition/Malnutrition Findings: Nutrition Notes Start: 10/06/20 15:15 Freq: Status: Active Protocol: Document 10/08/20 12:47 EN (Rec: 10/08/20 12:56 EN [email or web address]) Co-Sign 10/08/20 12:47 LM Nutrition Notes Initial or Follow up Reassessment Current Diagnosis CKD(stage I-IV),Hypertension, Stroke Other Pertinent Diagnosis seizure disorder Current Diet Osmolite 1.5 at 55 ml/hr Labs/Tests 10/07: POC Glu 116 Pertinent Medications Reviewed Height 6 ft 1 in Weight 113.7 kg [place] Body Weight (kg) 83.63 BMI 33.0 Weight change and time frame weight change noted Weight Status Obese Subjective/Other Information F/u for TF start and tolerance . DI spoke with RN who states that pt is tolerating TF well. RN states that TF was most recently running at 45 ml/hr and is now on hold for a procedure. RN states that pt has no N/V/D. [employer] recommends pureed diet and it is ordered Burn Absent Trauma Absent GI Symptoms None Difficulty In Swallowing Current % PO Negligible Minimum of two criteria No physical signs of malnutrition #1 Nutrition Diagnosis Inadequate oral intake As Evidenced by Signs and Symptoms Diet advanced to pureed Diagnosis Progress(for reassessment Improved documentation) Is patient on ventilator? No Is Patient Ambulatory and/or Out of Bed No REE-([facility]-confined to bed) 2399.544 Kcal/Kg value to use for calculation 18 Approximate Energy Requirements Using 2047 kcal/Kg Calculation Used for Recommendations Kcal/kg Additional Notes Pro: 60-80g (0.6-0.8 g/kg AdjBW 99kg) Fluid:1 ml/kcal or per MD Nutrition Intervention Change Diet Order: Pureed diet or TF if pt doesn' t tolerate puree Nutrition Support: Osmolite 1.5 at 55 ml/hr Flush 175 ml q4h Kcal 1,980 Protein (gm) 83 Fluid (mL) 1,006 Goal #1 Tolerate pureed diet Goal #2 Meet at least 75% of protein and energy needs via pureed diet Anticipated Discharge Needs: Unable to determine at this time Follow-Up By: 10/11/20 Additional Comments F/U for pureed diet tolerance and need for TF
--- NOTE | 2020-10-09 16:51 | Gastroenterology Consultation ---
History of Present Illness - Reason for Consult Consult date: 10/09/20 PEG tube placement Requesting physician: CINDI ALSTON - History of Present Illness 60 YO Male with HTN, CVA LHP on DAPT, Nicotine Dependence, CKD, Seizure Disorder here with Acute/Subacute Ischemic Stroke. GI consulted for evaluation for PEG placement. Per daughter, patient had new facial droop and weakness. Patient noted to have acute/subacute ischemic stroke on MRI. Started on plavix and ASA 325 mg. No prior abdominal surgery hx. H/o colonoscopy in 2019. No prior EGD. Seen by speech therapy. Noted to have coughing with swallowing. Modified Barium Swallow study demonstrates an oral/pharyngeal phase dysphagia. No evidence of aspiration was identified with pureed nor nectar thickened liquids, however, the patient must be monitored closely to ensure that he swallows prior to giving him additional boluses. Recommend a pureed diet with nectar thickened liquids. Medication list reviewed. Past History Past Medical History: hypertension, renal failure, seizures, stroke Past Surgical History: No surgical history, Other (Reviewed) Social history: , lives with family Family history: hypertension Medications and Allergies Allergies Allergy/AdvReac Type Severity Reaction Status Date / Time No Known Allergies Allergy Unverified 10/04/20 15:30 Home Medications Medication Instructions Recorded Confirmed Last Taken Type Rosuvastatin Calcium 10 mg PO QDAY 07/31/19 10/09/20 Unknown History carvediloL [Coreg] 6.25 mg PO BID 07/31/19 10/09/20 Unknown History Clopidogrel [Plavix] 75 mg PO QDAY #30 tablet 08/09/20 10/09/20 Unknown Rx Linaclotide [Linzess] 72 mcg PO DAILY #30 tab 08/09/20 10/09/20 Unknown Rx Sodium Bicarbonate 650 mg PO DAILY #60 tab 08/09/20 10/09/20 Unknown Rx amLODIPine 10 mg PO QDAY #30 tablet 08/09/20 10/09/20 Unknown Rx cloNIDine [Catapres] 0.1 mg PO Q8HR #90 tablet 08/09/20 10/09/20 Unknown Rx hydrALAZINE [Apresoline TAB] 50 mg PO Q8HR #90 tablet 08/09/20 10/09/20 Unknown Rx Gabapentin [Neurontin] 300 mg PO Q8HR 10/05/20 10/05/20 Unknown History Active Meds: Active Medications Acetaminophen (Tylenol) 650 mg PO Q4H PRN PRN Reason: Pain, Mild (1-3) Amlodipine Besylate (Amlodipine) 10 mg PO QDAY [facility] Last Admin: 10/09/20 11:07 Dose: 10 mg Documented by: Lipase/Protease/Amylase (Josie Nogueira 10,500 Unit) 1 each FEEDTUBE PRN PRN PRN Reason: For Clogged Feeding Tube Aspirin (Aspirin) 325 mg PO QDAY [facility] Last Admin: 10/09/20 11:07 Dose: 325 mg Documented by: Atorvastatin Calcium (Lipitor) 80 mg PO QHS [facility] Last Admin: 10/08/20 22:17 Dose: 80 mg Documented by: Bicalutamide (Casodex) 50 mg PO DAILY [facility] Last Admin: 10/09/20 11:09 Dose: 50 mg Documented by: Bisacodyl (Dulcolax) 10 mg [place] QDAY PRN PRN Reason: Constipation Carvedilol (Coreg) 6.25 mg PO BID [facility] Last Admin: 10/09/20 11:07 Dose: 6.25 mg Documented by: Clonidine HCl (Catapres) 0.1 mg PO Q8HR [facility] Last Admin: 10/09/20 14:26 Dose: 0.1 mg Documented by: Clopidogrel Bisulfate (Plavix) 75 mg PO QDAY [facility] Last Admin: 10/09/20 11:08 Dose: 75 mg Documented by: Hydralazine HCl (Apresoline) 50 mg PO Q8HR [facility] Last Admin: 10/09/20 14:26 Dose: 50 mg Documented by: Labetalol HCl (Labetalol) 10 mg IV Q6HR PRN PRN Reason: Blood Pressure Levetiracetam (Keppra) 500 mg PO BID [facility] Last Admin: 10/09/20 11:08 Dose: 500 mg Documented by: Magnesium Hydroxide (Milk Of Magnesia) 30 ml PO Q4H PRN PRN Reason: Constipation Metoclopramide HCl (Reglan) 10 mg PO Q6H PRN PRN Reason: Nausea And Vomiting Last Admin: 10/04/20 20:39 Dose: 10 mg Documented by: Miscellaneous Medication (Linaclotide [Linzess]) 72 mcg PO DAILY [facility] Ondansetron HCl (Zofran) 4 mg IV Q8H PRN PRN Reason: Nausea And Vomiting Promethazine HCl (Phenergan) 25 mg [place] Q6H PRN PRN Reason: Nausea And Vomiting Simple Syrup (Simple Syrup) 15 ml FEEDTUBE PRN PRN PRN Reason: Hypoglycemia Simple Syrup (Simple Syrup) 30 ml FEEDTUBE PRN PRN PRN Reason: Hypoglycemia Sodium Bicarbonate (Sodium Bicarbonate) 650 mg PO DAILY O[facility] Last Admin: 10/09/20 11:07 Dose: 650 mg Documented by: Sodium Bicarbonate (Sodium Bicarbonate) 325 mg FEEDTUBE PRN PRN PRN Reason: For Clogged Feeding Tube Sodium Chloride (Sodium Chloride Flush Syringe 10 Ml) 10 ml IV PRN PRN PRN Reason: LINE FLUSH Review of Systems - Review of Systems ROS unobtainable: due to mental status Exam - Constitutional Vital Signs: Temp Pulse Resp BP Pulse Ox 97.5 F L 64 19 117/72 100 10/09/20 13:41 10/09/20 13:41 10/09/20 13:41 10/09/20 13:41 10/09/20 13:41 General appearance: no acute distress - Respiratory Respiratory effort: normal - Cardiovascular Rhythm: regular Heart Sounds: Present: S1 & S2 - Gastrointestinal General gastrointestinal: Present: soft, non-tender, non-distended - Neurologic Neurological: other (aphagic) - Labs CBC & Chem 7: 10/04/20 15:39 10/06/20 15:59 Lab Results: Laboratory Results - last 24 hr 10/08/20 10/09/20 21:28 08:20 POC Glucose 103 111 H Assessment and Plan Dysphagia - acute/subacute CVA. - on plavix and ASA 325 mg. - previous h/o CVA. this is his 2nd CVA. - seen by speech and oropharyngeal dysphagia. - discussed with daughter on the phone regarding PEG tube. nature of the procedure and risks of potential complications, including bleeding, infection, perforation, and aspiration/sedation complication. - patient to continue with work with speech. - will tentatively plan for EGD/PEG next week, 10/14. hold plavix and continue with ASA 81 mg. - Patient Problems (1) Dysphagia due to recent cerebrovascular accident (CVA) Current Visit: Yes Status: Acute
--- NOTE | 2020-10-09 18:39 | Magnetic Resonance Report ---
MRA NECK WITHOUT CONTRAST HISTORY: Cerebrovascular accident. COMPARISON: MRA neck 08/05/2020 TECHNIQUE: Routine MRA neck performed. 3-D/MIP reformats postprocessed. Percentage stenosis is dete rmined by direct quantitative measurements of distal internal carotid artery diameter compared with n ormal reference segments or by criteria similar to NASCET where applicable. CONTRAST: none FINDINGS: MRA NECK: Limitations: Patient motion artifact is limiting factor on this examination. Aortic arch: The aortic arch is not well evaluated on this noncontrast MRA neck. Vertebral arteries: Left vertebral artery is dominant. Basilar artery origin is not included on this study. Right carotid artery: Visualized portions of the mid and distal right common carotid artery, the campbell tid bifurcation and cervical portions of the right internal carotid arteries all have an unremarkable appearance. Left carotid artery: Visualized portions of the mid and distal segments of the left common carotid ar nyasia, left carotid bifurcation and cervical portions of the left internal carotid artery all have an unremarkable appearance. SUMMARY:The degree of stenosis, if any, is determined utilizing NASCET like criteria. In this case th ere is no indication of stenosis at the carotid bifurcations or elsewhere. IMPRESSION: 1. No significant abnormality on MRA neck. No interval change. Signer Name: Florin De La Vega MD Signed: 10/09/2020 6:34 PM Workstation Name: [id number]
[2020-10-10] MEDS: cloNIDine 0.1 MG TAB PO SCH ×3 (05:19→22:23)
[2020-10-10] MEDS: hydrALAZINE 25 MG TAB PO SCH ×3 (05:19→22:24)
[2020-10-10] MEDS: ASPIRIN 81 MG TAB CHEW PO SCH (10:31)
[2020-10-10] MEDS: BICALUTAMIDE 50 MG TAB PO SCH (10:31)
[2020-10-10] MEDS: SODIUM BICARBONATE 650 MG TAB PO SCH (10:31)
[2020-10-10] MEDS: amLODIPine 10 MG TAB PO SCH (10:31)
[2020-10-10] MEDS: carvediloL 6.25 MG TAB PO SCH ×2 (10:32→22:23)
[2020-10-10] MEDS: levETIRAcetam 500 MG/5 ML ORAL LIQD PO SCH ×2 (10:32→22:25)
--- NOTE | 2020-10-10 13:46 | Progress Note ---
Assessment and Plan Assessment and plan: 60 YO Male with HTN, CVA LHP on DAPT, Nicotine Dependence, CKD, Seizure Disorder not currently taking AED, presents to ED for evaluation. Patient states that he was in his usual state of health at bedtime which was around 2200 hrs. overnight. Patient states that he awoke from sleep around 0800 hrs. this morning and fell getting out of bed and could not get himself off of the floor. Patient daughter reports finding patient down on the floor, confused, and covered in urine. EMS was notified and upon arrival the patient was found to be in distress with a neurologic deficit. A code stroke was called and the patient was transported to [facility] for further care and evaluation of the aforementioned sym ptoms. Patient seen and evaluated in the emergency department. All lab and imaging studies reviewed. Patient was found to have clinical symptoms consistent with CVA and was initiated on stroke protocol in the emergency department. Teleneurology was consulted and the patient was deemed not a cand idate for TPA. Patient placed in observation status and initiated on stroke protocol. Patient denies fever, chills, chest pain, palpitations, productive cough, skin rash, recent ill contacts, or known exposure to COVID-19. Prior admission on 08/04/2020 reviewed. All medication listed at time of admission have been reconciled. Advanced care planning conducted in ED. 10/05: Patient remains very lethargic awaiting neurology work-up. No new findings of neurologic dysfunction was noted. Left-sided weakness is residual from prior. Reevaluate speech swallow when more awake. 10/06: Neurology input noted appears that the patient fell while trying to put his shoes on. Home health will be required at discharge probably with 24-hour aide or patient may need to be placed will consult case management. Continue antiplatelets and statin therapy at this time. No indication for MRI. As patient had a recent MRI study. We will also transferred to the medical floor 10/07: Speech re-eval, pt for placement assessment. Spoke to the daughter today who will like placement and also gave me more information that the patient 5 days prior to presentation had facial droop and was getting weaker. Will proceed with MRI study considering the delay in returning to baseline and with this new information. Also patients daughter due to work will not be able to provided 24 hr care at this time which is what this patient needs. Aspiration precautions. for now tolerating tube feed 11/13: MRI shows acute CVA. increase asa to 325mg. reconsult Neurology, check mra head and neck will start diet based on this recommendation anticipate possible discharge of The head of the bed up and discussed with nursing staff to continue the same. Modified Barium Swallow study was conducted this date. Patient demonstrates an oral/pharyngeal phase dysphagia characterized by reduced bolus movement, premature spillage into the valleculae, delayed swallow reflex and aspiration with thins. Bolus holding was noted with cueing to swallow. No evidence of aspiration was identified with pureed nor nectar thickened liquids, however, the patient must be monitored closely to ensure that he swallows prior to giving him additional boluses. Recommend a pureed diet with nectar thickened liquids. No straws should be used. Patient must be sitting upright and given time to swallow prior to additional bites. Medications should be crushed and placed in applesauce. Will continue to focus upon dysphagia intervention to aid the patient in improving oral musculature/ laryngeal skills. 10/09: Aspiration concerns, will obtain GI re-evluation for possible PEG as an alternative source of eating while the patient continues to improve. Keep HOB >45deg. 10/10: Hold plavix and Change asa to 81mg to allow for PEG placement. Begin PLACEMENT process. (1) CVA (cerebral vascular accident) Current Visit: Yes Status: Acute Plan to address problem: CVA protocol, CT head, Neuro check, DAPT, Lipid panel, Teleneurology consulted, PT consulted, OT consulted, Speech therapy consulted, Echocardiogram, Carotid doppler. (2) Chronic kidney disease (CKD) Current Visit: Yes Status: Acute Qualifiers: Chronic kidney disease stage: stage 2 (mild) Qualified Code(s): N18.2 - Chronic kidney disease, stage 2 (mild) Plan to address problem: IVF resuscitation, supportive care. at baseline (3) Seizure disorder Current Visit: Yes Status: Acute Plan to address problem: Keppra bid, continue current therapy, seizure precautions. (4) Nicotine dependence Current Visit: No Status: Acute Qualifiers: Nicotine product type: cigarettes Substance use status: in withdrawal Qualified Code(s): F17.213 - Nicotine dependence, cigarettes, with withdrawal Plan to address problem: Supportive care. smoking cessation counseling, (5) HTN (hypertension) Current Visit: No Status: Chronic Qualifiers: Hypertension type: essential hypertension Qualified Code(s): I10 - Essential (primary) hypertension Plan to address problem: Monitor BP q shift, continue medical management (6) Aphasia (7)Left hemoplegia (8)DVT prophylaxis Current Visit: Yes Status: Acute Plan to address problem: SCD to BLE while in bed (9) Advance care planning Current Visit: Yes Status: Acute Plan to address problem: Disease education conducted, prognosis discussed, patient is full code, care plan discussed, patient acknowledges understanding and agreement with care plan, +30 minutes. History Interval history: Patient seen and examined remains very lethargic but awake, discussed with nursing staff, with patience patient is able to eat but delay in swallow. Hospitalist Physical - Physical exam Narrative exam: VITAL SIGNS: Reviewed. GENERAL: The patient appears normally developed, obese, lethargic but awake left-sided facial droop chronically ill-appearing vital signs as documented. HEAD: No signs of head trauma. EYES: Pupils are equal. Extraocular motions intact. EARS: Hearing grossly intact. MOUTH: Oropharynx is normal, still with facial droop. NECK: No adenopathy, no JVD. CHEST: Chest with crackles breath sounds bilaterally. No wheezes, rales, or rhonchi. CARDIAC: Regular rate and rhythm. S1 and S2, without murmurs, gallops, or rubs. VASCULAR: No Edema. Peripheral pulses normal and equal in all extremities. ABDOMEN: Soft, non tender and non distended. No rebound or guarding, and no masses palpated. Bowel Sounds normal. MUSCULOSKELETAL: Good range of motion of all major joints. Extremities without clubbing, cyanosis or edema. NEUROLOGIC EXAM: Lethargic and obtunded left-sided hemiparesis residual chronic. Mild left facial droop. Unchanged per staff. Speech gurgle. Follows commands. PSYCHIATRIC: Mood normal. SKIN: detail exam as documented in skin assessment - Constitutional Vitals: Temp Pulse Resp BP Pulse Ox 98.5 F 70 18 113/60 99 10/10/20 07:25 10/10/20 10:00 10/10/20 07:25 10/10/20 07:25 10/10/20 07:25 General appearance: Present: mild distress HEART Score - HEART Score Troponin: Troponin T < 0.010 ng/mL (0.00-0.029) 10/04/20 15:39 Results - Labs CBC & Chem 7: 10/04/20 15:39 10/06/20 15:59 Labs: Laboratory Last Values WBC 7.0 K/mm3 (4.5-11.0) 10/04/20 15:39 RBC 3.97 M/mm3 (3.65-5.03) 10/04/20 15:39 Hgb 12.4 gm/dl (11.8-15.2) 10/04/20 15:39 Hct 36.5 % (35.5-45.6) 10/04/20 15:39 MCV 92 fl (84-94) 10/04/20 15:39 MCH 31 pg (28-32) 10/04/20 15:39 MCHC 34 % (32-34) 10/04/20 15:39 RDW 14.7 % (13.2-15.2) 10/04/20 15:39 Plt Count 176 K/mm3 (140-440) 10/04/20 15:39 Lymph % (Auto) 18.6 % (13.4-35.0) 10/04/20 15:39 Crane % (Auto) 10.7 % (0.0-7.3) H 10/04/20 15:39 Eos % (Auto) 6.6 % (0.0-4.3) H 10/04/20 15:39 Baso % (Auto) 0.7 % (0.0-1.8) 10/04/20 15:39 Lymph # (Auto) 1.3 K/mm3 (1.2-5.4) 10/04/20 15:39 Crane # (Auto) 0.7 K/mm3 (0.0-0.8) 10/04/20 15:39 Eos # (Auto) 0.5 K/mm3 (0.0-0.4) H 10/04/20 15:39 Baso # (Auto) 0.1 K/mm3 (0.0-0.1) 10/04/20 15:39 Seg Neutrophils % 63.4 % (40.0-70.0) 10/04/20 15:39 Seg Neutrophils # 4.4 K/mm3 (1.8-7.7) 10/04/20 15:39 PT 13.5 Sec. (12.2-14.9) 10/04/20 15:39 INR 1.01 (0.87-1.13) 10/04/20 15:39 APTT 29.2 Sec. (24.2-36.6) 10/04/20 15:39 Thrombin Time 15.2 Sec. (15.1-19.6) 10/04/20 15:39 Sodium 144 mmol/L (137-145) 10/06/20 15:59 Potassium 3.7 mmol/L (3.6-5.0) 10/06/20 15:59 Chloride 107.9 mmol/L (98-107) H 10/06/20 15:59 Carbon Dioxide 25 mmol/L (22-30) 10/06/20 15:59 Anion Gap 15 mmol/L 10/06/20 15:59 BUN 20 mg/dL (9-20) 10/06/20 15:59 Creatinine 2.2 mg/dL (0.8-1.3) H 10/06/20 15:59 Estimated GFR 37 ml/min 10/06/20 15:59 BUN/Creatinine Ratio 9 % 10/06/20 15:59 Glucose 82 mg/dL (75-100) 10/06/20 15:59 POC Glucose 111 mg/dL (70-105) H 10/09/20 08:20 Calcium 9.5 mg/dL (8.4-10.2) 10/06/20 15:59 Troponin T < 0.010 ng/mL (0.00-0.029) 10/04/20 15:39 Triglycerides 51 mg/dL (2-149) 10/05/20 09:46 Cholesterol 115 mg/dL (50-199) 10/05/20 09:46 LDL Cholesterol Direct 56 mg/dL (50-130) 10/05/20 09:46 HDL Cholesterol 53 mg/dL (40-59) 10/05/20 09:46 Cholesterol/HDL Ratio 2.16 % 10/05/20 09:46 Fontana/IV: Voiding Method Condom Catheter IV Catheter Type [Right Hand] Peripheral IV Active Medications - Current Medications Current Medications: Generic Name Dose Route Start Last Admin Trade Name Freq PRN Reason Stop Dose Admin Acetaminophen 650 mg 10/04/20 18:06 Tylenol PO Q4H PRN Pain, Mild (1-3) Amlodipine Besylate 10 mg 10/05/20 10:00 10/10/20 10:31 Amlodipine PO 10 mg QDAY OSEI Administration Lipase/Protease/Amylase 1 each 10/06/20 16:00 Josie Nogueira 10,500 Unit FEEDTUBE PRN PRN For Clogged Feeding Tube Aspirin 81 mg 10/10/20 10:00 10/10/20 10:31 Baby Aspirin PO 81 mg QDAY OSEI Administration Atorvastatin Calcium 80 mg 10/04/20 22:00 10/09/20 22:35 Lipitor PO 80 mg QHS OSEI Administration Bicalutamide 50 mg 10/05/20 10:00 10/10/20 10:31 Casodex PO 50 mg DAILY OSEI Administration Bisacodyl 10 mg 10/04/20 18:06 Dulcolax [place] QDAY PRN Constipation Carvedilol 6.25 mg 10/04/20 22:00 10/10/20 10:32 Coreg PO 6.25 mg BID OSEI Administration Clonidine HCl 0.1 mg 10/04/20 22:00 10/10/20 05:19 Catapres PO 0.1 mg Q8HR OSEI Administration Hydralazine HCl 50 mg 10/04/20 22:00 10/10/20 05:19 Apresoline PO 50 mg Q8HR OSEI Administration Labetalol HCl 10 mg 10/05/20 22:20 Labetalol IV Q6HR PRN Blood Pressure Levetiracetam 500 mg 10/07/20 22:00 10/10/20 10:32 Keppra PO 500 mg BID OSEI Administration Magnesium Hydroxide 30 ml 10/04/20 18:06 Milk Of Magnesia PO Q4H PRN Constipation Metoclopramide HCl 10 mg 10/04/20 18:06 10/04/20 20:39 Reglan PO 10 mg Q6H PRN Administration Nausea And Vomiting Miscellaneous Medication 72 mcg 10/05/20 10:00 Linaclotide [Linzess] PO DAILY [facility] Ondansetron HCl 4 mg 10/04/20 18:06 Zofran IV Q8H PRN Nausea And Vomiting Promethazine HCl 25 mg 10/04/20 18:06 Phenergan [place] Q6H PRN Nausea And Vomiting Simple Syrup 15 ml 10/06/20 16:00 Simple Syrup FEEDTUBE PRN PRN Hypoglycemia Simple Syrup 30 ml 10/06/20 16:00 Simple Syrup FEEDTUBE PRN PRN Hypoglycemia Sodium Bicarbonate 650 mg 10/05/20 10:00 10/10/20 10:31 Sodium Bicarbonate PO 650 mg DAILY OSEI Administration Sodium Bicarbonate 325 mg 10/06/20 16:00 Sodium Bicarbonate FEEDTUBE PRN PRN For Clogged Feeding Tube Sodium Chloride 10 ml 10/04/20 18:06 Sodium Chloride Flush Syringe 10 Ml IV PRN PRN LINE FLUSH Nutrition/Malnutrition Assess - Dietary Evaluation Nutrition/Malnutrition Findings: Nutrition Notes Start: 10/06/20 15:15 Freq: Status: Active Protocol: Document 10/08/20 12:47 EN (Rec: 10/08/20 12:56 EN [email or web address]) Co-Sign 10/08/20 12:47 LM Nutrition Notes Initial or Follow up Reassessment Current Diagnosis CKD(stage I-IV),Hypertension, Stroke Other Pertinent Diagnosis seizure disorder Current Diet Osmolite 1.5 at 55 ml/hr Labs/Tests 10/07: POC Glu 116 Pertinent Medications Reviewed Height 6 ft 1 in Weight 113.7 kg [place] Body Weight (kg) 83.63 BMI 33.0 Weight change and time frame weight change noted Weight Status Obese Subjective/Other Information F/u for TF start and tolerance . DI spoke with RN who states that pt is tolerating TF well. RN states that TF was most recently running at 45 ml/hr and is now on hold for a procedure. RN states that pt has no N/V/D. SEISMOLOGY TEACHER recommends pureed diet and it is ordered Burn Absent Trauma Absent GI Symptoms None Difficulty In Swallowing Current % PO Negligible Minimum of two criteria No physical signs of malnutrition #1 Nutrition Diagnosis Inadequate oral intake As Evidenced by Signs and Symptoms Diet advanced to pureed Diagnosis Progress(for reassessment Improved documentation) Is patient on ventilator? No Is Patient Ambulatory and/or Out of Bed No REE-([facility]-confined to bed) 2399.544 Kcal/Kg value to use for calculation 18 Approximate Energy Requirements Using 7 kcal/Kg Calculation Used for Recommendations Kcal/kg Additional Notes Pro: 60-80g (0.6-0.8 g/kg AdjBW 99kg) Fluid:1 ml/kcal or per MD Nutrition Intervention Change Diet Order: Pureed diet or TF if pt doesn' t tolerate puree Nutrition Support: Osmolite 1.5 at 55 ml/hr Flush 175 ml q4h Kcal 1,980 Protein (gm) 83 Fluid (mL) 1,006 Goal #1 Tolerate pureed diet Goal #2 Meet at least 75% of protein and energy needs via pureed diet Anticipated Discharge Needs: Unable to determine at this time Follow-Up By: 10/11/20 Additional Comments F/U for pureed diet tolerance and need for TF
[2020-10-11] MEDS: cloNIDine 0.1 MG TAB PO SCH ×3 (05:31→21:53)
[2020-10-11] MEDS: hydrALAZINE 25 MG TAB PO SCH ×3 (05:32→21:52)
[2020-10-11 06:18] LABS: Hematocrit 37.9 % (35.5-45.6); Hemoglobin 12.6 gm/dl (11.8-15.2); Mean Corpuscular HGB Conc 33 % (32-34); Mean Corpuscular Volume 95 fl (84-94); Platelet Count 148 K/mm3 (140-440)
[2020-10-11] MEDS: levETIRAcetam 500 MG/5 ML ORAL LIQD PO SCH ×2 (10:07→21:53)
[2020-10-11] MEDS: SODIUM BICARBONATE 650 MG TAB PO SCH (10:07)
[2020-10-11] MEDS: carvediloL 6.25 MG TAB PO SCH ×2 (10:08→21:52)
[2020-10-11] MEDS: ASPIRIN 81 MG TAB CHEW PO SCH (10:11)
[2020-10-11] MEDS: BICALUTAMIDE 50 MG TAB PO SCH (10:11)
[2020-10-11] MEDS: amLODIPine 10 MG TAB PO SCH (10:12)
--- NOTE | 2020-10-11 10:55 | Gastroenterology Progress Note ---
Assessment and Plan Dysphagia - acute/subacute CVA. - on plavix and ASA 325 mg. - previous h/o CVA. this is his 2nd CVA. - seen by speech and oropharyngeal dysphagia. - discussed with daughter on the phone regarding PEG tube. nature of the procedure and risks of potential complications, including bleeding, infection, perforation, and aspiration/sedation complication. - patient to continue with work with speech. - will tentatively plan for EGD/PEG next week, 10/14. hold plavix and continue with ASA 81 mg. - spoke with speech therapy today and patient taking in very little amount with pureed diet. will likely need alternative mean for nutrition. - Patient Problems (1) Dysphagia due to recent cerebrovascular accident (CVA) Current Visit: Yes Status: Acute Subjective Date of service: 10/11/20 Principal diagnosis: Acute CVA Interval history: No acute events. Taking in very little with pureed diet. Objective - Constitutional Vitals: Temp Pulse Resp BP Pulse Ox 99.9 F H 73 20 119/82 95 10/11/20 08:00 10/11/20 10:12 10/11/20 08:00 10/11/20 10:12 10/11/20 03:22 General appearance: no acute distress - EENT ENT: hearing intact - Neck Neck: supple - Respiratory Respiratory effort: normal - Cardiovascular Rhythm: regular Heart Sounds: Present: S1 & S2 - Gastrointestinal General gastrointestinal: Present: soft, non-tender, non-distended - Labs CBC & Chem 7: 10/11/20 04:37 10/11/20 04:37 Labs: Laboratory Results - last 24 hr 10/11/20 10/11/20 04:37 04:37 WBC 3.1 L RBC 4.00 Hgb 12.6 Hct 37.9 MCV 95 H MCH 32 MCHC 33 RDW 15.0 Plt Count 148 Sodium 146 H Potassium 3.9 Chloride 111.0 H Carbon Dioxide 26 Anion Gap 13 BUN 30 H Creatinine 2.6 H Estimated GFR 31 BUN/Creatinine Ratio 12 Glucose 118 H Calcium 9.0
--- NOTE | 2020-10-11 11:30 | Progress Note ---
Assessment and Plan Assessment and plan: 60 YO Male with HTN, CVA LHP on DAPT, Nicotine Dependence, CKD, Seizure Disorder not currently taking AED, presents to ED for evaluation. Patient states that he was in his usual state of health at bedtime which was around 2200 hrs. overnight. Patient states that he awoke from sleep around 0800 hrs. this morning and fell getting out of bed and could not get himself off of the floor. Patient daughter reports finding patient down on the floor, confused, and covered in urine. EMS was notified and upon arrival the patient was found to be in distress with a neurologic deficit. A code stroke was called and the patient was transported to [facility] for further care and evaluation of the aforementioned sym ptoms. Patient seen and evaluated in the emergency department. All lab and imaging studies reviewed. Patient was found to have clinical symptoms consistent with CVA and was initiated on stroke protocol in the emergency department. Teleneurology was consulted and the patient was deemed not a cand idate for TPA. Patient placed in observation status and initiated on stroke protocol. Patient denies fever, chills, chest pain, palpitations, productive cough, skin rash, recent ill contacts, or known exposure to COVID-19. Prior admission on 08/04/2020 reviewed. All medication listed at time of admission have been reconciled. Advanced care planning conducted in ED. 10/05: Patient remains very lethargic awaiting neurology work-up. No new findings of neurologic dysfunction was noted. Left-sided weakness is residual from prior. Reevaluate speech swallow when more awake. 10/06: Neurology input noted appears that the patient fell while trying to put his shoes on. Home health will be required at discharge probably with 24-hour aide or patient may need to be placed will consult case management. Continue antiplatelets and statin therapy at this time. No indication for MRI. As patient had a recent MRI study. We will also transferred to the medical floor 10/07: Speech re-eval, pt for placement assessment. Spoke to the daughter today who will like placement and also gave me more information that the patient 5 days prior to presentation had facial droop and was getting weaker. Will proceed with MRI study considering the delay in returning to baseline and with this new information. Also patients daughter due to work will not be able to provided 24 hr care at this time which is what this patient needs. Aspiration precautions. for now tolerating tube feed 11/13: MRI shows acute CVA. increase asa to 325mg. reconsult Neurology, check mra head and neck will start diet based on this recommendation anticipate possible discharge of The head of the bed up and discussed with nursing staff to continue the same. Modified Barium Swallow study was conducted this date. Patient demonstrates an oral/pharyngeal phase dysphagia characterized by reduced bolus movement, premature spillage into the valleculae, delayed swallow reflex and aspiration with thins. Bolus holding was noted with cueing to swallow. No evidence of aspiration was identified with pureed nor nectar thickened liquids, however, the patient must be monitored closely to ensure that he swallows prior to giving him additional boluses. Recommend a pureed diet with nectar thickened liquids. No straws should be used. Patient must be sitting upright and given time to swallow prior to additional bites. Medications should be crushed and placed in applesauce. Will continue to focus upon dysphagia intervention to aid the patient in improving oral musculature/ laryngeal skills. 10/09: Aspiration concerns, will obtain GI re-evluation for possible PEG as an alternative source of eating while the patient continues to improve. Keep HOB >45deg. 10/10: Hold plavix and Change asa to 81mg to allow for PEG placement. Begin PLACEMENT process. 10/11: Still with expressive aphasia will get speech therapy. Patient will benefit from group home facility prior authorization is in place. Patient also will benefit from an alternative source of nutrition as he is best unsteady with his current oral diet with high risk of aspiration. Due to recent Plavix this will be done on 14 October. If SNF is obtained before that time it may be beneficial for patient to be discharged and come outpatient for this procedure. Leukopenia continue to monitor (1) CVA (cerebral vascular accident) Current Visit: Yes Status: Acute Plan to address problem: CVA protocol, CT head, Neuro check, DAPT, Lipid panel, Teleneurology consulted, PT consulted, OT consulted, Speech therapy consulted, Echocardiogram, Carotid doppler. (2) Chronic kidney disease (CKD) Current Visit: Yes Status: Acute Qualifiers: Chronic kidney disease stage: stage 2 (mild) Qualified Code(s): N18.2 - Chronic kidney disease, stage 2 (mild) Plan to address problem: IVF resuscitation, supportive care. at baseline (3) Seizure disorder Current Visit: Yes Status: Acute Plan to address problem: Keppra bid, continue current therapy, seizure precautions. (4) Nicotine dependence Current Visit: No Status: Acute Qualifiers: Nicotine product type: cigarettes Substance use status: in withdrawal Qualified Code(s): F17.213 - Nicotine dependence, cigarettes, with withdrawal Plan to address problem: Supportive care. smoking cessation counseling, (5) HTN (hypertension) Current Visit: No Status: Chronic Qualifiers: Hypertension type: essential hypertension Qualified Code(s): I10 - Essential (primary) hypertension Plan to address problem: Monitor BP q shift, continue medical management (6) Aphasia (7)Left hemoplegia (8)DVT prophylaxis Current Visit: Yes Status: Acute Plan to address problem: SCD to BLE while in bed (9) Advance care planning Current Visit: Yes Status: Acute Plan to address problem: Disease education conducted, prognosis discussed, patient is full code, care plan discussed, patient acknowledges understanding and agreement with care plan, +30 minutes. History Interval history: Patient seen and examined remains, still with expressive aphasia Hospitalist Physical - Physical exam Narrative exam: VITAL SIGNS: Reviewed. GENERAL: The patient appears normally developed, obese, lethargic but awake left-sided facial droop chronically ill-appearing vital signs as documented. HEAD: No signs of head trauma. EYES: Pupils are equal. Extraocular motions intact. EARS: Hearing grossly intact. MOUTH: Oropharynx is normal, still with facial droop. NECK: No adenopathy, no JVD. CHEST: Chest with crackles breath sounds bilaterally. No wheezes, rales, or rhonchi. CARDIAC: Regular rate and rhythm. S1 and S2, without murmurs, gallops, or rubs. VASCULAR: No Edema. Peripheral pulses normal and equal in all extremities. ABDOMEN: Soft, non tender and non distended. No rebound or guarding, and no masses palpated. Bowel Sounds normal. MUSCULOSKELETAL: Good range of motion of all major joints. Extremities without clubbing, cyanosis or edema. NEUROLOGIC EXAM: Lethargic and obtunded left-sided hemiparesis residual chronic. Mild left facial droop. Unchanged per staff. Speech expressive aphasia. Fo llows commands. PSYCHIATRIC: Mood normal. SKIN: detail exam as documented in skin assessment - Constitutional Vitals: Temp Pulse Resp BP Pulse Ox 99.9 F H 73 20 119/82 95 10/11/20 08:00 10/11/20 10:12 10/11/20 08:00 10/11/20 10:12 10/11/20 03:22 General appearance: Present: mild distress HEART Score - HEART Score Troponin: Troponin T < 0.010 ng/mL (0.00-0.029) 10/04/20 15:39 Results - Labs CBC & Chem 7: 10/11/20 04:37 10/11/20 04:37 Labs: Laboratory Last Values WBC 3.1 K/mm3 (4.5-11.0) L 10/11/20 04:37 RBC 4.00 M/mm3 (3.65-5.03) 10/11/20 04:37 Hgb 12.6 gm/dl (11.8-15.2) 10/11/20 04:37 Hct 37.9 % (35.5-45.6) 10/11/20 04:37 MCV 95 fl (84-94) H 10/11/20 04:37 MCH 32 pg (28-32) 10/11/20 04:37 MCHC 33 % (32-34) 10/11/20 04:37 RDW 15.0 % (13.2-15.2) 10/11/20 04:37 Plt Count 148 K/mm3 (140-440) 10/11/20 04:37 Lymph % (Auto) 18.6 % (13.4-35.0) 10/04/20 15:39 [place] % (Auto) 10.7 % (0.0-7.3) H 10/04/20 15:39 Eos % (Auto) 6.6 % (0.0-4.3) H 10/04/20 15:39 Baso % (Auto) 0.7 % (0.0-1.8) 10/04/20 15:39 Lymph # (Auto) 1.3 K/mm3 (1.2-5.4) 10/04/20 15:39 [place] # (Auto) 0.7 K/mm3 (0.0-0.8) 10/04/20 15:39 Eos # (Auto) 0.5 K/mm3 (0.0-0.4) H 10/04/20 15:39 Baso # (Auto) 0.1 K/mm3 (0.0-0.1) 10/04/20 15:39 Seg Neutrophils % 63.4 % (40.0-70.0) 10/04/20 15:39 Seg Neutrophils # 4.4 K/mm3 (1.8-7.7) 10/04/20 15:39 PT 13.5 Sec. (12.2-14.9) 10/04/20 15:39 INR 1.01 (0.87-1.13) 10/04/20 15:39 APTT 29.2 Sec. (24.2-36.6) 10/04/20 15:39 Thrombin Time 15.2 Sec. (15.1-19.6) 10/04/20 15:39 Sodium 146 mmol/L (137-145) H 10/11/20 04:37 Potassium 3.9 mmol/L (3.6-5.0) 10/11/20 04:37 Chloride 111.0 mmol/L (98-107) H 10/11/20 04:37 Carbon Dioxide 26 mmol/L (22-30) 10/11/20 04:37 Anion Gap 13 mmol/L 10/11/20 04:37 BUN 30 mg/dL (9-20) H 10/11/20 04:37 Creatinine 2.6 mg/dL (0.8-1.3) H 10/11/20 04:37 Estimated GFR 31 ml/min 10/11/20 04:37 BUN/Creatinine Ratio 12 % 10/11/20 04:37 Glucose 118 mg/dL (75-100) H 10/11/20 04:37 POC Glucose 111 mg/dL (70-105) H 10/09/20 08:20 Calcium 9.0 mg/dL (8.4-10.2) 10/11/20 04:37 Troponin T < 0.010 ng/mL (0.00-0.029) 10/04/20 15:39 Triglycerides 51 mg/dL (2-149) 10/05/20 09:46 Cholesterol 115 mg/dL (50-199) 10/05/20 09:46 LDL Cholesterol Direct 56 mg/dL (50-130) 10/05/20 09:46 HDL Cholesterol 53 mg/dL (40-59) 10/05/20 09:46 Cholesterol/HDL Ratio 2.16 % 10/05/20 09:46 Fontana/IV: Voiding Method Condom Catheter IV Catheter Type [Right Hand] Peripheral IV Active Medications - Current Medications Current Medications: Generic Name Dose Route Start Last Admin Trade Name Freq PRN Reason Stop Dose Admin Acetaminophen 650 mg 10/04/20 18:06 10/10/20 22:24 Tylenol PO 650 mg Q4H PRN Administration Pain, Mild (1-3) Amlodipine Besylate 10 mg 10/05/20 10:00 10/11/20 10:12 Amlodipine PO 10 mg QDAY OSEI Administration Lipase/Protease/Amylase 1 each 10/06/20 16:00 Josie Nogueira 10,500 Unit FEEDTUBE PRN PRN For Clogged Feeding Tube Aspirin 81 mg 10/10/20 10:00 10/11/20 10:11 Baby Aspirin PO 81 mg QDAY OSEI Administration Atorvastatin Calcium 80 mg 10/04/20 22:00 10/10/20 22:24 Lipitor PO 80 mg QHS OSEI Administration Bicalutamide 50 mg 10/05/20 10:00 10/11/20 10:11 Casodex PO 50 mg DAILY OSEI Administration Bisacodyl 10 mg 10/04/20 18:06 Dulcolax OH QDAY PRN Constipation Carvedilol 6.25 mg 10/04/20 22:00 10/11/20 10:08 Coreg PO 6.25 mg BID OSEI Administration Clonidine HCl 0.1 mg 10/04/20 22:00 10/11/20 05:31 Catapres PO 0.1 mg Q8HR OSEI Administration Hydralazine HCl 50 mg 10/04/20 22:00 10/11/20 05:32 Apresoline PO 50 mg Q8HR OSEI Administration Labetalol HCl 10 mg 10/05/20 22:20 Labetalol IV Q6HR PRN Blood Pressure Levetiracetam 500 mg 10/07/20 22:00 10/11/20 10:07 Keppra PO 500 mg BID OSEI Administration Magnesium Hydroxide 30 ml 10/04/20 18:06 Milk Of Magnesia PO Q4H PRN Constipation Metoclopramide HCl 10 mg 10/04/20 18:06 10/04/20 20:39 Reglan PO 10 mg Q6H PRN Administration Nausea And Vomiting Miscellaneous Medication 72 mcg 10/05/20 10:00 Linaclotide [Linzess] PO DAILY OSEI Ondansetron HCl 4 mg 10/04/20 18:06 Zofran IV Q8H PRN Nausea And Vomiting Promethazine HCl 25 mg 10/04/20 18:06 Phenergan [place] Q6H PRN Nausea And Vomiting Simple Syrup 15 ml 10/06/20 16:00 Simple Syrup FEEDTUBE PRN PRN Hypoglycemia Simple Syrup 30 ml 10/06/20 16:00 Simple Syrup FEEDTUBE PRN PRN Hypoglycemia Sodium Bicarbonate 650 mg 10/05/20 10:00 10/11/20 10:07 Sodium Bicarbonate PO 650 mg DAILY OSEI Administration Sodium Bicarbonate 325 mg 10/06/20 16:00 Sodium Bicarbonate FEEDTUBE PRN PRN For Clogged Feeding Tube Sodium Chloride 10 ml 10/04/20 18:06 Sodium Chloride Flush Syringe 10 Ml IV PRN PRN LINE FLUSH Nutrition/Malnutrition Assess - Dietary Evaluation Nutrition/Malnutrition Findings: Nutrition Notes Start: 10/06/20 15:15 Freq: Status: Active Protocol: Document 10/11/20 10:21 LM (Rec: 10/11/20 10:30 LM [email or web address]) Nutrition Notes Initial or Follow up Reassessment Current Diagnosis CKD(stage I-IV),Hypertension, Stroke Other Pertinent Diagnosis seizure disorder Current Diet Pureed w/ nectar like liquids Labs/Tests Na 146 BUN 30 Cr 2.6 Pertinent Medications Reviewed Height 6 ft 1 in Weight 108.6 kg [place]bot Body Weight (kg) 83.63 BMI 31.6 Weight change and time frame Wt change noted Weight Status Obese Subjective/Other Information Pt only ate bites of apple sauce this AM. Spoke with GI. Pt planning on getting PEG later this week due to pt being on Plavix. Burn Absent Trauma Absent GI Symptoms None Difficulty In Swallowing Current % PO Negligible Minimum of two criteria No physical signs of malnutrition #1 Nutrition Diagnosis Inadequate oral intake As Evidenced by Signs and Symptoms Pt not eating pureed diet Diagnosis Progress(for reassessment Worsened documentation) Is patient on ventilator? No Is Patient Ambulatory and/or Out of Bed No REE-([facility]-confined to bed) 2338.404 Kcal/Kg value to use for calculation 18 Approximate Energy Requirements Using 1955 kcal/Kg Calculation Used for Recommendations Kcal/kg Additional Notes Pro: 60-80g (0.6-0.8 g/kg AdjBW 99kg) Fluid:1 ml/kcal or per MD Nutrition Intervention Change Diet Order: Pureed diet and TF Nutrition Support: Osmolite 1.5 at 55 ml/hr , flush 175 ml q4h, once consulted Add Supplement/Snack (indicate name/kcal Nepro BID /protein ) Provides kCal: 850 Provides Protein (gm) 38 Goal #1 Tolerate pureed diet Goal #2 Meet at least 75% of protein and energy needs via pureed diet and ONS Anticipated Discharge Needs: TF Follow-Up By: 10/13/20 Additional Comments F/U for PO/ONS intakes, PEG placeemnt
[2020-10-11] MEDS: ONDANSETRON 4 MG/2 ML INJ IV PRN (18:21)
[2020-10-12] MEDS: cloNIDine 0.1 MG TAB PO SCH ×3 (06:17→22:52)
[2020-10-12] MEDS: hydrALAZINE 25 MG TAB PO SCH ×3 (06:17→22:52)
[2020-10-12] MEDS: ASPIRIN 81 MG TAB CHEW PO SCH (09:40)
[2020-10-12] MEDS: amLODIPine 10 MG TAB PO SCH (09:40)
[2020-10-12] MEDS: levETIRAcetam 500 MG/5 ML ORAL LIQD PO SCH ×2 (09:41→22:48)
[2020-10-12] MEDS: BICALUTAMIDE 50 MG TAB PO SCH (09:41)
[2020-10-12] MEDS: carvediloL 6.25 MG TAB PO SCH ×2 (09:41→22:52)
[2020-10-12] MEDS: SODIUM BICARBONATE 650 MG TAB PO SCH (10:27)
--- NOTE | 2020-10-12 12:12 | Progress Note ---
Assessment and Plan Assessment and plan: --Acute CVA; with left-sided hemiparesis Dysarthria, dysphagia Aspirin and Plavix held in preparation for possible PEG placement --Dysphagia; failed swallow evaluation, GI has already evaluated the patient Possible PEG placement on 10/14/2020, patient's aspirin and Plavix are held in preparation --History of seizure disorder; Seizure precautions, continue antiepileptic medications, patient cannot drive --Chronic kidney disease/acute on chronic kidney disease; Vasomotor nephropathy, closely monitor renal function Avoid nephrotoxins, nephrology consult --Hypertension; moderate control Continue current antihypertensives and as needed medications --Dyslipidemia; statin --Ongoing tobacco use; smoking cessation counseling Nicotine patch as needed --DVT prophylaxis; SCDs --DC planning per case management Subacute rehab/SNF/acute rehab placement when stable We will closely monitor the patient and adjust management as needed Plan of care reviewed with the patient and his nurse Brief history; 60 YO Male with HTN, CVA LHP on DAPT, Nicotine Dependence, CKD, Seizure Disorder not currently taking AED, presents to ED for evaluation. Patient states that he was in his usual state of health at bedtime which was around 2200 hrs. overnight. Patient states that he awoke from sleep around 0800 hrs. this morning and fell getting out of bed and could not get himself off of the floor. Patient daughter reports finding patient down on the floor, confused, and covere d in urine. EMS was notified and upon arrival the patient was found to be in distress with a neurologic deficit. A code stroke was called and the patient was transported to [facility] for further care and evaluation of the aforementioned symptoms. Patient seen and evaluated in the emergency department. All lab and imaging studies reviewed. Patient was found to have clinical symptoms consistent with CVA and was initiated on stroke protocol in the emergency department. Teleneurology was consulted and the patient was deemed not a candidate for TPA. Patient placed in observation status and initiated on stroke protocol. Patient denies fever, chills, chest pain, palpitations, productive cough, skin rash, recent ill contacts, or known exposure to COVID-19. Prior admission on 08/04/2020 reviewed. All medication listed at time of admission have been reconciled. Advanced care planning conducted in ED. 10/05: Patient remains very lethargic awaiting neurology work-up. No new findings of neurologic dysfunction was noted. Left-sided weakness is residual from prior. Reevaluate speech swallow when more awake. 10/06: Neurology input noted appears that the patient fell while trying to put his shoes on. Home health will be required at discharge probably with 24-hour aide or patient may need to be placed will consult case management. Continue antiplatelets and statin therapy at this time. No indication for MRI. As patient had a recent MRI study. We will also transferred to the medical floor 10/07: Speech re-eval, pt for placement assessment. Spoke to the daughter today who will like placement and also gave me more information that the patient 5 days prior to presentation had facial droop and was getting weaker. Will proceed with MRI study considering the delay in returning to baseline and with this new information. Also patients daughter due to work will not be able to provided 24 hr care at this time which is what this patient needs. Aspiration precautions. for now tolerating tube feed 10/08: MRI shows acute CVA. increase asa to 325mg. reconsult Neurology, check mra head and neck will start diet based on this recommendation anticipate possible discharge of The head of the bed up and discussed with nursing staff to continue the same. Modified Barium Swallow study was conducted this date. Patient demonstrates an oral/pharyngeal phase dysphagia characterized by reduced bolus movement, premature spillage into the valleculae, delayed swallow reflex and aspiration with thins. Bolus holding was noted with cueing to swallow. No evidence of aspiration was identified with pureed nor nectar thickened liquids, however, the patient must be monitored closely to ensure that he swallows prior to giving him additional boluses. Recommend a pureed diet with nectar thickened liquids. No straws should be used. Patient must be sitting upright and given time to swallow prior to additional bites. Medications should be crushed and placed in applesauce. Will continue to focus upon dysphagia intervention to aid the patient in improving oral musculature/ laryngeal skills. 10/09: Aspiration concerns, will obtain GI re-evluation for possible PEG as an alternative source of eating while the patient continues to improve. Keep HOB >45deg. 10/10: Hold plavix and Change asa to 81mg to allow for PEG placement. Begin PLACEMENT process. 10/12; failed swallow evaluation, PEG placement per GI, on 10/14/2020, meanwhile will have Dobbhoff for medications, and tube feeding 11/18; failed swallow evaluation, unable to introduce Dobbhoff even after multiple tries, possible PEG placement tomorrow 10/14/2020 per GI Patient is already n.p.o. status History Interval history: I have seen and examined the patient at the bedside this morning Patient's chart and medications reviewed Patient was tolerating pured diet however this morning nurse reports that he has some cough Diet held and requested for speech swallow evaluation Patient alert and awake Vital signs noted Hospitalist Physical - Constitutional Vitals: Temp Pulse Resp BP Pulse Ox 98.7 F 62 18 115/54 98 10/12/20 03:23 10/12/20 06:17 10/12/20 03:23 10/12/20 06:17 10/12/20 03:23 General appearance: Present: mild distress, obese, other (Dysarthria, dysphagia) - EENT Eyes: Present: PERRL, EOM intact - Neck Neck: Present: supple, normal ROM - Respiratory Respiratory effort: normal Respiratory: bilateral: diminished, rhonchi, negative: rales, wheezing - Cardiovascular Rhythm: regular Heart Sounds: Present: S1 & S2 - Extremities Extremities: no ischemia Extremity abnormal: edema - Abdominal General gastrointestinal: soft, non-tender, non-distended - Integumentary Integumentary: Present: clear, warm - Psychiatric Psychiatric: appropriate mood/affect, other (Dysarthria) - Neurologic Neurologic: other (Dysarthria, dysphagia, residual left-sided weakness) HEART Score - HEART Score Troponin: Troponin T < 0.010 ng/mL (0.00-0.029) 10/04/20 15:39 Results - Labs CBC & Chem 7: 10/11/20 04:37 10/11/20 04:37 Labs: Laboratory Last Values WBC 3.1 K/mm3 (4.5-11.0) L 10/11/20 04:37 RBC 4.00 M/mm3 (3.65-5.03) 10/11/20 04:37 Hgb 12.6 gm/dl (11.8-15.2) 10/11/20 04:37 Hct 37.9 % (35.5-45.6) 10/11/20 04:37 MCV 95 fl (84-94) H 10/11/20 04:37 MCH 32 pg (28-32) 10/11/20 04:37 MCHC 33 % (32-34) 10/11/20 04:37 RDW 15.0 % (13.2-15.2) 10/11/20 04:37 Plt Count 148 K/mm3 (140-440) 10/11/20 04:37 Lymph % (Auto) 18.6 % (13.4-35.0) 10/04/20 15:39 [place] % (Auto) 10.7 % (0.0-7.3) H 10/04/20 15:39 Eos % (Auto) 6.6 % (0.0-4.3) H 10/04/20 15:39 Baso % (Auto) 0.7 % (0.0-1.8) 10/04/20 15:39 Lymph # (Auto) 1.3 K/mm3 (1.2-5.4) 10/04/20 15:39 [place] # (Auto) 0.7 K/mm3 (0.0-0.8) 10/04/20 15:39 Eos # (Auto) 0.5 K/mm3 (0.0-0.4) H 10/04/20 15:39 Baso # (Auto) 0.1 K/mm3 (0.0-0.1) 10/04/20 15:39 Seg Neutrophils % 63.4 % (40.0-70.0) 10/04/20 15:39 Seg Neutrophils # 4.4 K/mm3 (1.8-7.7) 10/04/20 15:39 PT 13.5 Sec. (12.2-14.9) 10/04/20 15:39 INR 1.01 (0.87-1.13) 10/04/20 15:39 APTT 29.2 Sec. (24.2-36.6) 10/04/20 15:39 Thrombin Time 15.2 Sec. (15.1-19.6) 10/04/20 15:39 Sodium 146 mmol/L (137-145) H 10/11/20 04:37 Potassium 3.9 mmol/L (3.6-5.0) 10/11/20 04:37 Chloride 111.0 mmol/L (98-107) H 10/11/20 04:37 Carbon Dioxide 26 mmol/L (22-30) 10/11/20 04:37 Anion Gap 13 mmol/L 10/11/20 04:37 BUN 30 mg/dL (9-20) H 10/11/20 04:37 Creatinine 2.6 mg/dL (0.8-1.3) H 10/11/20 04:37 Estimated GFR 31 ml/min 10/11/20 04:37 BUN/Creatinine Ratio 12 % 10/11/20 04:37 Glucose 118 mg/dL (75-100) H 10/11/20 04:37 POC Glucose 111 mg/dL (70-105) H 10/09/20 08:20 Calcium 9.0 mg/dL (8.4-10.2) 10/11/20 04:37 Troponin T < 0.010 ng/mL (0.00-0.029) 10/04/20 15:39 Triglycerides 51 mg/dL (2-149) 10/05/20 09:46 Cholesterol 115 mg/dL (50-199) 10/05/20 09:46 LDL Cholesterol Direct 56 mg/dL (50-130) 10/05/20 09:46 HDL Cholesterol 53 mg/dL (40-59) 10/05/20 09:46 Cholesterol/HDL Ratio 2.16 % 10/05/20 09:46 [place]/IV: Voiding Method Condom Catheter IV Catheter Type [Right Hand] Peripheral IV Active Medications - Current Medications Current Medications: Generic Name Dose Route Start Last Admin Trade Name Freq PRN Reason Stop Dose Admin Acetaminophen 650 mg 10/04/20 18:06 10/10/20 22:24 Tylenol PO 650 mg Q4H PRN Administration Pain, Mild (1-3) Amlodipine Besylate 10 mg 10/05/20 10:00 10/12/20 09:40 Amlodipine PO Not Given QDAY [facility] Lipase/Protease/Amylase 1 each 10/06/20 16:00 Pancreblaire Nogueira 10,500 Unit FEEDTUBE PRN PRN For Clogged Feeding Tube Aspirin 81 mg 10/10/20 10:00 10/12/20 09:40 Baby Aspirin PO Not Given QDAY [facility] Atorvastatin Calcium 80 mg 10/04/20 22:00 10/11/20 21:53 Lipitor PO 80 mg QHS OSEI Administration Bicalutamide 50 mg 10/05/20 10:00 11/17/20 09:41 Casodex PO Not Given DAILY [facility] Bisacodyl 10 mg 10/04/20 18:06 Dulcolax MT QDAY PRN Constipation Carvedilol 6.25 mg 10/04/20 22:00 10/12/20 09:41 Coreg PO Not Given BID [facility] Clonidine HCl 0.1 mg 10/04/20 22:00 10/12/20 06:17 Catapres PO 0.1 mg Q8HR OSEI Administration Hydralazine HCl 50 mg 10/04/20 22:00 10/12/20 06:17 Apresoline PO 50 mg Q8HR OSEI Administration Labetalol HCl 10 mg 10/05/20 22:20 Labetalol IV Q6HR PRN Blood Pressure Levetiracetam 500 mg 10/07/20 22:00 10/12/20 09:41 Keppra PO Not Given BID [facility] Magnesium Hydroxide 30 ml 10/04/20 18:06 Milk Of Magnesia PO Q4H PRN Constipation Metoclopramide HCl 10 mg 10/04/20 18:06 10/04/20 20:39 Reglan PO 10 mg Q6H PRN Administration Nausea And Vomiting Miscellaneous Medication 72 mcg 10/05/20 10:00 Linaclotide [Linzess] PO DAILY [facility] Ondansetron HCl 4 mg 10/04/20 18:06 10/11/20 18:21 Zofran IV 4 mg Q8H PRN Administration Nausea And Vomiting Promethazine HCl 25 mg 10/04/20 18:06 Phenergan [place] Q6H PRN Nausea And Vomiting Simple Syrup 15 ml 10/06/20 16:00 Simple Syrup FEEDTUBE PRN PRN Hypoglycemia Simple Syrup 30 ml 10/06/20 16:00 Simple Syrup FEEDTUBE PRN PRN Hypoglycemia Sodium Bicarbonate 650 mg 10/05/20 10:00 10/12/20 10:27 Sodium Bicarbonate PO Not Given DAILY [facility] Sodium Bicarbonate 325 mg 10/06/20 16:00 Sodium Bicarbonate FEEDTUBE PRN PRN For Clogged Feeding Tube Sodium Chloride 10 ml 10/04/20 18:06 10/11/20 21:53 Sodium Chloride Flush Syringe 10 Ml IV 10 ml PRN PRN Administration LINE FLUSH Nutrition/Malnutrition Assess - Dietary Evaluation Nutrition/Malnutrition Findings: Nutrition Notes Start: 11/11/20 15:15 Freq: Status: Active Protocol: Document 10/11/20 10:21 LM (Rec: 10/11/20 10:30 LM [id number]) Nutrition Notes Initial or Follow up Reassessment Current Diagnosis CKD(stage I-IV),Hypertension, Stroke Other Pertinent Diagnosis seizure disorder Current Diet Pureed w/ nectar like liquids Labs/Tests Na 146 BUN 30 Cr 2.6 Pertinent Medications Reviewed Height 6 ft 1 in Weight 108.6 kg [place] Body Weight (kg) 83.63 BMI 31.6 Weight change and time frame Wt change noted Weight Status Obese Subjective/Other Information Pt only ate bites of apple sauce this AM. Spoke with GI. Pt planning on getting PEG later this week due to pt being on Plavix. Burn Absent Trauma Absent GI Symptoms None Difficulty In Swallowing Current % PO Negligible Minimum of two criteria No physical signs of malnutrition #1 Nutrition Diagnosis Inadequate oral intake As Evidenced by Signs and Symptoms Pt not eating pureed diet Diagnosis Progress(for reassessment Worsened documentation) Is patient on ventilator? No Is Patient Ambulatory and/or Out of Bed No REE-([facility]-confined to bed) [phone] Kcal/Kg value to use for calculation 18 Approximate Energy Requirements Using 1955 kcal/Kg Calculation Used for Recommendations Kcal/kg Additional Notes Pro: 60-80g (0.6-0.8 g/kg AdjBW 99kg) Fluid:1 ml/kcal or per MD Nutrition Intervention Change Diet Order: Pureed diet and TF Nutrition Support: Osmolite 1.5 at 55 ml/hr , flush 175 ml q4h, once consulted Add Supplement/Snack (indicate name/kcal Nepro BID /protein ) Provides kCal: 850 Provides Protein (gm) 38 Goal #1 Tolerate pureed diet Goal #2 Meet at least 75% of protein and energy needs via pureed diet and ONS Anticipated Discharge Needs: TF Follow-Up By: 10/13/20 Additional Comments F/U for PO/ONS intakes, PEG placeemnt
[2020-10-13] MEDS: hydrALAZINE 25 MG TAB PO SCH ×3 (05:43→22:14)
[2020-10-13] MEDS: cloNIDine 0.1 MG TAB PO SCH ×3 (05:43→22:14)
--- NOTE | 2020-10-13 09:38 | Consultation ---
History of Present Illness - Reason for Consult Consult date: 10/13/20 acute renal failure, chronic renal failure Requesting physician: MICK RODRIGUEZ - History of Present Illness 60 YO Male with HTN, CVA LHP on DAPT, Nicotine Dependence, CKD, Seizure Disorder not currently taking AED, presents to ED for evaluation. Patient states that he was in his usual state of health at bedtime which was around 2200 hrs. overnight. Patient states that he awoke from sleep around 0800 hrs. this morning and fell getting out of bed and could not get himself off of the floor. Patient daughter reports finding patient down on the floor, confused, and covered in urine. EMS was notified and upon arrival the patient was found to be in distress with a neurologic deficit. A code stroke was called and the patient was transported to [facility] for further care and evaluation of the aforementioned symptoms. Patient seen and evaluated in the emergency department. All lab and imaging studies reviewed. Patient was found to have clinical symptoms consistent with CVA and was initiated on stroke protocol in the emergency department. Teleneurology was consulted and the patient was deemed not a candidate for TPA. Patient placed in observation status and initiated on stroke protocol. Patient denies fever, chills, chest pain, palpitations, productive cough, skin rash, recent ill contacts, or known exposure to COVID-19. Prior admission on 08/04/2020 reviewed. All medication listed at time of admission have been reconciled. Advanced care planning conducted in ED. Past History Past Medical History: hypertension, renal failure, seizures, stroke Past Surgical History: No surgical history, Other (Reviewed) Social history: , lives with family Family history: hypertension Constitutional: no weight loss, no weight gain, no fever Ears, nose, mouth and throat: no ear pain, no ear discharge, no tinnitis, no decreased hearing, no nose pain Cardiovascular: no chest pain, no orthopnea, no palpitations, no rapid/irregular heart beat, no syncope Respiratory: no cough, no cough with sputum, no excessive sputum, no dyspnea on exertion Gastrointestinal: no abdominal pain, no nausea, no vomiting, no diarrhea, no change in bowel habits, no coffee ground emesis Genitourinary Male: no hematuria, no urinary frequency, no urinary hesitancy Rectal: no pain, no incontinence, no bleeding Musculoskeletal: no neck stiffness, no neck pain, no shooting arm pain, no shooting leg pain, no leg numbness/tingling, no redness of joints Integumentary: no rash, no pruritis, no redness, no wounds, no jaundice Neurological: weakness, lack of coordination, balance difficulties, no head injury, no transient paralysis, no convulsions, no change in speech Psychiatric: no anxiety, no memory loss, no change in sleep habits, no sleep disturbances, no insomnia Endocrine: no cold intolerance, no heat intolerance, no polyphagia, no excessive thirst, no polydipsia, no polyuria Hematologic/Lymphatic: no easy bruising, no lymphedema Allergic/Immunologic: no urticaria, no allergic rhinitis, no wheezing, no anaph ylaxis Past History Past Medical History: hypertension, renal failure, seizures, stroke Past Surgical History: No surgical history, Other (Reviewed) Social history: , lives with family Family history: hypertension Medications and Allergies Allergies Allergy/AdvReac Type Severity Reaction Status Date / Time No Known Allergies Allergy Unverified 10/04/20 15:30 Home Medications Medication Instructions Recorded Confirmed Last Taken Type Rosuvastatin Calcium 10 mg PO QDAY 07/31/19 10/09/20 Unknown History carvediloL [Coreg] 6.25 mg PO BID 07/31/19 10/09/20 Unknown History Clopidogrel [Plavix] 75 mg PO QDAY #30 tablet 08/09/20 10/09/20 Unknown Rx Linaclotide [Linzess] 72 mcg PO DAILY #30 tab 08/09/20 10/09/20 Unknown Rx Sodium Bicarbonate 650 mg PO DAILY #60 tab 08/09/20 10/09/20 Unknown Rx amLODIPine 10 mg PO QDAY #30 tablet 08/09/20 10/09/20 Unknown Rx cloNIDine [Catapres] 0.1 mg PO Q8HR #90 tablet 08/09/20 10/09/20 Unknown Rx hydrALAZINE [Apresoline TAB] 50 mg PO Q8HR #90 tablet 08/09/20 10/09/20 Unknown Rx Gabapentin [Neurontin] 300 mg PO Q8HR 10/05/20 10/05/20 Unknown History Active Meds: Active Medications Acetaminophen (Tylenol) 650 mg PO Q4H PRN PRN Reason: Pain, Mild (1-3) Last Admin: 10/10/20 22:24 Dose: 650 mg Documented by: Amlodipine Besylate (Amlodipine) 10 mg PO QDAY [facility] Last Admin: 10/12/20 09:40 Dose: Not Given Documented by: Lipase/Protease/Amylase (Josie Nogueira 10,500 Unit) 1 each FEEDTUBE PRN PRN PRN Reason: For Clogged Feeding Tube Atorvastatin Calcium (Lipitor) 80 mg PO QHS [facility] Last Admin: 10/12/20 22:52 Dose: Not Given Documented by: Bicalutamide (Casodex) 50 mg PO DAILY [facility] Last Admin: 10/12/20 09:41 Dose: Not Given Documented by: Bisacodyl (Dulcolax) 10 mg [place] QDAY PRN PRN Reason: Constipation Carvedilol (Coreg) 6.25 mg PO BID [facility] Last Admin: 10/12/20 22:52 Dose: Not Given Documented by: Clonidine HCl (Catapres) 0.1 mg PO Q8HR [facility] Last Admin: 10/13/20 05:43 Dose: Not Given Documented by: Hydralazine HCl (Apresoline) 50 mg PO Q8HR [facility] Last Admin: 10/13/20 05:43 Dose: Not Given Documented by: Labetalol HCl (Labetalol) 10 mg IV Q6HR PRN PRN Reason: Blood Pressure Levetiracetam (Keppra) 500 mg PO BID [facility] Last Admin: 10/12/20 22:48 Dose: 500 mg Documented by: Magnesium Hydroxide (Milk Of Magnesia) 30 ml PO Q4H PRN PRN Reason: Constipation Metoclopramide HCl (Reglan) 10 mg PO Q6H PRN PRN Reason: Nausea And Vomiting Last Admin: 10/04/20 20:39 Dose: 10 mg Documented by: Miscellaneous Medication (Linaclotide [Linzess]) 72 mcg PO DAILY [facility] Ondansetron HCl (Zofran) 4 mg IV Q8H PRN PRN Reason: Nausea And Vomiting Last Admin: 10/11/20 18:21 Dose: 4 mg Documented by: Promethazine HCl (Phenergan) 25 mg [place] Q6H PRN PRN Reason: Nausea And Vomiting Simple Syrup (Simple Syrup) 15 ml FEEDTUBE PRN PRN PRN Reason: Hypoglycemia Simple Syrup (Simple Syrup) 30 ml FEEDTUBE PRN PRN PRN Reason: Hypoglycemia Sodium Bicarbonate (Sodium Bicarbonate) 650 mg PO DAILY [facility] Last Admin: 10/12/20 10:27 Dose: Not Given Documented by: Sodium Bicarbonate (Sodium Bicarbonate) 325 mg FEEDTUBE PRN PRN PRN Reason: For Clogged Feeding Tube Sodium Chloride (Sodium Chloride Flush Syringe 10 Ml) 10 ml IV PRN PRN PRN Reason: LINE FLUSH Last Admin: 10/11/20 21:53 Dose: 10 ml Documented by: Exam - Vital Signs Vital signs: Vital Signs Temp Pulse Resp BP Pulse Ox 98.0 F 82 13 169/101 99 10/04/20 15:50 10/04/20 15:50 10/04/20 15:50 10/04/20 15:50 10/04/20 15:50 - Physical Exam Narrative exam: - Constitutional General appearance: Present: mild distress - EENT Eyes: Present: PERRL ENT: hearing intact, clear oral mucosa - Neck Neck: Present: supple, normal ROM - Respiratory Respiratory effort: normal Respiratory: bilateral: CTA - Cardiovascular Heart Sounds: Present: S1 & S2. Absent: rub, click - Extremities Extremities: pulses symmetrical, No edema Peripheral Pulses: within normal limits - Abdominal General gastrointestinal: Present: soft, non-tender, non-distended, normal bowel sounds Male genitourinary: Present: normal - Integumentary Integumentary: Present: clear, warm, dry - Musculoskeletal Musculoskeletal: left sided weakness - Psychiatric Psychiatric: appropriate mood/affect, intact judgment & insight - Neurologic Neurologic: CNII-XII intact, moves all extremities, no gait normal Results - Lab Results 10/11/20 04:37 10/11/20 04:37 Most recent lab results Calcium 9.0 mg/dL (8.4-10.2) 10/11/20 04:37 Assessment and Plan # 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 Will monitor for renal replacement needs while inpatient, but does need outpatient follow up. - daily renal labs - strict Is/Os - add PTH given CKD, check urinalysis, UP/C - defer further serologic workup for now, will assess based on creatinine trend, urinalysis - renal friendly diet - no indication for biopsy or renal replacement therapy currently follow up ua, history of recurrent UTI # CVA: workup per primary, neuro. # HTN: BP high, goal per neuro s/p CVA.
--- NOTE | 2020-10-13 10:35 | Progress Note ---
Assessment and Plan Assessment and plan: --Acute CVA; with left-sided hemiparesis Dysarthria, dysphagia Aspirin and Plavix held in preparation for possible PEG placement --Dysphagia; failed swallow evaluation, GI has already evaluated the patient Possible PEG placement on 10/14/2020, patient's aspirin and Plavix are held in preparation --History of seizure disorder; Seizure precautions, continue antiepileptic medications, patient cannot drive --Chronic kidney disease/acute on chronic kidney disease; Vasomotor nephropathy, closely monitor renal function Avoid nephrotoxins, nephrology consult --Hypertension; moderate control Continue current antihypertensives and as needed medications --Dyslipidemia; statin --Ongoing tobacco use; smoking cessation counseling Nicotine patch as needed --DVT prophylaxis; SCDs --DC planning per case management Subacute rehab/SNF/acute rehab placement when stable We will closely monitor the patient and adjust management as needed Plan of care reviewed with the patient and his nurse 10/05: Patient remains very lethargic awaiting neurology work-up. No new findings of neurologic dysfunction was noted. Left-sided weakness is residual from prior. Reevaluate speech swallow when more awake. 10/06: Neurology input noted appears that the patient fell while trying to put his shoes on. Home health will be required at discharge probably with 24-hour aide or patient may need to be placed will consult case management. Continue antiplatelets and statin therapy at this time. No indication for MRI. As patient had a recent MRI study. We will also transferred to the medical floor 10/07: Speech re-eval, pt for placement assessment. Spoke to the daughter today who will like placement and also gave me more information that the patient 5 days prior to presentation had facial droop and was getting weaker. Will proceed with MRI study considering the delay in returning to baseline and with this new information. Also patients daughter due to work will not be able to provided 24 hr care at this time which is what this patient needs. Aspiration precautions. for now tolerating tube feed 10/09: Aspiration concerns, will obtain GI re-evluation for possible PEG as an alternative source of eating while the patient continues to improve. Keep HOB >45deg. 10/10: Hold plavix and Change asa to 81mg to allow for PEG placement. Begin PLACEMENT process. 10/11: Still with expressive aphasia will get speech therapy. Patient will benefit from [facility] facility prior authorization is in place. Patient also will benefit from an alternative source of nutrition as he is best unsteady with his current oral diet with high risk of aspiration. Due to recent Plavix t his will be done on 14 October. If SNF is obtained before that time it may be beneficial for patient to be discharged and come outpatient for this procedure. 10/12/20; GI has evaluated the patient possible PEG placement on 10/14/2020 if swallow test has no improvement, will try to place Dobbhoff for medications and feeds 10/13/20; nurses could not introduce Dobbhoff as patient was not cooperative, patient remains n.p.o., possible PEG placement tomorrow 10/14/2020 Aspirin and Plavix held for the procedure History Interval history: I have seen and examined the patient at the bedside this morning Patient's chart and medications reviewed Patient is confused, dysarthria, dysphagia Scheduled for PEG placement tomorrow per GI Patient is n.p.o. status Vital signs noted Hospitalist Physical - Constitutional Vitals: Temp Pulse Resp BP Pulse Ox 98.0 F 79 18 122/91 97 10/13/20 04:27 10/13/20 04:27 10/13/20 04:27 10/13/20 04:27 10/13/20 04:27 General appearance: Present: mild distress, obese, other (Dysarthria, dysphagia) - EENT Eyes: Present: PERRL, EOM intact - Neck Neck: Present: supple, normal ROM - Respiratory Respiratory effort: normal Respiratory: bilateral: diminished, negative: rales, rhonchi, wheezing - Cardiovascular Rhythm: regular Heart Sounds: Present: S1 & S2 - Extremities Extremities: no ischemia, No edema - Abdominal General gastrointestinal: soft, non-tender, non-distended, normal bowel sounds - Integumentary Integumentary: Present: clear, warm - Psychiatric Psychiatric: other (Acute CVA residual weakness) - Neurologic Neurologic: moves all extremities (Acute CVA residual left-sided weakness) HEART Score - HEART Score Troponin: Troponin T < 0.010 ng/mL (0.00-0.029) 10/04/20 15:39 Results - Labs CBC & Chem 7: 10/14/20 05:18 10/14/20 05:18 Labs: Laboratory Last Values WBC 3.1 K/mm3 (4.5-11.0) L 10/11/20 04:37 RBC 4.00 M/mm3 (3.65-5.03) 10/11/20 04:37 Hgb 12.6 gm/dl (11.8-15.2) 10/11/20 04:37 Hct 37.9 % (35.5-45.6) 10/11/20 04:37 MCV 95 fl (84-94) H 10/11/20 04:37 MCH 32 pg (28-32) 10/11/20 04:37 MCHC 33 % (32-34) 10/11/20 04:37 RDW 15.0 % (13.2-15.2) 10/11/20 04:37 Plt Count 148 K/mm3 (140-440) 10/11/20 04:37 Lymph % (Auto) 18.6 % (13.4-35.0) 10/04/20 15:39 [place] % (Auto) 10.7 % (0.0-7.3) H 10/04/20 15:39 Eos % (Auto) 6.6 % (0.0-4.3) H 10/04/20 15:39 Baso % (Auto) 0.7 % (0.0-1.8) 10/04/20 15:39 Lymph # (Auto) 1.3 K/mm3 (1.2-5.4) 10/04/20 15:39 [place] # (Auto) 0.7 K/mm3 (0.0-0.8) 10/04/20 15:39 Eos # (Auto) 0.5 K/mm3 (0.0-0.4) H 10/04/20 15:39 Baso # (Auto) 0.1 K/mm3 (0.0-0.1) 10/04/20 15:39 Seg Neutrophils % 63.4 % (40.0-70.0) 10/04/20 15:39 Seg Neutrophils # 4.4 K/mm3 (1.8-7.7) 10/04/20 15:39 PT 13.5 Sec. (12.2-14.9) 10/04/20 15:39 INR 1.01 (0.87-1.13) 10/04/20 15:39 APTT 29.2 Sec. (24.2-36.6) 10/04/20 15:39 Thrombin Time 15.2 Sec. (15.1-19.6) 10/04/20 15:39 Sodium 146 mmol/L (137-145) H 10/11/20 04:37 Potassium 3.9 mmol/L (3.6-5.0) 10/11/20 04:37 Chloride 111.0 mmol/L (98-107) H 10/11/20 04:37 Carbon Dioxide 26 mmol/L (22-30) 10/11/20 04:37 Anion Gap 13 mmol/L 10/11/20 04:37 BUN 30 mg/dL (9-20) H 10/11/20 04:37 Creatinine 2.6 mg/dL (0.8-1.3) H 10/11/20 04:37 Estimated GFR 31 ml/min 10/11/20 04:37 BUN/Creatinine Ratio 12 % 10/11/20 04:37 Glucose 118 mg/dL (75-100) H 10/11/20 04:37 POC Glucose 111 mg/dL (70-105) H 10/09/20 08:20 Calcium 9.0 mg/dL (8.4-10.2) 10/11/20 04:37 Troponin T < 0.010 ng/mL (0.00-0.029) 10/04/20 15:39 Triglycerides 51 mg/dL (2-149) 10/05/20 09:46 Cholesterol 115 mg/dL (50-199) 10/05/20 09:46 LDL Cholesterol Direct 56 mg/dL (50-130) 10/05/20 09:46 HDL Cholesterol 53 mg/dL (40-59) 10/05/20 09:46 Cholesterol/HDL Ratio 2.16 % 10/05/20 09:46 [place]/IV: Voiding Method Condom Catheter IV Catheter Type [Right Hand] Peripheral IV Active Medications - Current Medications Current Medications: Generic Name Dose Route Start Last Admin Trade Name Freq PRN Reason Stop Dose Admin Acetaminophen 650 mg 10/04/20 18:06 10/10/20 22:24 Tylenol PO 650 mg Q4H PRN Administration Pain, Mild (1-3) Amlodipine Besylate 10 mg 10/05/20 10:00 10/12/20 09:40 Amlodipine PO Not Given QDAY OSEI Lipase/Protease/Amylase 1 each 10/06/20 16:00 Pancreblaire Nogueira 10,500 Unit FEEDTUBE PRN PRN For Clogged Feeding Tube Atorvastatin Calcium 80 mg 10/04/20 22:00 10/12/20 22:52 Lipitor PO Not Given QHS [facility] Bicalutamide 50 mg 10/05/20 10:00 10/12/20 09:41 Casodex PO Not Given DAILY [facility] Bisacodyl 10 mg 10/04/20 18:06 Dulcolax [place] QDAY PRN Constipation Carvedilol 6.25 mg 10/04/20 22:00 10/12/20 22:52 Coreg PO Not Given BID [facility] Clonidine HCl 0.1 mg 10/04/20 22:00 10/13/20 05:43 Catapres PO Not Given Q8HR [facility] Hydralazine HCl 50 mg 10/04/20 22:00 10/13/20 05:43 Apresoline PO Not Given Q8HR [facility] Labetalol HCl 10 mg 10/05/20 22:20 Labetalol IV Q6HR PRN Blood Pressure Levetiracetam 500 mg 10/07/20 22:00 10/12/20 22:48 Keppra PO 500 mg BID [facility] Administration Magnesium Hydroxide 30 ml 10/04/20 18:06 Milk Of Magnesia PO Q4H PRN Constipation Metoclopramide HCl 10 mg 10/04/20 18:06 10/04/20 20:39 Reglan PO 10 mg Q6H PRN Administration Nausea And Vomiting Miscellaneous Medication 72 mcg 10/05/20 10:00 Linaclotide [Linzess] PO DAILY [facility] Ondansetron HCl 4 mg 10/04/20 18:06 10/11/20 18:21 Zofran IV 4 mg Q8H PRN Administration Nausea And Vomiting Promethazine HCl 25 mg 10/04/20 18:06 Phenergan [place] Q6H PRN Nausea And Vomiting Simple Syrup 15 ml 10/06/20 16:00 Simple Syrup FEEDTUBE PRN PRN Hypoglycemia Simple Syrup 30 ml 10/06/20 16:00 Simple Syrup FEEDTUBE PRN PRN Hypoglycemia Sodium Bicarbonate 650 mg 10/05/20 10:00 10/12/20 10:27 Sodium Bicarbonate PO Not Given DAILY [facility] Sodium Bicarbonate 325 mg 10/06/20 16:00 Sodium Bicarbonate FEEDTUBE PRN PRN For Clogged Feeding Tube Sodium Chloride 10 ml 10/04/20 18:06 10/11/20 21:53 Sodium Chloride Flush Syringe 10 Ml IV 10 ml PRN PRN Administration LINE FLUSH Nutrition/Malnutrition Assess - Dietary Evaluation Nutrition/Malnutrition Findings: Nutrition Notes Start: 10/06/20 15:15 Freq: Status: Active Protocol: Document 10/13/20 10:13 LM (Rec: 10/13/20 10:23 LM [email or web address]) Nutrition Notes Initial or Follow up Reassessment Current Diagnosis CKD(stage I-IV),Hypertension, Stroke Other Pertinent Diagnosis seizure disorder Current Diet NPO Labs/Tests No new labs Pertinent Medications Reviewed Height 6 ft 1 in Weight 109.9 kg [place] Body Weight (kg) 83.63 BMI 31.9 Weight change and time frame Wt change noted Weight Status Obese Subjective/Other Information Pt is now NPO. Per RN notes pt refused dobhoff reinsertion. Pt getting PEG tomorrow per chart. Percent of energy/protein needs met: 0%/0% Burn Absent Trauma Absent GI Symptoms None Difficulty In Swallowing Current % PO Negligible Minimum of two criteria Yes Energy Intake (severe) < or equal to 50% Estimated Energy Requirement > or equal to 5 days Interpretation of Weight Loss (severe) >2% in 1 week #2 Nutrition Diagnosis Malnutrition Etiology CVA, dysphagia As Evidenced by Signs and Symptoms Pt with <50% EER for >5 days, 4% wt loss in 1 week #1 Nutrition Diagnosis Inadequate oral intake As Evidenced by Signs and Symptoms Pt NPO Diagnosis Progress(for reassessment Worsened documentation) Is patient on ventilator? No Is Patient Ambulatory and/or Out of Bed No REE-([facility]-confined to bed) 2353.992 Kcal/Kg value to use for calculation 18 Approximate Energy Requirements Using 1978 kcal/Kg Calculation Used for Recommendations Kcal/kg Additional Notes Pro: 58-146g (0.6-1.5g/kg AdjBW 97kg) Fluid:1 ml/kcal or per Nutrition Intervention Change Diet Order: TF when medically feasible Nutrition Support: Osmolite 1.5 at 55 ml/hr Flush 260 ml q4h for hypernatremia Flush 160ml q4h once hypernatremia resolves Kcal 1,980 Protein (gm) 83 Fluid (mL) 1,006 Add Supplement/Snack (indicate name/kcal D/C /protein ) Goal #1 Start TF Anticipated Discharge Needs: TF Follow-Up By: 10/15/20 Additional Comments F/U for PEG placement, TF consult
[2020-10-13] MEDS: amLODIPine 10 MG TAB PO SCH (10:59)
[2020-10-13] MEDS: levETIRAcetam 500 MG/5 ML ORAL LIQD PO SCH ×2 (11:00→22:14)
[2020-10-13] MEDS: BICALUTAMIDE 50 MG TAB PO SCH (11:00)
[2020-10-13] MEDS: SODIUM BICARBONATE 650 MG TAB PO SCH (11:00)
[2020-10-13] MEDS: carvediloL 6.25 MG TAB PO SCH ×2 (11:00→22:14)
[2020-10-13 11:05] LABS: Bacteria,Urine 2+ /HPF (Negative); Bilirubin,Urine NEG (Negative); Blood,Urine NEG (Negative); Color,Urine Yellow (Yellow); Mucus,Urine FEW /HPF; Triple Phosphate Crystal,Urine 2+
--- NOTE | 2020-10-13 17:50 | Gastroenterology Progress Note ---
Assessment and Plan Dysphagia - acute/subacute CVA. - on plavix and ASA 325 mg. - previous h/o CVA. this is his 2nd CVA. - seen by speech and oropharyngeal dysphagia. - discussed with daughter on the phone regarding PEG tube. nature of the procedure and risks of potential complications, including bleeding, infection, perforation, and aspiration/sedation complication. - will plan for EGD/PEG tomorrow. Keep NPO MN. - Patient Problems (1) Dysphagia due to recent cerebrovascular accident (CVA) Current Visit: Yes Status: Acute Subjective Date of service: 10/13/20 Principal diagnosis: Acute CVA Interval history: no acute changes. No abdominal pain. Objective - Constitutional Vitals: Temp Pulse Resp BP Pulse Ox 98.2 F 65 18 136/83 97 10/13/20 11:33 10/13/20 11:33 10/13/20 11:33 10/13/20 11:33 10/13/20 11:33 General appearance: no acute distress - EENT ENT: hearing intact - Neck Neck: supple - Respiratory Respiratory effort: normal - Cardiovascular Rhythm: regular Heart Sounds: Present: S1 & S2 - Gastrointestinal General gastrointestinal: Present: soft, non-tender, non-distended - Integumentary Integumentary: Present: clear, warm - Labs CBC & Chem 7: 10/11/20 04:37 10/11/20 04:37 Labs: Laboratory Results - last 24 hr 10/13/20 10/13/20 10:23 10:23 Urine Color Yellow Urine Turbidity Cloudy Urine pH 9.0 H Ur Specific [place] 1.017 Urine Protein 100 mg/dl Urine Glucose (UA) Neg Urine Ketones Neg Urine Blood Neg Urine Nitrite Pos Urine Bilirubin Neg Urine Urobilinogen 2.0 Ur Leukocyte Esterase Lg Urine WBC (Auto) 20.0 H Urine RBC (Auto) 13.0 U Epithel Cells (Auto) 1.0 Urine Bacteria (Auto) 2+ Triple Phos Crystals 2+ Urine Mucus Few Urine Eosinophils None seen
[2020-10-14 05:35] LABS: Basophils % (Auto) 0.6 % (0.0-1.8); Eosinophils # (Auto) 0.3 K/mm3 (0.0-0.4); Eosinophils % (Auto) 5.1 % (0.0-4.3); Hematocrit 40.6 % (35.5-45.6); Hemoglobin 13.5 gm/dl (11.8-15.2); Lymphocytes % (Auto) 18.2 % (13.4-35.0); Mean Corpuscular HGB Conc 33 % (32-34); Mean Corpuscular Volume 93 fl (84-94); Monocytes # (Auto) 0.6 K/mm3 (0.0-0.8); Platelet Count 170 K/mm3 (140-440); Red Blood Count 4.35 M/mm3 (3.65-5.03); Red Cell Distribution Width 14.5 % (13.2-15.2)
[2020-10-14 06:16] LABS: Albumin 3.9 g/dL (3.9-5); Calcium 9.3 mg/dL (8.4-10.2)
[2020-10-14] MEDS ORDERED: WATER FOR IRRIG STERILE 1,000 ML BOTTLE ONE (07:02)
[2020-10-14] MEDS ORDERED: SODIUM CHLORIDE 0.9% 1000 ML 1,000 ML ONE (07:02)
[2020-10-14] MEDS ORDERED: WATER FOR IRRIG STERILE 250 ML BOTTLE IR ONE (07:02)
[2020-10-14] MEDS ORDERED: SODIUM CHLORIDE 0.9% 1000 ML 1,000 ML IV SCH (07:30)
[2020-10-14] MEDS ORDERED: ceFAZolin/Water 2 GM/20 ML 2 GM/20 ML SYRINGE IV NR (08:00)
--- NOTE | 2020-10-14 08:25 | Anesthesia Day of Surgery ---
Anesthesia Day of Surgery - Day of Surgery Patient Examined: Yes Patient H&P Reviewed: Yes Patient is NPO: Yes
--- NOTE | 2020-10-14 08:29 | Anesthesia Consultation ---
Anesthesia Consult and Med Hx Date of service: 10/14/20 - Airway Intubation Access Assessment: Probably Good (Unable to assess airway) - Pre-Operative Health Status ASA Pre-Surgery Classification: ASA3 Proposed Anesthetic Plan: MAC - Pulmonary Hx Smoking: Yes (1 pack/3 days) Hx Asthma: No COPD: No Hx Pneumonia: No - Cardiovascular System Hx Hypertension: Yes - Central Nervous System Hx Seizures: Yes (No meds) CVA: Yes (Acute; LHP; aphasic) - Endocrine Hx Renal Disease: Yes (WES on CKD) Hx End Stage Renal Disease: No
[2020-10-14] MEDS: hydrALAZINE 25 MG TAB PO SCH ×3 (08:47→21:00)
[2020-10-14] MEDS: cloNIDine 0.1 MG TAB PO SCH ×3 (08:47→21:00)
[2020-10-14] MEDS ORDERED: ONDANSETRON 4 MG/2 ML INJ ONE (09:10)
[2020-10-14] MEDS ORDERED: LIDOCAINE MPF (2%) 20 MG/1 ML VIAL 5 ML ONE (09:10)
[2020-10-14] MEDS ORDERED: fentaNYL 100 MCG/2 ML INJ ONE (09:10)
[2020-10-14] MEDS ORDERED: propofoL 200 MG/20 ML VIAL IV ONE ×2 (09:11→09:31)
--- NOTE | 2020-10-14 09:18 | Progress Note ---
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 Will monitor for renal replacement needs while inpatient, but does need outpatient follow up. - daily renal labs - strict Is/Os -cr is stable today - defer further serologic workup for now, will assess based on creatinine trend, urinalysis - renal friendly diet - no indication for biopsy or renal replacement therapy currently # UTI--follow up ua noted, history of recurrent UTI, add rocephin iv # CVA: workup per primary, neuro. #Hypernatremia--add 1/2 ns today # HTN: BP high, goal per neuro s/p CVA. Subjective Date of service: 10/14/20 Principal diagnosis: Acute CVA Interval history: resting in bed today Objective - Exam Narrative Exam: - Constitutional General appearance: Present: mild distress - EENT Eyes: Present: PERRL ENT: hearing intact, clear oral mucosa - Neck Neck: Present: supple, normal ROM - Respiratory Respiratory effort: normal Respiratory: bilateral: CTA - Cardiovascular Heart Sounds: Present: S1 & S2. Absent: rub, click - Extremities Extremities: pulses symmetrical, No edema Peripheral Pulses: within normal limits - Abdominal General gastrointestinal: Present: soft, non-tender, non-distended, normal bowel sounds Male genitourinary: Present: normal - Integumentary Integumentary: Present: clear, warm, dry - Musculoskeletal Musculoskeletal: left sided weakness - Psychiatric Psychiatric: appropriate mood/affect, intact judgment & insight - Neurologic Neurologic: CNII-XII intact, moves all extremities, no gait normal - Vital Signs Vital signs: Vital Signs - 12hr 10/13/20 10/14/20 10/14/20 23:52 03:00 03:49 Temperature 98.0 F 98.0 F Pulse Rate 90 84 81 Respiratory 18 18 Rate Blood Pressure 135/94 148/90 O2 Sat by Pulse 95 100 Oximetry - Lab 10/14/20 05:18 10/14/20 05:18 Most recent lab results Calcium 9.3 mg/dL (8.4-10.2) 10/14/20 05:18 Medications & Allergies - Medications Allergies/Adverse Reactions: Allergies No Known Allergies Allergy (Unverified 10/04/20 15:30) Home Medications: Home Medications Medication Instructions Recorded Confirmed Last Taken Type Rosuvastatin Calcium 10 mg PO QDAY 07/31/19 10/09/20 Unknown History carvediloL [Coreg] 6.25 mg PO BID 07/31/19 10/09/20 Unknown History Clopidogrel [Plavix] 75 mg PO QDAY #30 tablet 08/09/20 10/09/20 Unknown Rx Linaclotide [Linzess] 72 mcg PO DAILY #30 tab 08/09/20 10/09/20 Unknown Rx Sodium Bicarbonate 650 mg PO DAILY #60 tab 08/09/20 10/09/20 Unknown Rx amLODIPine 10 mg PO QDAY #30 tablet 08/09/20 10/09/20 Unknown Rx cloNIDine [Catapres] 0.1 mg PO Q8HR #90 tablet 08/09/20 10/09/20 Unknown Rx hydrALAZINE [Apresoline TAB] 50 mg PO Q8HR #90 tablet 08/09/20 10/09/20 Unknown Rx Gabapentin [Neurontin] 300 mg PO Q8HR 10/05/20 10/05/20 Unknown History Active Medications: Generic Name Dose Route Start Last Admin Trade Name Freq PRN Reason Stop Dose Admin Acetaminophen 650 mg 10/04/20 18:06 10/10/20 22:24 Tylenol PO 650 mg Q4H PRN Administration Pain, Mild (1-3) Amlodipine Besylate 10 mg 10/05/20 10:00 10/13/20 10:59 Amlodipine PO Not Given QDAY OSEI Lipase/Protease/Amylase 1 each 10/06/20 16:00 Pancreblaire Nogueira 10,500 Unit FEEDTUBE PRN PRN For Clogged Feeding Tube Atorvastatin Calcium 80 mg 10/04/20 22:00 10/13/20 22:14 Lipitor PO Not Given QHS [facility] Bicalutamide 50 mg 10/05/20 10:00 10/13/20 11:00 Casodex PO Not Given DAILY [facility] Bisacodyl 10 mg 10/04/20 18:[address] QDAY PRN Constipation Carvedilol 6.25 mg 10/04/20 22:00 10/13/20 22:14 Coreg PO Not Given BID [facility] Clonidine HCl 0.1 mg 10/04/20 22:00 10/14/20 08:47 Catapres PO Not Given Q8HR [facility] Hydralazine HCl 50 mg 10/04/20 22:00 10/14/20 08:47 Apresoline PO Not Given Q8HR [facility] Cefazolin Sodium 2 gm in 20 mls @ 80 mls/hr 10/14/20 08:00 Ancef/Sterile Water 2 Gm/20 Ml IV 10/14/20 21:00 PREOP NR Protocol Sodium Chloride 1,000 mls @ 75 mls/hr 10/14/20 10:00 Nacl 0.45% 1000 Ml IV DIRECT OSEI Labetalol HCl 10 mg 10/05/20 22:20 Labetalol IV Q6HR PRN Blood Pressure Levetiracetam 500 mg 10/07/20 22:00 10/13/20 22:14 Keppra PO Not Given BID [facility] Magnesium Hydroxide 30 ml 10/04/20 18:06 Milk Of Magnesia PO Q4H PRN Constipation Metoclopramide HCl 10 mg 10/04/20 18:06 10/04/20 20:39 Reglan PO 10 mg Q6H PRN Administration Nausea And Vomiting Miscellaneous Medication 72 mcg 10/05/20 10:00 Linaclotide [Linzess] PO DAILY [facility] Ondansetron HCl 4 mg 10/04/20 18:06 10/11/20 18:21 Zofran IV 4 mg Q8H PRN Administration Nausea And Vomiting Promethazine HCl 25 mg 10/04/20 18:[address] Q6H PRN Nausea And Vomiting Simple Syrup 15 ml 10/06/20 16:00 Simple Syrup FEEDTUBE PRN PRN Hypoglycemia Simple Syrup 30 ml 10/06/20 16:00 Simple Syrup FEEDTUBE PRN PRN Hypoglycemia Sodium Bicarbonate 650 mg 10/05/20 10:00 10/13/20 11:00 Sodium Bicarbonate PO Not Given DAILY [facility] Sodium Bicarbonate 325 mg 10/06/20 16:00 Sodium Bicarbonate FEEDTUBE PRN PRN For Clogged Feeding Tube Sodium Chloride 10 ml 10/04/20 18:06 10/11/20 21:53 Sodium Chloride Flush Syringe 10 Ml IV 10 ml PRN PRN Administration LINE FLUSH
--- NOTE | 2020-10-14 09:54 | Operative Report ---
Operative Report Operative Report: Date:10/14/2020 Pre procedure diagnosis:dysphagia Post procedure diagnosis:esophagitis, hiatal hernia, duodenitis Procedure: Esophagogastroduodenoscopy Endoscopist: Moose Schilling MD Medications: Per anesthesia- see separate records for details Complications:none Estimated blood loss: None After careful discussion of the nature and purpose of the procedure, details of the technique, risks, benefits and alternatives, the patient gave consent. The patient was placed in the left lateral decubitus position and medicated by anesthesia- see separate records for details. The tip of the olympus video upper scope was passed per orum under direct view through the mouth and into the esophagus, stomach and duodenum. The scope was advanced to the secondportion of the duodenum without difficulty. The second portion of the duodenumwasnormal. The bulb revealed erythematous edematous mucosa. The scope was withdrawn back into the stomach and the stomach gently insufflated with air. The antrum revealed mild erythematous mucosa. The scope was then retroflexed and partially withdrawn to inspect the proximal stomach. The cardia, fundus and body were normal. Multiple attempts were made to identify a suitable gastrostomy site by transillumination and percutaneous c ompression demonstrating good opposition of the stomach and abdominal wall but unsuccessful. The scope was then withdrawn in the forward view. The EG junction was at 38 cm. The distal esophagus revealed a small hiatal hernia and mild esophagitis.The proximal esophagus was normal. The procedure was well tolerated and the patient was observed in the GI recovery unit. IMPRESSION: 1. Distal esophagitis 2. Duodenitis in the bulb. 3. A small hiatal hernia. 4. Attempt for PEG placement unsuccessful due to inability to identify a suitable window for placement. Plan: 1. Resume previous diet. 2. Recommend consulting surgery for PEG tube placement. Discussed with Dr. Bañuelos with surgery. Updated family on the phone.
--- NOTE | 2020-10-14 10:12 | Post Anesthesia Evaluation ---
- Post Anesthesia Evaluation Patient Participated: Yes Airway Patent: Yes Stable Respiratory Function: Yes Nausea/Vomiting: No Temp > 96.8F: Yes Pain Manageable: Yes Adequeate Hydration: Yes Anesthesia Complications: No Block Receding Appropriately: Not Applicable Patient on Ventilator: No
[2020-10-14] MEDS: BICALUTAMIDE 50 MG TAB PO SCH (10:36)
[2020-10-14] MEDS: amLODIPine 10 MG TAB PO SCH (10:36)
[2020-10-14] MEDS: SODIUM BICARBONATE 650 MG TAB PO SCH (10:37)
[2020-10-14] MEDS: levETIRAcetam 500 MG/5 ML ORAL LIQD PO SCH ×2 (10:37→21:00)
[2020-10-14] MEDS: carvediloL 6.25 MG TAB PO SCH ×2 (10:37→21:00)
[2020-10-14] MEDS: cefTRIAXone/NS 1 GM/50 ML 1 GM/50 ML BAG IV SCH (10:57)
--- NOTE | 2020-10-14 15:03 | Cat Scan Report ---
CT abdomen pelvis wo con INDICATION: preop for G tube placement. TECHNIQUE: All CT scans at this location are performed using the following dose modulation technique: Automated exposure control. Helical slices were obtained through the abdomen and pelvis. No contrast is adminis tered. COMPARISON: None available. FINDINGS: Abdomen: No acute abnormality is seen in the chest. There is a small hiatal hernia. There are gallstones in the gallbladder. The liver, spleen, pancreas, adrenal glands, and kidneys mario w no acute abnormality. Atherosclerotic calcifications are noted in the aorta, mesenteric vessels, re nal arteries iliac arteries. The aorta is normal in diameter. The appendix is unremarkable. There is barium in the colon the patient's barium swallow performed on 10/08/2020 Pelvis: There is no obstruction or inflammation. There are no abnormal fluid collections. There is no adenopathy. On review of bone windows, no acute osseous abnormalities are seen. Degenerative changes are noted in the hips. IMPRESSION: 1. There is no obstruction, inflammation, or free air. There are no abnormal fluid collections. There is a small hiatal hernia. Atherosclerotic calcifications are noted in the abdomen and pelvis. Signer Name: Kendall Narayan MD Signed: 10/14/2020 2:58 PM Workstation Name: [id number]
--- NOTE | 2020-10-14 16:42 | Consultation ---
History of Present Illness Consult date: 10/14/20 Chief complaint: Dysphagia - History of present illness History of present illness: 60-year-old male with past medical history of hypertension, CVA, seizure disorder who presented to the emergency room on 10/04/2020 for evaluation. Apparently the patient was found down on the floor with altered mental status by his daughter. It was determined that he had a neurologic deficit and was in distress and therefore EMS was called and stroke protocol initiated. Patient continues to have altered mental status and therefore all of the history is obtained from the chart. He has not been able to tolerate enough p.o. to maintain adequate nutrition. He was seen by speech therapy and was found to have dysphagia. GI was consulted for PEG tube placement however a safe location for PEG tube could not be determined based on transillumination and therefore the procedure was not completed. Surgery is consulted for further evaluation, surgically placed G-tube. Per nursing the patient is constantly spitting his saliva. An NG tube is not able to be placed as patient refuses to swallow. He is afebrile. Past History Past Medical History: hypertension, renal failure, seizures, stroke Past Surgical History: No surgical history, Other (Reviewed) Social history: , lives with family Family history: hypertension Medications and Allergies Allergies Allergy/AdvReac Type Severity Reaction Status Date / Time No Known Allergies Allergy Unverified 10/04/20 15:30 Home Medications Medication Instructions Recorded Confirmed Last Taken Type Rosuvastatin Calcium 10 mg PO QDAY 07/31/19 10/09/20 Unknown History carvediloL [Coreg] 6.25 mg PO BID 07/31/19 10/09/20 Unknown History Clopidogrel [Plavix] 75 mg PO QDAY #30 tablet 08/09/20 10/09/20 Unknown Rx Linaclotide [Linzess] 72 mcg PO DAILY #30 tab 08/09/20 10/09/20 Unknown Rx Sodium Bicarbonate 650 mg PO DAILY #60 tab 08/09/20 10/09/20 Unknown Rx amLODIPine 10 mg PO QDAY #30 tablet 08/09/20 10/09/20 Unknown Rx cloNIDine [Catapres] 0.1 mg PO Q8HR #90 tablet 08/09/20 10/09/20 Unknown Rx hydrALAZINE [Apresoline TAB] 50 mg PO Q8HR #90 tablet 08/09/20 10/09/20 Unknown Rx Gabapentin [Neurontin] 300 mg PO Q8HR 10/05/20 10/05/20 Unknown History Active Meds: Active Medications Acetaminophen (Tylenol) 650 mg PO Q4H PRN PRN Reason: Pain, Mild (1-3) Last Admin: 10/10/20 22:24 Dose: 650 mg Documented by: Amlodipine Besylate (Amlodipine) 10 mg PO QDAY [facility] Last Admin: 10/14/20 10:36 Dose: Not Given Documented by: Lipase/Protease/Amylase (Josie Nogueira 10,500 Unit) 1 each FEEDTUBE PRN PRN PRN Reason: For Clogged Feeding Tube Atorvastatin Calcium (Lipitor) 80 mg PO QHS [facility] Last Admin: 10/13/20 22:14 Dose: Not Given Documented by: Bicalutamide (Casodex) 50 mg PO DAILY [facility] Last Admin: 10/14/20 10:36 Dose: Not Given Documented by: Bisacodyl (Dulcolax) 10 mg NV QDAY PRN PRN Reason: Constipation Carvedilol (Coreg) 6.25 mg PO BID [facility] Last Admin: 10/14/20 10:37 Dose: Not Given Documented by: Clonidine HCl (Catapres) 0.1 mg PO Q8HR [facility] Last Admin: 10/14/20 14:36 Dose: Not Given Documented by: Hydralazine HCl (Apresoline) 50 mg PO Q8HR [facility] Last Admin: 10/14/20 14:36 Dose: Not Given Documented by: Cefazolin Sodium (Ancef/Sterile Water 2 Gm/20 Ml) 2 gm in 20 mls @ 80 mls/hr IV PREOP NR; Protocol Stop: 10/14/20 21:00 Sodium Chloride (Nacl 0.45% 1000 Ml) 1,000 mls @ 75 mls/hr IV DIRECT OSEI Ceftriaxone Sodium (Rocephin/Ns 1 Gm/50 Ml) 1 gm in 50 mls @ 100 mls/hr IV Q24HR OSEI; Protocol Stop: 10/18/20 09:59 Last Admin: 10/14/20 10:57 Dose: 100 mls/hr Documented by: Labetalol HCl (Labetalol) 10 mg IV Q6HR PRN PRN Reason: Blood Pressure Levetiracetam (Keppra) 500 mg PO BID [facility] Last Admin: 10/14/20 10:37 Dose: Not Given Documented by: Magnesium Hydroxide (Milk Of Magnesia) 30 ml PO Q4H PRN PRN Reason: Constipation Metoclopramide HCl (Reglan) 10 mg PO Q6H PRN PRN Reason: Nausea And Vomiting Last Admin: 10/04/20 20:39 Dose: 10 mg Documented by: Miscellaneous Medication (Linaclotide [Linzess]) 72 mcg PO DAILY [facility] Ondansetron HCl (Zofran) 4 mg IV Q8H PRN PRN Reason: Nausea And Vomiting Last Admin: 10/11/20 18:21 Dose: 4 mg Documented by: Promethazine HCl (Phenergan) 25 mg NV Q6H PRN PRN Reason: Nausea And Vomiting Simple Syrup (Simple Syrup) 15 ml FEEDTUBE PRN PRN PRN Reason: Hypoglycemia Simple Syrup (Simple Syrup) 30 ml FEEDTUBE PRN PRN PRN Reason: Hypoglycemia Sodium Bicarbonate (Sodium Bicarbonate) 650 mg PO DAILY [facility] Last Admin: 10/14/20 10:37 Dose: Not Given Documented by: Sodium Bicarbonate (Sodium Bicarbonate) 325 mg FEEDTUBE PRN PRN PRN Reason: For Clogged Feeding Tube Sodium Chloride (Sodium Chloride Flush Syringe 10 Ml) 10 ml IV PRN PRN PRN Reason: LINE FLUSH Last Admin: 10/11/20 21:53 Dose: 10 ml Documented by: Review of Systems ROS unobtainable: due to mental status Exam Vital Signs Temp Pulse Resp BP Pulse Ox 98.0 F 82 13 169/101 99 10/04/20 15:50 10/04/20 15:50 10/04/20 15:50 10/04/20 15:50 10/04/20 15:50 Narrative exam: Gen.: Awake, appears lethargic, responds to his name but does not speak or answering questions ENT: Trachea midline. No lymphadenopathy. No scleral icterus or conjunctival pallor CV: S1, S2 present Respiratory: No audible wheezes Abdomen: Soft, nondistended, nontender, protuberant. No rebound, rigidity, guarding Extremities: No clubbing, cyanosis, edema Results - Labs 10/14/20 05:18 10/14/20 05:18 Abnormal lab results 10/14/20 10/14/20 Range/Units 05:18 05:18 [place] % (Auto) 12.0 H (0.0-7.3) % Eos % (Auto) 5.1 H (0.0-4.3) % Lymph # (Auto) 1.0 L (1.2-5.4) K/mm3 Sodium 151 H (137-145) mmol/L Chloride 115.3 H (98-107) mmol/L BUN 38 H (9-20) mg/dL Creatinine 2.4 H (0.8-1.3) mg/dL Glucose 105 H (75-100) mg/dL Alkaline Phosphatase 132 H (35-129) units/L Diabetes panel 10/14/20 Range/Units 05:18 Sodium 151 H (137-145) mmol/L Potassium 4.2 (3.6-5.0) mmol/L Chloride 115.3 H (98-107) mmol/L Carbon Dioxide 24 (22-30) mmol/L BUN 38 H (9-20) mg/dL Creatinine 2.4 H (0.8-1.3) mg/dL Glucose 105 H (75-100) mg/dL Calcium 9.3 (8.4-10.2) mg/dL AST 28 (5-40) units/L ALT 20 (7-56) units/L Alkaline Phosphatase 132 H (35-129) units/L Total Protein 8.0 (6.3-8.2) g/dL Albumin 3.9 (3.9-5) g/dL Calcium panel 10/14/20 Range/Units 05:18 Calcium 9.3 (8.4-10.2) mg/dL Albumin 3.9 (3.9-5) g/dL Pituitary panel 10/14/20 Range/Units 05:18 Sodium 151 H (137-145) mmol/L Potassium 4.2 (3.6-5.0) mmol/L Chloride 115.3 H (98-107) mmol/L Carbon Dioxide 24 (22-30) mmol/L BUN 38 H (9-20) mg/dL Creatinine 2.4 H (0.8-1.3) mg/dL Glucose 105 H (75-100) mg/dL Calcium 9.3 (8.4-10.2) mg/dL Adrenal panel 10/14/20 Range/Units 05:18 Sodium 151 H (137-145) mmol/L Potassium 4.2 (3.6-5.0) mmol/L Chloride 115.3 H (98-107) mmol/L Carbon Dioxide 24 (22-30) mmol/L BUN 38 H (9-20) mg/dL Creatinine 2.4 H (0.8-1.3) mg/dL Glucose 105 H (75-100) mg/dL Calcium 9.3 (8.4-10.2) mg/dL Total Bilirubin 1.20 (0.1-1.2) mg/dL AST 28 (5-40) units/L ALT 20 (7-56) units/L Alkaline Phosphatase 132 H (35-129) units/L Total Protein 8.0 (6.3-8.2) g/dL Albumin 3.9 (3.9-5) g/dL - Imaging CT scan - abdomen: report reviewed, image reviewed CT scan - pelvis: report reviewed, image reviewed Assessment and Plan 60 yo M with 1. dysphagia 2. CVA 3. COVID negative s/p EGD, unable to place PEG due to anatomy Ct scan A/P - stomach in LUQ/midline, L colon adjacent to stomach in LUQ. Small hiatal hernia. No acute findings Plan: 1. NPO 2. IVF 3. continue to hold plavix 4. Plan for Lap assisted PEG tube placement, possible open G tube, EGD tomorrow 10/15 afternoon. Discussed with patient's daughter. All risk and benefits, alternatives to the procedure were discussed along with indication. All questions were answered and consent obtained. Thank you for this consultation. Please call with any questions or concerns. Evaluation and treatment of this patient was during the time of the national and state emergency arising from COVID19 coronavirus pandemic. Treatment and procedures performed meet the current and available best practice and guidelines for patient during the COVID pandemic.
[2020-10-14] MEDS: SODIUM CHLORIDE 0.45% 1000 ML 1,000 ML IV SCH (18:36)
--- NOTE | 2020-10-14 20:06 | Progress Note ---
Assessment and Plan Assessment and plan: --Acute CVA; with left-sided hemiparesis Dysarthria, dysphagia Aspirin and Plavix held in preparation for possible PEG placement --Dysphagia; failed swallow evaluation, GI attempted EGD for possible PEG p lacement Unable to do endoscopically, surgery consulted For surgical placement of feeding tube Discussed with , scheduled for tomorrow --History of seizure disorder; Seizure precautions, continue antiepileptic medications, patient cannot drive --Chronic kidney disease/acute on chronic kidney disease; Vasomotor nephropathy, mild improvement Avoid nephrotoxins, nephrology following --Hypertension; moderate control Continue current antihypertensives and as needed medications --Dyslipidemia; statin --Ongoing tobacco use; smoking cessation counseling Nicotine patch as needed --DVT prophylaxis; SCDs --DC planning per case management Subacute rehab/SNF/acute rehab placement when stable We will closely monitor the patient and adjust management as needed Plan of care reviewed with the patient and his nurse N.p.o. status for possible surgical placement of feeding tube tomorrow 10/05: Patient remains very lethargic awaiting neurology work-up. No new findings of neurologic dysfunction was noted. Left-sided weakness is residual from prior. Reevaluate speech swallow when more awake. 10/06: Neurology input noted appears that the patient fell while trying to put his shoes on. Home health will be required at discharge probably with 24-hour aide or patient may need to be placed will consult case management. Continue antiplatelets and statin therapy at this time. No indication for MRI. As patient had a recent MRI study. We will also transferred to the medical floor 10/07: Speech re-eval, pt for placement assessment. Spoke to the daughter today who will like placement and also gave me more information that the patient 5 days prior to presentation had facial droop and was getting weaker. Will proceed with MRI study considering the delay in returning to baseline and with this new information. Also patients daughter due to work will not be able to provided 24 hr care at this time which is what this patient needs. Aspiration precautions. for now tolerating tube feed 10/09: Aspiration concerns, will obtain GI re-evluation for possible PEG as an alternative source of eating while the patient continues to improve. Keep HOB >45deg. 10/10: Hold plavix and Change asa to 81mg to allow for PEG placement. Begin PLACEMENT process. 10/11: Still with expressive aphasia will get speech therapy. Patient will benefit from [facility] facility prior authorization is in place. Patient also will benefit from an alternative source of nutrition as he is best unsteady with his current oral diet with high risk of aspiration. Due to recent Plavix this will be done on 14 October. If SNF is obtained before that time it may be beneficial for patient to be discharged and come outpatient for this procedure. 10/12/ 10/12/20; GI has evaluated the patient possible PEG placement on 10/14/2020 if swallow test has no improvement, will try to place Dobbhoff for medications and feeds 10/13/20; nurses could not introduce Dobbhoff as patient was not cooperative, patient remains n.p.o., possible PEG placement tomorrow 10/14/2020 Aspirin and Plavix held for the procedure 10/14/20; unable to achieve endoscopic PEG placement, surgery consulted, unable to pass Dobbhoff, n.p.o. status History Interval history: I have seen and examined the patient at the bedside Patient's chart and medications reviewed Patient was taken to GI suite for possible PEG placement However unsuccessful, GI recommend surgery consult and surgical placement of feeding tube Unable to pass Dobbhoff Patient remains n.p.o. status Vital signs noted Hospitalist Physical - Constitutional Vitals: Temp Pulse Resp BP Pulse Ox 98.9 F 98 H 20 130/87 97 10/14/20 15:47 10/14/20 18:02 10/14/20 15:47 10/14/20 18:02 10/14/20 18:02 General appearance: Present: mild distress, obese, other (Dysarthria, dysphagia) - EENT Eyes: Present: PERRL, EOM intact - Neck Neck: Present: supple, normal ROM - Respiratory Respiratory effort: normal Respiratory: bilateral: diminished, negative: rales, rhonchi, wheezing - Cardiovascular Rhythm: regular Heart Sounds: Present: S1 & S2 - Extremities Extremities: no ischemia, No edema - Abdominal General gastrointestinal: soft, non-tender, non-distended, normal bowel sounds - Integumentary Integumentary: Present: clear, warm - Psychiatric Psychiatric: other (Dysarthria) - Neurologic Neurologic: moves all extremities (CVA with residual weakness) HEART Score - HEART Score Troponin: Troponin T < 0.010 ng/mL (0.00-0.029) 10/04/20 15:39 Results - Labs CBC & Chem 7: 10/14/20 05:18 10/14/20 05:18 Labs: Laboratory Last Values WBC 5.4 K/mm3 (4.5-11.0) 10/14/20 05:18 RBC 4.35 M/mm3 (3.65-5.03) 10/14/20 05:18 Hgb 13.5 gm/dl (11.8-15.2) 10/14/20 05:18 Hct 40.6 % (35.5-45.6) 10/14/20 05:18 MCV 93 fl (84-94) 10/14/20 05:18 MCH 31 pg (28-32) 10/14/20 05:18 MCHC 33 % (32-34) 10/14/20 05:18 RDW 14.5 % (13.2-15.2) 10/14/20 05:18 Plt Count 170 K/mm3 (140-440) 10/14/20 05:18 Lymph % (Auto) 18.2 % (13.4-35.0) 10/14/20 05:18 [place] % (Auto) 12.0 % (0.0-7.3) H 10/14/20 05:18 Eos % (Auto) 5.1 % (0.0-4.3) H 10/14/20 05:18 Baso % (Auto) 0.6 % (0.0-1.8) 10/14/20 05:18 Lymph # (Auto) 1.0 K/mm3 (1.2-5.4) L 10/14/20 05:18 [place] # (Auto) 0.6 K/mm3 (0.0-0.8) 10/14/20 05:18 Eos # (Auto) 0.3 K/mm3 (0.0-0.4) 10/14/20 05:18 Baso # (Auto) 0.0 K/mm3 (0.0-0.1) 10/14/20 05:18 Seg Neutrophils % 64.1 % (40.0-70.0) 10/14/20 05:18 Seg Neutrophils # 3.4 K/mm3 (1.8-7.7) 10/14/20 05:18 PT 13.5 Sec. (12.2-14.9) 10/04/20 15:39 INR 1.01 (0.87-1.13) 10/04/20 15:39 APTT 29.2 Sec. (24.2-36.6) 10/04/20 15:39 Thrombin Time 15.2 Sec. (15.1-19.6) 10/04/20 15:39 Sodium 151 mmol/L (137-145) H 10/14/20 05:18 Potassium 4.2 mmol/L (3.6-5.0) 10/14/20 05:18 Chloride 115.3 mmol/L (98-107) H 10/14/20 05:18 Carbon Dioxide 24 mmol/L (22-30) 10/14/20 05:18 Anion Gap 16 mmol/L 10/14/20 05:18 BUN 38 mg/dL (9-20) H 10/14/20 05:18 Creatinine 2.4 mg/dL (0.8-1.3) H 10/14/20 05:18 Estimated GFR 33 ml/min 10/14/20 05:18 BUN/Creatinine Ratio 16 % 10/14/20 05:18 Glucose 105 mg/dL (75-100) H 10/14/20 05:18 POC Glucose 111 mg/dL (70-105) H 10/09/20 08:20 Calcium 9.3 mg/dL (8.4-10.2) 10/14/20 05:18 Total Bilirubin 1.20 mg/dL (0.1-1.2) 10/14/20 05:18 AST 28 units/L (5-40) 10/14/20 05:18 ALT 20 units/L (7-56) 10/14/20 05:18 Alkaline Phosphatase 132 units/L (35-129) H 10/14/20 05:18 Troponin T < 0.010 ng/mL (0.00-0.029) 10/04/20 15:39 Total Protein 8.0 g/dL (6.3-8.2) 10/14/20 05:18 Albumin 3.9 g/dL (3.9-5) 10/14/20 05:18 Albumin/Globulin Ratio 1.0 % 11/19/20 05:18 Triglycerides 51 mg/dL (2-149) 10/05/20 09:46 Cholesterol 115 mg/dL (50-199) 10/05/20 09:46 LDL Cholesterol Direct 56 mg/dL (50-130) 10/05/20 09:46 HDL Cholesterol 53 mg/dL (40-59) 10/05/20 09:46 Cholesterol/HDL Ratio 2.16 % 10/05/20 09:46 Urine Color Yellow (Yellow) 10/13/20 10:23 Urine Turbidity Cloudy (Clear) 10/13/20 10:23 Urine pH 9.0 (5.0-7.0) H 10/13/20 10:23 Ur Specific [place] 1.017 (1.003-1.030) 10/13/20 10:23 Urine Protein 100 mg/dl mg/dL (Negative) 10/13/20 10:23 Urine Glucose (UA) Neg mg/dL (Negative) 10/13/20 10:23 Urine Ketones Neg mg/dL (Negative) 10/13/20 10:23 Urine Blood Neg (Negative) 10/13/20 10:23 Urine Nitrite Pos (Negative) 10/13/20 10:23 Urine Bilirubin Neg (Negative) 10/13/20 10:23 Urine Urobilinogen 2.0 mg/dL (<2.0) 10/13/20 10:23 Ur Leukocyte Esterase Lg (Negative) 10/13/20 10:23 Urine WBC (Auto) 20.0 /HPF (0.0-6.0) H 10/13/20 10:23 Urine RBC (Auto) 13.0 /HPF (0.0-6.0) 10/13/20 10:23 U Epithel Cells (Auto) 1.0 /HPF (0-13.0) 10/13/20 10:23 Urine Bacteria (Auto) 2+ /HPF (Negative) 10/13/20 10:23 Triple Phos Crystals 2+ 10/13/20 10:23 Urine Mucus Few /HPF 10/13/20 10:23 Urine Eosinophils None seen (None Seen) 10/13/20 10:23 Coronavirus (PCR) Negative (Negative) 10/14/20 Unknown Microbiology: Microbiology 10/13/20 10:23 Urine,Clean Catch Urine Culture - Preliminary [place]/IV: Voiding Method Condom Catheter IV Catheter Type [Right Hand] Peripheral IV Active Medications - Current Medications Current Medications: Generic Name Dose Route Start Last Admin Trade Name Freq PRN Reason Stop Dose Admin Acetaminophen 650 mg 10/04/20 18:06 10/10/20 22:24 Tylenol PO 650 mg Q4H PRN Administration Pain, Mild (1-3) Amlodipine Besylate 10 mg 10/05/20 10:00 10/14/20 10:36 Amlodipine PO Not Given QDAY OSEI Lipase/Protease/Amylase 1 each 10/06/20 16:00 [place] 10,500 Unit FEEDTUBE PRN PRN For Clogged Feeding Tube Atorvastatin Calcium 80 mg 10/04/20 22:00 10/13/20 22:14 Lipitor PO Not Given QHS [facility] Bicalutamide 50 mg 10/05/20 10:00 10/14/20 10:36 Casodex PO Not Given DAILY OSEI Bisacodyl 10 mg 10/04/20 18:06 Dulcolax PA QDAY PRN Constipation Carvedilol 6.25 mg 10/04/20 22:00 10/14/20 10:37 Coreg PO Not Given BID OSEI Clonidine HCl 0.1 mg 10/04/20 22:00 10/14/20 14:36 Catapres PO Not Given Q8HR OSEI Hydralazine HCl 50 mg 10/04/20 22:00 10/14/20 14:36 Apresoline PO Not Given Q8HR [facility] Sodium Chloride 1,000 mls @ 75 mls/hr 10/14/20 10:00 10/14/20 18:36 Nacl 0.45% 1000 Ml IV 75 mls/hr DIRECT OSEI Administration Ceftriaxone Sodium 1 gm in 50 mls @ 100 mls/hr 10/14/20 10:00 10/14/20 10:57 Rocephin/Ns 1 Gm/50 Ml IV 10/18/20 09:59 100 mls/hr Q24HR OSEI Administration Protocol Cefazolin Sodium 2 gm in 20 mls @ 80 mls/hr 10/15/20 06:00 Ancef/Sterile Water 2 Gm/20 Ml IV 10/15/20 23:59 PREOP NR Protocol Labetalol HCl 10 mg 10/05/20 22:20 10/14/20 17:00 Labetalol IV 10 mg Q6HR PRN Administration Blood Pressure Levetiracetam 500 mg 10/07/20 22:00 10/14/20 10:37 Keppra PO Not Given BID OSEI Magnesium Hydroxide 30 ml 10/04/20 18:06 Milk Of Magnesia PO Q4H PRN Constipation Metoclopramide HCl 10 mg 10/04/20 18:06 10/04/20 20:39 Reglan PO 10 mg Q6H PRN Administration Nausea And Vomiting Miscellaneous Medication 72 mcg 10/05/20 10:00 Linaclotide [Linzess] PO DAILY OSEI Ondansetron HCl 4 mg 10/04/20 18:06 10/11/20 18:21 Zofran IV 4 mg Q8H PRN Administration Nausea And Vomiting Promethazine HCl 25 mg 10/04/20 18:06 Phenergan PA Q6H PRN Nausea And Vomiting Simple Syrup 15 ml 10/06/20 16:00 Simple Syrup FEEDTUBE PRN PRN Hypoglycemia Simple Syrup 30 ml 10/06/20 16:00 Simple Syrup FEEDTUBE PRN PRN Hypoglycemia Sodium Bicarbonate 650 mg 10/05/20 10:00 10/14/20 10:37 Sodium Bicarbonate PO Not Given DAILY [facility] Sodium Bicarbonate 325 mg 10/06/20 16:00 Sodium Bicarbonate FEEDTUBE PRN PRN For Clogged Feeding Tube Sodium Chloride 10 ml 10/04/20 18:06 10/11/20 21:53 Sodium Chloride Flush Syringe 10 Ml IV 10 ml PRN PRN Administration LINE FLUSH Nutrition/Malnutrition Assess - Dietary Evaluation Nutrition/Malnutrition Findings: Nutrition Notes Start: 10/06/20 15:15 Freq: Status: Active Protocol: Document 10/13/20 10:13 LM (Rec: 10/13/20 10:23 LM [id number]) Nutrition Notes Initial or Follow up Reassessment Current Diagnosis CKD(stage I-IV),Hypertension, Stroke Other Pertinent Diagnosis seizure disorder Current Diet NPO Labs/Tests No new labs Pertinent Medications Reviewed Height 6 ft 1 in Weight 109.9 kg [place] Body Weight (kg) 83.63 BMI 31.9 Weight change and time frame Wt change noted Weight Status Obese Subjective/Other Information Pt is now NPO. Per RN notes pt refused dobhoff reinsertion. Pt getting PEG tomorrow per chart. Percent of energy/protein needs met: 0%/0% Burn Absent Trauma Absent GI Symptoms None Difficulty In Swallowing Current % PO Negligible Minimum of two criteria Yes Energy Intake (severe) < or equal to 50% Estimated Energy Requirement > or equal to 5 days Interpretation of Weight Loss (severe) >2% in 1 week #2 Nutrition Diagnosis Malnutrition Etiology CVA, dysphagia As Evidenced by Signs and Symptoms Pt with <50% EER for >5 days, 4% wt loss in 1 week #1 Nutrition Diagnosis Inadequate oral intake As Evidenced by Signs and Symptoms Pt NPO Diagnosis Progress(for reassessment Worsened documentation) Is patient on ventilator? No Is Patient Ambulatory and/or Out of Bed No [facility] 2353.992 Kcal/Kg value to use for calculation 18 Approximate Energy Requirements Using 1978 kcal/Kg Calculation Used for Recommendations Kcal/kg Additional Notes Pro: 58-146g (0.6-1.5g/kg AdjBW 97kg) Fluid:1 ml/kcal or per MD Nutrition Intervention Change Diet Order: TF when medically feasible Nutrition Support: Osmolite 1.5 at 55 ml/hr Flush 260 ml q4h for hypernatremia Flush 160ml q4h once hypernatremia resolves Kcal 1,980 Protein (gm) 83 Fluid (mL) 1,006 Add Supplement/Snack (indicate name/kcal D/C /protein ) Goal #1 Start TF Anticipated Discharge Needs: TF Follow-Up By: 10/15/20 Additional Comments F/U for PEG placement, TF consult
[2020-10-15] MEDS ORDERED: LIDOCAINE (1%) 10 MG/1 ML VIAL 20 ML MDV INFILTRATI ONE
[2020-10-15] MEDS ORDERED: ceFAZolin/Water 2 GM/20 ML 2 GM/20 ML SYRINGE IV NR (06:00)
[2020-10-15 06:08] LABS: Albumin 3.9 g/dL (3.9-5); Calcium 9.1 mg/dL (8.4-10.2)
[2020-10-15] MEDS: SODIUM CHLORIDE 0.45% 1000 ML 1,000 ML IV SCH (06:45)
[2020-10-15] MEDS: hydrALAZINE 25 MG TAB PO SCH ×3 (06:47→21:36)
[2020-10-15] MEDS: cloNIDine 0.1 MG TAB PO SCH ×3 (06:48→21:36)
[2020-10-15] MEDS: cefTRIAXone/NS 1 GM/50 ML 1 GM/50 ML BAG IV SCH (09:45)
[2020-10-15] MEDS: BICALUTAMIDE 50 MG TAB PO SCH (09:52)
[2020-10-15] MEDS: amLODIPine 10 MG TAB PO SCH (09:52)
[2020-10-15] MEDS: levETIRAcetam 500 MG/5 ML ORAL LIQD PO SCH ×2 (09:52→21:43)
[2020-10-15] MEDS: SODIUM BICARBONATE 650 MG TAB PO SCH (09:52)
[2020-10-15] MEDS: carvediloL 6.25 MG TAB PO SCH ×2 (09:52→21:36)
[2020-10-15] MEDS ORDERED: LIDOCAINE (1%) 10 MG/1 ML VIAL 20 ML MDV ONE (12:37)
[2020-10-15] MEDS ORDERED: BUPIVACAINE/PF (0.5%) 5 MG/1 ML 30 ML VIAL INFILTRATI ONE (12:37)
[2020-10-15] MEDS ORDERED: propofoL 200 MG/20 ML VIAL IV ONE (12:46)
--- NOTE | 2020-10-15 12:52 | Progress Note ---
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 Will monitor for renal replacement needs while inpatient, but does need outpatient follow up. - daily renal labs - strict Is/Os -cr is stable today - defer further serologic workup for now, will assess based on creatinine trend, urinalysis - renal friendly diet - no indication for biopsy or renal replacement therapy currently # UTI--follow up ua noted, history of recurrent UTI, added rocephin iv # CVA: workup per primary, neuro. #Hypernatremia--add D5W, needs free h20, peg placement per surgery and GI # HTN: BP high, goal per neuro s/p CVA. Subjective Date of service: 10/15/20 Principal diagnosis: Acute CVA Interval history: resting in bed today Objective - Exam Narrative Exam: - Constitutional General appearance: Present: mild distress - EENT Eyes: Present: PERRL ENT: hearing intact, clear oral mucosa - Neck Neck: Present: supple, normal ROM - Respiratory Respiratory effort: normal Respiratory: bilateral: CTA - Cardiovascular Heart Sounds: Present: S1 & S2. Absent: rub, click - Extremities Extremities: pulses symmetrical, No edema Peripheral Pulses: within normal limits - Abdominal General gastrointestinal: Present: soft, non-tender, non-distended, normal bowel sounds Male genitourinary: Present: normal - Integumentary Integumentary: Present: clear, warm, dry - Musculoskeletal Musculoskeletal: left sided weakness - Psychiatric Psychiatric: appropriate mood/affect, intact judgment & insight - Neurologic Neurologic: CNII-XII intact, moves all extremities, no gait normal - Vital Signs Vital signs: Vital Signs - 12hr 10/15/20 10/15/20 10/15/20 04:57 08:01 10:00 Temperature 98.7 F 98.5 F Pulse Rate 94 H 59 L Pulse Rate [ 94 H Dorsalis Pedis] Pulse Rate [ 84 Posterior Tibial] Pulse Rate [ 84 Radial] Respiratory 18 20 19 Rate Blood Pressure 138/90 113/91 O2 Sat by Pulse 98 99 Oximetry - Lab 10/14/20 05:18 10/15/20 05:06 Most recent lab results Calcium 9.1 mg/dL (8.4-10.2) 10/15/20 05:06 Medications & Allergies - Medications Allergies/Adverse Reactions: Allergies No Known Allergies Allergy (Unverified 10/04/20 15:30) Home Medications: Home Medications Medication Instructions Recorded Confirmed Last Taken Type Rosuvastatin Calcium 10 mg PO QDAY 07/31/19 10/09/20 Unknown History carvediloL [Coreg] 6.25 mg PO BID 07/31/19 10/09/20 Unknown History Clopidogrel [Plavix] 75 mg PO QDAY #30 tablet 08/09/20 10/09/20 Unknown Rx Linaclotide [Linzess] 72 mcg PO DAILY #30 tab 08/09/20 10/09/20 Unknown Rx Sodium Bicarbonate 650 mg PO DAILY #60 tab 08/09/20 10/09/20 Unknown Rx amLODIPine 10 mg PO QDAY #30 tablet 08/09/20 10/09/20 Unknown Rx cloNIDine [Catapres] 0.1 mg PO Q8HR #90 tablet 08/09/20 10/09/20 Unknown Rx hydrALAZINE [Apresoline TAB] 50 mg PO Q8HR #90 tablet 08/09/20 10/09/20 Unknown Rx Gabapentin [Neurontin] 300 mg PO Q8HR 10/05/20 10/05/20 Unknown History Active Medications: Generic Name Dose Route Start Last Admin Trade Name Freq PRN Reason Stop Dose Admin Acetaminophen 650 mg 10/04/20 18:06 10/10/20 22:24 Tylenol PO 650 mg Q4H PRN Administration Pain, Mild (1-3) Amlodipine Besylate 10 mg 10/05/20 10:00 10/15/20 09:52 Amlodipine PO Not Given QDAY [facility] Lipase/Protease/Amylase 1 each 10/06/20 16:[address] 10,500 Unit FEEDTUBE PRN PRN For Clogged Feeding Tube Atorvastatin Calcium 80 mg 10/04/20 22:00 10/14/20 21:00 Lipitor PO Not Given QHS OSEI Bicalutamide 50 mg 10/05/20 10:00 10/15/20 09:52 Casodex PO Not Given DAILY OSEI Bisacodyl 10 mg 10/04/20 18:06 Dulcolax HI QDAY PRN Constipation Carvedilol 6.25 mg 10/04/20 22:00 10/15/20 09:52 Coreg PO Not Given BID OSEI Clonidine HCl 0.1 mg 10/04/20 22:00 10/15/20 06:48 Catapres PO Not Given Q8HR OSEI Hydralazine HCl 50 mg 10/04/20 22:00 10/15/20 06:47 Apresoline PO Not Given Q8HR [facility] Sodium Chloride 1,000 mls @ 75 mls/hr 10/14/20 10:00 10/15/20 06:45 Nacl 0.45% 1000 Ml IV 75 mls/hr DIRECT OSEI Administration Ceftriaxone Sodium 1 gm in 50 mls @ 100 mls/hr 10/14/20 10:00 10/15/20 09:45 Rocephin/Ns 1 Gm/50 Ml IV 10/18/20 09:59 100 mls/hr Q24HR OSEI Administration Protocol Cefazolin Sodium 2 gm in 20 mls @ 80 mls/hr 10/15/20 06:00 Ancef/Sterile Water 2 Gm/20 Ml IV 10/15/20 23:59 PREOP NR Protocol Labetalol HCl 10 mg 10/05/20 22:20 10/14/20 17:00 Labetalol IV 10 mg Q6HR PRN Administration Blood Pressure Levetiracetam 500 mg 10/07/20 22:00 10/15/20 09:52 Keppra PO Not Given BID [facility] Magnesium Hydroxide 30 ml 10/04/20 18:06 Milk Of Magnesia PO Q4H PRN Constipation Metoclopramide HCl 10 mg 10/04/20 18:06 10/04/20 20:39 Reglan PO 10 mg Q6H PRN Administration Nausea And Vomiting Miscellaneous Medication 72 mcg 10/05/20 10:00 Linaclotide [Linzess] PO DAILY [facility] Ondansetron HCl 4 mg 10/04/20 18:06 10/11/20 18:21 Zofran IV 4 mg Q8H PRN Administration Nausea And Vomiting Promethazine HCl 25 mg 10/04/20 18:06 Phenergan HI Q6H PRN Nausea And Vomiting Simple Syrup 15 ml 10/06/20 16:00 Simple Syrup FEEDTUBE PRN PRN Hypoglycemia Simple Syrup 30 ml 10/06/20 16:00 Simple Syrup FEEDTUBE PRN PRN Hypoglycemia Sodium Bicarbonate 650 mg 10/05/20 10:00 10/15/20 09:52 Sodium Bicarbonate PO Not Given DAILY OSEI Sodium Bicarbonate 325 mg 10/06/20 16:00 Sodium Bicarbonate FEEDTUBE PRN PRN For Clogged Feeding Tube Sodium Chloride 10 ml 10/04/20 18:06 10/11/20 21:53 Sodium Chloride Flush Syringe 10 Ml IV 10 ml PRN PRN Administration LINE FLUSH
[2020-10-15] MEDS ORDERED: fentaNYL 100 MCG/2 ML INJ ONE (12:56)
[2020-10-15] MEDS ORDERED: ROCURONIUM 50 MG/5 ML INJ IV ONE (12:58)
[2020-10-15] MEDS ORDERED: PHENYLEPHRINE/NS 1,000 MCG/10 ML SYRINGE (OR USE) IV ONE (13:07)
[2020-10-15] MEDS ORDERED: GLYCOPYRROLATE 0.4 MG/2 ML INJ ONE ×2 (13:26)
[2020-10-15] MEDS ORDERED: NEOSTIGMINE 10MG/10 ML INJ MDV ONE (13:26)
[2020-10-15] MEDS ORDERED: ONDANSETRON 4 MG/2 ML INJ ONE (13:30)
--- NOTE | 2020-10-15 13:40 | Anesthesia Day of Surgery ---
Anesthesia Day of Surgery - Day of Surgery Patient Examined: Yes Patient H&P Reviewed: Yes Patient is NPO: Yes
--- NOTE | 2020-10-15 13:44 | Post Operative Note ---
Pre-op diagnosis: dysphagia Findings: Good placement of PEG into stomach under lap visualization. Bumper at 4cm at skin Anesthesia: MINDI local Surgeon: JAHAIRA ARCOS Compliance Paralegal: MIKE EL (Cosurgeon) Estimated blood loss: minimal Pathology: none Condition: stable Disposition: PACU
[2020-10-15] MEDS ORDERED: LIPASE 10,500/PROTEASE 25,000/AMYLASE 43,750 (UNITS) DR CAP FEEDTUBE PRN (13:45)
[2020-10-15] MEDS ORDERED: SIMPLE SYRUP 15 ML FEEDTUBE PRN ×2 (13:45)
[2020-10-15] MEDS ORDERED: SODIUM BICARBONATE 325 MG TAB FEEDTUBE PRN (13:45)
--- NOTE | 2020-10-15 15:57 | Operative Report ---
Operative Report Operative Report: Date: 10/15/20 13:42 Pre-op diagnosis: dysphagia Findings: Good placement of PEG into stomach under lap visualization. Bumper at 4cm at skin Anesthesia: MINDI local Surgeon: JAHAIRA ARCOS Machine Oiler: MIKE DOVER (Cosurgeon) Estimated blood loss: minimal Pathology: none Condition: stable Disposition: PACU HPI and indication: Patient is a 60-year-old male with acute CVA. He presented to the emergency room after being found down with altered mental status. He was admitted and found to have severe dysphagia on speech eval. PEG recommended. GI unable safely place PEG in standard fashion and surgery consulted. It was recommended that the patient undergo laparoscopic assisted PEG tube placement. All risk, benefits, alternatives to surgery were discussed with the patient's daughter/NOK and consent obtained. Seizure in detail: Patient was then found the preoperative area, take back to operating room placed operating table in supine position. After anesthesia was induced the abdomen is prepped and draped in usual sterile fashion timeout per formed. Local anesthetic was infiltrated to skin at the intended incision sites. A supraumbilical incision was made through which a Veress needle was inserted. The Veress needle position was confirmed using saline drop test and the abdomen insufflated to 15 mmHg. Once the abdomen was insufflated, the Veress needle was removed and a 5 mm Optiview trocar placed through this incision. The abdomen is inspected and there was no underlying injury to any abdominal structures. An additional left upper quadrant 5 mm trocar was placed under direct visualization. Dr. Dover performed EGD during the procedure. A flexible endoscope was passed through the mouth, into the esophagus and into the stomach. The stomach was insufflated and examination showing a small hiatal hernia but was otherwise unremarkable. The stomach was identified laparoscopically. There was transillumination just below the xiphoid process. A small incision was made approximately 2 fingerbreadths inferior to the xiphoid process. Insufflation was turned down to 8 mmHg in order to allow the stomach to gently oppose the abdominal wall. The needle was inserted through the incision and into the stomach under direct laparoscopic visualization. The wire was passed into the stomach and grasped with the endoscopic snare. The wire and the endoscope were withdrawn and the PEG tube assembled in the usual fashion. Once the PEG tube was assembled it was pulled into the stomach in the standard fashion. The endoscope was once again passed into the stomach and the inner PEG bumper was seen to lay against the stomach mucosa without tension. There was no bleeding. The outer bumper was at 4 cm at the skin. The PEG tube was assembled in the usual fashion. The abdomen was then desufflated and the ports removed. The laparoscopic incisions were approximated using 4-0 Monocryl subcuticular stitches and skin glue. At the end of the case all sponge, instrument, sharp counts were correct x2. Patient was awoken from anesthesia extubated and taken to PACU in stable condition. His daughter was called and updated.
[2020-10-15] MEDS: DEXTROSE 5% IN WATER 1,000 ML IV SCH (16:17)
--- NOTE | 2020-10-15 20:06 | Progress Note ---
Assessment and Plan Assessment and plan: 60-year-old male with acute CVA and dysphagia, dysarthria ,left hemiparesis, unable to place Dobbhoff, evaluated by GI for possible PEG placement, GI unable to safely place in standard fashion hence surgery was consulted. Today patient underwent laparoscopic-assisted PEG placement by surgery, patient tolerated the procedure well. We will start tube feeding per protocol and recommendations by surgery --Acute CVA; with left-sided hemiparesis Dysarthria, dysphagia Aspirin and Plavix held in preparation for PEG placement Resume aspirin Plavix tomorrow --Dysphagia; s/p laparoscopic-assisted PEG placement by surgery 10/15/2020 Tube feeding per protocol, aspiration precautions, --History of seizure disorder; Seizure precautions, continue antiepileptic medications, patient cannot drive --Chronic kidney disease/acute on chronic kidney disease; Vasomotor nephropathy, mild improvement Avoid nephrotoxins, nephrology following --Hypertension; moderate control Continue current antihypertensives and as needed medications --Dyslipidemia; statin --Ongoing tobacco use; smoking cessation counseling Nicotine patch as needed --DVT prophylaxis; SCDs --DC planning per case management Subacute rehab/SNF/acute rehab placement when stable We will closely monitor the patient and adjust management as needed Plan of care reviewed with the patient and his nurse N.p.o. status for possible surgical placement of feeding tube tomorrow 10/05: Patient remains very lethargic awaiting neurology work-up. No new findings of neurologic dysfunction was noted. Left-sided weakness is residual from prior. Reevaluate speech swallow when more awake. 10/06: Neurology input noted appears that the patient fell while trying to put his shoes on. Home health will be required at discharge probably with 24-hour aide or patient may need to be placed will consult case management. Continue antiplatelets and statin therapy at this time. No indication for MRI. As patient had a recent MRI study. We will also transferred to the medical floor 10/07: Speech re-evsoledad, pt for placement assessment. Spoke to the daughter today who will like placement and also gave me more information that the patient 5 days prior to presentation had facial droop and was getting weaker. Will proceed with MRI study considering the delay in returning to baseline and with this new information. Also patients daughter due to work will not be able to provided 24 hr care at this time which is what this patient needs. Aspiration precautions. for now tolerating tube feed 10/09: Aspiration concerns, will obtain GI re-evluation for possible PEG as an alternative source of eating while the patient continues to improve. Keep HOB >45deg. 10/10: Hold plavix and Change asa to 81mg to allow for PEG placement. Begin PLACEMENT process. 10/11: Still with expressive aphasia will get speech therapy. Patient will benefit from alf facility prior authorization is in place. Patient also will benefit from an alternative source of nutrition as he is best unsteady with his current oral diet with high risk of aspiration. Due to recent Plavix this will be done on 14 October. If SNF is obtained before that time it may be beneficial for patient to be discharged and come outpatient for this procedure. 10/12/ 10/12/20; GI has evaluated the patient possible PEG placement on 10/14/2020 if swallow test has no improvement, will try to place Dobbhoff for medications and feeds 10/13/20; nurses could not introduce Dobbhoff as patient was not cooperative, patient remains n.p.o., possible PEG placement tomorrow 10/14/2020 Aspirin and Plavix held for the procedure 10/14/20; unable to achieve endoscopic PEG placement, surgery consulted, unable to pass Dobbhoff, n.p.o. status 10/15/2020; s/p laparoscopic-assisted PEG placement by surgery, start tube feeds per protocol History Interval history: Today patient underwent laparoscopic-assisted PEG placement by surgery, patient tolerated the procedure well. We will start tube feeding per protocol and recommendations by surgery Patient is slightly drowsy, dysarthria, not in acute distress Vital signs reviewed Hospitalist Physical - Constitutional Vitals: Temp Pulse Resp BP Pulse Ox 97.3 F L 60 16 153/87 99 10/15/20 14:00 10/15/20 19:39 10/15/20 14:15 10/15/20 14:15 10/15/20 14:15 General appearance: Present: no acute distress, well-nourished, obese, other (Dysarthria.) - EENT Eyes: Present: PERRL, EOM intact - Neck Neck: Present: supple, normal ROM - Respiratory Respiratory effort: normal Respiratory: bilateral: diminished, rhonchi, negative: rales, wheezing - Cardiovascular Rhythm: regular Heart Sounds: Present: S1 & S2 - Extremities Extremities: no ischemia Extremity abnormal: edema - Abdominal General gastrointestinal: soft, non-tender, non-distended, other (PEG tube in place) - Integumentary Integumentary: Present: clear, warm - Psychiatric Psychiatric: appropriate mood/affect, cooperative - Neurologic Neurologic: moves all extremities (Acute CVA, dysarthria, left hemiparesis) HEART Score - HEART Score Troponin: Troponin T < 0.010 ng/mL (0.00-0.029) 10/04/20 15:39 Results - Labs CBC & Chem 7: 10/14/20 05:18 10/15/20 05:06 Labs: Laboratory Last Values WBC 5.4 K/mm3 (4.5-11.0) 10/14/20 05:18 RBC 4.35 M/mm3 (3.65-5.03) 10/14/20 05:18 Hgb 13.5 gm/dl (11.8-15.2) 10/14/20 05:18 Hct 40.6 % (35.5-45.6) 10/14/20 05:18 MCV 93 fl (84-94) 10/14/20 05:18 MCH 31 pg (28-32) 10/14/20 05:18 MCHC 33 % (32-34) 10/14/20 05:18 RDW 14.5 % (13.2-15.2) 10/14/20 05:18 Plt Count 170 K/mm3 (140-440) 10/14/20 05:18 Lymph % (Auto) 18.2 % (13.4-35.0) 10/14/20 05:18 Cassia % (Auto) 12.0 % (0.0-7.3) H 10/14/20 05:18 Eos % (Auto) 5.1 % (0.0-4.3) H 10/14/20 05:18 Baso % (Auto) 0.6 % (0.0-1.8) 10/14/20 05:18 Lymph # (Auto) 1.0 K/mm3 (1.2-5.4) L 10/14/20 05:18 Cassia # (Auto) 0.6 K/mm3 (0.0-0.8) 10/14/20 05:18 Eos # (Auto) 0.3 K/mm3 (0.0-0.4) 10/14/20 05:18 Baso # (Auto) 0.0 K/mm3 (0.0-0.1) 10/14/20 05:18 Seg Neutrophils % 64.1 % (40.0-70.0) 10/14/20 05:18 Seg Neutrophils # 3.4 K/mm3 (1.8-7.7) 10/14/20 05:18 PT 13.5 Sec. (12.2-14.9) 10/04/20 15:39 INR 1.01 (0.87-1.13) 10/04/20 15:39 APTT 29.2 Sec. (24.2-36.6) 10/04/20 15:39 Thrombin Time 15.2 Sec. (15.1-19.6) 10/04/20 15:39 Sodium 154 mmol/L (137-145) H 10/15/20 05:06 Potassium 4.1 mmol/L (3.6-5.0) 10/15/20 05:06 Chloride 117.9 mmol/L (98-107) H 10/15/20 05:06 Carbon Dioxide 20 mmol/L (22-30) L 10/15/20 05:06 Anion Gap 20 mmol/L 10/15/20 05:06 BUN 41 mg/dL (9-20) H 10/15/20 05:06 Creatinine 2.5 mg/dL (0.8-1.3) H 10/15/20 05:06 Estimated GFR 32 ml/min 10/15/20 05:06 BUN/Creatinine Ratio 16 % 10/15/20 05:06 Glucose 111 mg/dL (75-100) H 10/15/20 05:06 POC Glucose 91 mg/dL (70-105) 10/15/20 16:55 Calcium 9.1 mg/dL (8.4-10.2) 10/15/20 05:06 Total Bilirubin 1.00 mg/dL (0.1-1.2) 10/15/20 05:06 AST 22 units/L (5-40) 10/15/20 05:06 ALT 13 units/L (7-56) 10/15/20 05:06 Alkaline Phosphatase 133 units/L (35-129) H 10/15/20 05:06 Troponin T < 0.010 ng/mL (0.00-0.029) 10/04/20 15:39 Total Protein 8.0 g/dL (6.3-8.2) 10/15/20 05:06 Albumin 3.9 g/dL (3.9-5) 10/15/20 05:06 Albumin/Globulin Ratio 1.0 % 10/15/20 05:06 Triglycerides 51 mg/dL (2-149) 10/05/20 09:46 Cholesterol 115 mg/dL (50-199) 10/05/20 09:46 LDL Cholesterol Direct 56 mg/dL (50-130) 10/05/20 09:46 HDL Cholesterol 53 mg/dL (40-59) 10/05/20 09:46 Cholesterol/HDL Ratio 2.16 % 10/05/20 09:46 Urine Color Yellow (Yellow) 10/13/20 10:23 Urine Turbidity Cloudy (Clear) 10/13/20 10:23 Urine pH 9.0 (5.0-7.0) H 10/13/20 10:23 Ur Specific [place] 1.017 (1.003-1.030) 10/13/20 10:23 Urine Protein 100 mg/dl mg/dL (Negative) 10/13/20 10:23 Urine Glucose (UA) Neg mg/dL (Negative) 10/13/20 10:23 Urine Ketones Neg mg/dL (Negative) 10/13/20 10:23 Urine Blood Neg (Negative) 10/13/20 10:23 Urine Nitrite Pos (Negative) 10/13/20 10:23 Urine Bilirubin Neg (Negative) 10/13/20 10:23 Urine Urobilinogen 2.0 mg/dL (<2.0) 10/13/20 10:23 Ur Leukocyte Esterase Lg (Negative) 10/13/20 10:23 Urine WBC (Auto) 20.0 /HPF (0.0-6.0) H 10/13/20 10:23 Urine RBC (Auto) 13.0 /HPF (0.0-6.0) 10/13/20 10:23 U Epithel Cells (Auto) 1.0 /HPF (0-13.0) 10/13/20 10:23 Urine Bacteria (Auto) 2+ /HPF (Negative) 10/13/20 10:23 Triple Phos Crystals 2+ 10/13/20 10:23 Urine Mucus Few /HPF 10/13/20 10:23 Urine Eosinophils None seen (None Seen) 10/13/20 10:23 Coronavirus (PCR) Negative (Negative) 10/14/20 Unknown Microbiology: Microbiology 10/13/20 10:23 Urine,Clean Catch Urine Culture - Final [place]/IV: Voiding Method Condom Catheter IV Catheter Type [Right Hand] Peripheral IV Active Medications - Current Medications Current Medications: Generic Name Dose Route Start Last Admin Trade Name Freq PRN Reason Stop Dose Admin Acetaminophen 650 mg 10/04/20 18:06 10/10/20 22:24 Tylenol PO 650 mg Q4H PRN Administration Pain, Mild (1-3) Amlodipine Besylate 10 mg 10/05/20 10:00 10/15/20 09:52 Amlodipine PO Not Given QDAY [facility] Lipase/Protease/Amylase 1 each 10/15/20 13:[address] 10,500 Unit FEEDTUBE PRN PRN For Clogged Feeding Tube Atorvastatin Calcium 80 mg 10/04/20 22:00 10/14/20 21:00 Lipitor PO Not Given QHS [facility] Bicalutamide 50 mg 10/05/20 10:00 10/15/20 09:52 Casodex PO Not Given DAILY [facility] Bisacodyl 10 mg 10/04/20 18:06 Dulcolax MA QDAY PRN Constipation Carvedilol 6.25 mg 10/04/20 22:00 10/15/20 09:52 Coreg PO Not Given BID [facility] Clonidine HCl 0.1 mg 10/04/20 22:00 10/15/20 14:05 Catapres PO Not Given Q8HR OSEI Hydralazine HCl 50 mg 10/04/20 22:00 10/15/20 14:05 Apresoline PO Not Given Q8HR OSEI Ceftriaxone Sodium 1 gm in 50 mls @ 100 mls/hr 10/14/20 10:00 10/15/20 09:45 Rocephin/Ns 1 Gm/50 Ml IV 10/18/20 09:59 100 mls/hr Q24HR OSEI Administration Protocol Cefazolin Sodium 2 gm in 20 mls @ 80 mls/hr 10/15/20 06:00 Ancef/Sterile Water 2 Gm/20 Ml IV 10/15/20 23:59 PREOP NR Protocol Dextrose 1,000 mls @ 100 mls/hr 10/15/20 13:30 10/15/20 16:17 D5w IV 100 mls/hr DIRECT OSEI Administration Labetalol HCl 10 mg 10/05/20 22:20 10/14/20 17:00 Labetalol IV 10 mg Q6HR PRN Administration Blood Pressure Levetiracetam 500 mg 10/07/20 22:00 10/15/20 09:52 Keppra PO Not Given BID OSEI Magnesium Hydroxide 30 ml 10/04/20 18:06 Milk Of Magnesia PO Q4H PRN Constipation Metoclopramide HCl 10 mg 10/04/20 18:06 10/04/20 20:39 Reglan PO 10 mg Q6H PRN Administration Nausea And Vomiting Miscellaneous Medication 72 mcg 10/05/20 10:00 Linaclotide [Linzess] PO DAILY [facility] Ondansetron HCl 4 mg 10/04/20 18:06 10/11/20 18:21 Zofran IV 4 mg Q8H PRN Administration Nausea And Vomiting Promethazine HCl 25 mg 10/04/20 18:06 Phenergan MA Q6H PRN Nausea And Vomiting Simple Syrup 15 ml 10/15/20 13:45 Simple Syrup FEEDTUBE PRN PRN Hypoglycemia Simple Syrup 30 ml 10/15/20 13:45 Simple Syrup FEEDTUBE PRN PRN Hypoglycemia Sodium Bicarbonate 650 mg 10/05/20 10:00 10/15/20 09:52 Sodium Bicarbonate PO Not Given DAILY [facility] Sodium Bicarbonate 325 mg 10/15/20 13:45 Sodium Bicarbonate FEEDTUBE PRN PRN For Clogged Feeding Tube Sodium Chloride 10 ml 10/04/20 18:06 10/11/20 21:53 Sodium Chloride Flush Syringe 10 Ml IV 10 ml PRN PRN Administration LINE FLUSH Nutrition/Malnutrition Assess - Dietary Evaluation Nutrition/Malnutrition Findings: Nutrition Notes Start: 10/06/20 15:15 Freq: Status: Active Protocol: Document 10/15/20 11:09 SEBLE (Rec: 10/15/20 11:11 SEBLE [id number]) Co-Sign 10/15/20 11:09 LM Nutrition Notes Initial or Follow up Brief Note Current Diagnosis CKD(stage I-IV),Hypertension, Stroke Other Pertinent Diagnosis seizure disorder Current Diet NPO Subjective/Other Information F/U for PEG placement. Per chart, "unable to achieve endoscopic PEG placement, azeem consulted". Nutrition Intervention Follow-Up By: 10/18/20 Additional Comments F/U for PEG placement, TF consult
[2020-10-16 05:45] LABS: Albumin 3.5 g/dL (3.9-5); Calcium 8.7 mg/dL (8.4-10.2)
[2020-10-16] MEDS: ONDANSETRON 4 MG/2 ML INJ IV PRN ×2 (05:51→14:27)
[2020-10-16] MEDS: hydrALAZINE 25 MG TAB PO SCH ×3 (05:53→22:17)
[2020-10-16] MEDS: cloNIDine 0.1 MG TAB PO SCH ×3 (05:53→22:18)
--- NOTE | 2020-10-16 08:02 | Progress Note ---
Assessment and Plan 1-year-old male with acute CVA and dysphagia, dysarthria ,left hemiparesis, unable to place Dobbhoff, evaluated by GI for possible PEG placement, GI unable to safely place in standard fashion hence surgery was consulted. Today patient underwent laparoscopic-assisted PEG placement by surgery, patient tolerated the procedure well. We will start tube feeding per protocol and recommendations by surgery --Acute CVA; with left-sided hemiparesis Dysarthria, dysphagia Aspirin and Plavix held in preparation for PEG placement Resume aspirin Plavix tomorrow --Dysphagia; s/p laparoscopic-assisted PEG placement by surgery 10/15/2020 Tube feeding per protocol, aspiration precautions, patient not quite tolerating the rate. We will hold tube feeds check for residuals. Started lesser rate and treat with Zofran for nausea now. --History of seizure disorder; Continue antiseizure medications. --Chronic kidney disease/acute on chronic kidney disease; Vasomotor nephropathy, mild improvement creatinine is 2.4 could be about baseline. Avoid nephrotoxins, nephrology following --Hypertension; moderate control Continue current antihypertensive medications Coreg amlodipine clonidine as needed. --Dyslipidemia; statin --Ongoing tobacco use; smoking cessation counseling Nicotine patch as needed patient is not able to smoke now functional decline. --DVT prophylaxis; SCDs --DC planning per case management Subacute rehab/SNF/acute rehab placement when stable We will closely monitor the patient and adjust management as needed Plan of care reviewed with the patient and his nurse N.p.o. status for possible surgical placement of feeding tube tomorrow 10/05: Patient remains very lethargic awaiting neurology work-up. No new findings of neurologic dysfunction was noted. Left-sided weakness is residual from prior. Reevaluate speech swallow when more awake. 10/06: Neurology input noted appears that the patient fell while trying to put his shoes on. Home health will be required at discharge probably with 24-hour aide or patient may need to be placed will consult case management. Continue antiplatelets and statin therapy at this time. No indication for MRI. As patient had a recent MRI study. We will also transferred to the medical floor 10/07: Speech re-eval, pt for placement assessment. Spoke to the daughter today who will like placement and also gave me more information that the patient 5 days prior to presentation had facial droop and was getting weaker. Will proceed with MRI study considering the delay in returning to baseline and with this new information. Also patients daughter due to work will not be able to provided 24 hr care at this time which is what this patient needs. Aspiration precautions. for now tolerating tube feed 10/09: Aspiration concerns, will obtain GI re-evluation for possible PEG as an alternative source of eating while the patient continues to improve. Keep HOB >45deg. 10/10: Hold plavix and Change asa to 81mg to allow for PEG placement. Begin PLACEMENT process. 10/11: Still with expressive aphasia will get speech therapy. Patient will benefit from long-term facility prior authorization is in place. Patient also will benefit from an alternative source of nutrition as he is best unsteady with his current oral diet with high risk of aspiration. Due to recent Plavix this will be done on 14 October. If SNF is obtained before that time it may be beneficial for patient to be discharged and come outpatient for this procedure. 10/12/20; GI has evaluated the patient possible PEG placement on 10/14/2020 if swallow test has no improvement, will try to place Dobbhoff for medications and feeds 10/13/20; nurses could not introduce Dobbhoff as patient was not cooperative, patient remains n.p.o., possible PEG placement tomorrow 10/14/2020 Aspirin and Plavix held for the procedure 10/14/20; unable to achieve endoscopic PEG placement, surgery consulted, unable to pass Dobbhoff, n.p.o. status 10/15/2020; s/p laparoscopic-assisted PEG placement by surgery, start tube feeds per protocol 10/16/2020. Patient will need assistance with tolerating PEG tube Will hold tube feedings for now. Patient episode of nausea treat with Zofran. Subjective Date of service: 10/16/20 Principal diagnosis: Acute CVA Interval history: Patient with episode of vomitus over p.m. Tube feeds will be held for now. Will give patient Zofran. She was able to attempt to say name. Some point patient will need placement in rehab services. Objective - Constitutional Vitals: Vital Signs - 12hr 10/15/20 10/15/20 10/16/20 20:38 23:57 04:23 Temperature 99.5 F 98.3 F 97.6 F Pulse Rate 86 131 H 64 Respiratory 18 18 20 Rate Blood Pressure 142/100 164/109 146/105 O2 Sat by Pulse 100 99 99 Oximetry General appearance: Present: mild distress - EENT Eyes: PERRL, EOM intact ENT: hearing intact, clear oral mucosa - Neck Neck: supple, normal ROM, other (Drooling no bruits.) - Respiratory Respiratory: bilateral: diminished - Cardiovascular Rhythm: regular Heart Sounds: Present: S1 & S2. Absent: gallop, rub Extremity abnormal: edema, pulses diminished, other (Dense right hemiparesis) - Gastrointestinal General gastrointestinal: Present: soft, non-tender, distended, hypoactive bowel sounds, other (Vomitus) - Neurologic Neurologic: focal deficits - Psychiatric Psychiatric: other (Focal deficits encephalopathic depressed mood.) - Labs CBC & Chem 7: 10/14/20 05:18 10/16/20 04:51 Labs: Abnormal lab results 10/16/20 Range/Units 04:51 Sodium 151 H (137-145) mmol/L Chloride 119.2 H (98-107) mmol/L Carbon Dioxide 21 L (22-30) mmol/L BUN 39 H (9-20) mg/dL Creatinine 2.4 H (0.8-1.3) mg/dL Glucose 159 H (75-100) mg/dL Albumin 3.5 L (3.9-5) g/dL HEART Score - HEART Score Troponin: Troponin T < 0.010 ng/mL (0.00-0.029) 10/04/20 15:39
--- NOTE | 2020-10-16 08:42 | Progress Note ---
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 Will monitor for renal replacement needs while inpatient, but does need outpatient follow up. - daily renal labs - strict Is/Os -cr is stable today - defer further serologic workup for now, will assess based on creatinine trend, urinalysis - renal friendly diet - no indication for biopsy or renal replacement therapy currently # UTI--follow up ua noted, history of recurrent UTI, added rocephin iv # CVA: workup per primary, neuro. #Hypernatremia--add D5W, needs free h20, peg placement per surgery and GI # HTN: BP high, goal per neuro s/p CVA. Subjective Date of service: 10/16/20 Principal diagnosis: Acute CVA Interval history: resting in bed today Objective - Exam Narrative Exam: - Constitutional General appearance: Present: mild distress - EENT Eyes: Present: PERRL ENT: hearing intact, clear oral mucosa - Neck Neck: Present: supple, normal ROM - Respiratory Respiratory effort: normal Respiratory: bilateral: CTA - Cardiovascular Heart Sounds: Present: S1 & S2. Absent: rub, click - Extremities Extremities: pulses symmetrical, No edema Peripheral Pulses: within normal limits - Abdominal General gastrointestinal: Present: soft, non-tender, non-distended, normal bowel sounds Male genitourinary: Present: normal - Integumentary Integumentary: Present: clear, warm, dry - Musculoskeletal Musculoskeletal: left sided weakness - Psychiatric Psychiatric: appropriate mood/affect, intact judgment & insight - Neurologic Neurologic: CNII-XII intact, moves all extremities, no gait normal - Vital Signs Vital signs: Vital Signs - 12hr 10/15/20 10/16/20 23:57 04:23 Temperature 98.3 F 97.6 F Pulse Rate 131 H 64 Respiratory 18 20 Rate Blood Pressure 164/109 146/105 O2 Sat by Pulse 99 99 Oximetry - Lab 10/14/20 05:18 10/16/20 04:51 Most recent lab results Calcium 8.7 mg/dL (8.4-10.2) 10/16/20 04:51 Medications & Allergies - Medications Allergies/Adverse Reactions: Allergies No Known Allergies Allergy (Unverified 10/04/20 15:30) Home Medications: Home Medications Medication Instructions Recorded Confirmed Last Taken Type Rosuvastatin Calcium 10 mg PO QDAY 07/31/19 10/09/20 Unknown History carvediloL [Coreg] 6.25 mg PO BID 07/31/19 10/09/20 Unknown History Clopidogrel [Plavix] 75 mg PO QDAY #30 tablet 08/09/20 10/09/20 Unknown Rx Linaclotide [Linzess] 72 mcg PO DAILY #30 tab 08/09/20 10/09/20 Unknown Rx Sodium Bicarbonate 650 mg PO DAILY #60 tab 08/09/20 10/09/20 Unknown Rx amLODIPine 10 mg PO QDAY #30 tablet 08/09/20 10/09/20 Unknown Rx cloNIDine [Catapres] 0.1 mg PO Q8HR #90 tablet 08/09/20 10/09/20 Unknown Rx hydrALAZINE [Apresoline TAB] 50 mg PO Q8HR #90 tablet 08/09/20 10/09/20 Unknown Rx Gabapentin [Neurontin] 300 mg PO Q8HR 10/05/20 10/05/20 Unknown History Active Medications: Generic Name Dose Route Start Last Admin Trade Name Freq PRN Reason Stop Dose Admin Acetaminophen 650 mg 10/04/20 18:06 10/10/20 22:24 Tylenol PO 650 mg Q4H PRN Administration Pain, Mild (1-3) Amlodipine Besylate 10 mg 10/05/20 10:00 10/15/20 09:52 Amlodipine PO Not Given QDAY [facility] Lipase/Protease/Amylase 1 each 10/15/20 13:[address] 10,500 Unit FEEDTUBE PRN PRN For Clogged Feeding Tube Atorvastatin Calcium 80 mg 10/04/20 22:00 10/15/20 21:36 Lipitor PO 80 mg QHS OSEI Administration Bicalutamide 50 mg 10/05/20 10:00 10/15/20 09:52 Casodex PO Not Given DAILY OSEI Bisacodyl 10 mg 10/04/20 18:06 Dulcolax NV QDAY PRN Constipation Carvedilol 6.25 mg 10/04/20 22:00 10/15/20 21:36 Coreg PO 6.25 mg BID OSEI Administration Clonidine HCl 0.1 mg 10/04/20 22:00 10/16/20 05:53 Catapres PO Not Given Q8HR [facility] Hydralazine HCl 50 mg 10/04/20 22:00 10/16/20 05:53 Apresoline PO Not Given Q8HR [facility] Ceftriaxone Sodium 1 gm in 50 mls @ 100 mls/hr 10/14/20 10:00 10/15/20 09:45 Rocephin/Ns 1 Gm/50 Ml IV 10/18/20 09:59 100 mls/hr Q24HR OSEI Administration Protocol Dextrose 1,000 mls @ 100 mls/hr 10/15/20 13:30 10/15/20 16:17 D5w IV 100 mls/hr DIRECT OSEI Administration Labetalol HCl 10 mg 10/05/20 22:20 10/14/20 17:00 Labetalol IV 10 mg Q6HR PRN Administration Blood Pressure Levetiracetam 500 mg 10/07/20 22:00 10/15/20 21:43 Keppra PO 500 mg BID OSEI Administration Magnesium Hydroxide 30 ml 10/04/20 18:06 Milk Of Magnesia PO Q4H PRN Constipation Metoclopramide HCl 10 mg 10/04/20 18:06 10/04/20 20:39 Reglan PO 10 mg Q6H PRN Administration Nausea And Vomiting Miscellaneous Medication 72 mcg 10/05/20 10:00 Linaclotide [Linzess] PO DAILY [facility] Ondansetron HCl 4 mg 10/04/20 18:06 10/16/20 05:51 Zofran IV 4 mg Q8H PRN Administration Nausea And Vomiting Promethazine HCl 25 mg 10/04/20 18:06 Phenergan NV Q6H PRN Nausea And Vomiting Simple Syrup 15 ml 10/15/20 13:45 Simple Syrup FEEDTUBE PRN PRN Hypoglycemia Simple Syrup 30 ml 10/15/20 13:45 Simple Syrup FEEDTUBE PRN PRN Hypoglycemia Sodium Bicarbonate 650 mg 10/05/20 10:00 10/15/20 09:52 Sodium Bicarbonate PO Not Given DAILY [facility] Sodium Bicarbonate 325 mg 10/15/20 13:45 Sodium Bicarbonate FEEDTUBE PRN PRN For Clogged Feeding Tube Sodium Chloride 10 ml 10/04/20 18:06 10/11/20 21:53 Sodium Chloride Flush Syringe 10 Ml IV 10 ml PRN PRN Administration LINE FLUSH
[2020-10-16] MEDS: DEXTROSE 5% IN WATER 1,000 ML IV SCH ×2 (10:49→21:36)
[2020-10-16] MEDS: cefTRIAXone/NS 1 GM/50 ML 1 GM/50 ML BAG IV SCH (10:50)
[2020-10-16] MEDS: amLODIPine 10 MG TAB PO SCH (10:56)
[2020-10-16] MEDS: BICALUTAMIDE 50 MG TAB PO SCH (10:56)
[2020-10-16] MEDS: carvediloL 6.25 MG TAB PO SCH (10:56)
[2020-10-16] MEDS: levETIRAcetam 500 MG/5 ML ORAL LIQD PO SCH ×2 (10:56→21:35)
[2020-10-16] MEDS: SODIUM BICARBONATE 650 MG TAB PO SCH (10:56)
[2020-10-16] MEDS ORDERED: ONDANSETRON 4 MG/2 ML INJ IV PRN (14:58)
[2020-10-16] MEDS: PANTOPRAZOLE 40 MG INJ IV SCH ×2 (16:39→21:35)
[2020-10-17] MEDS: ONDANSETRON 4 MG/2 ML INJ IV PRN ×2 (00:58→05:32)
[2020-10-17] MEDS: carvediloL 6.25 MG TAB PO SCH (01:19)
[2020-10-17] MEDS: DEXTROSE 5% IN WATER 1,000 ML IV SCH (05:32)
[2020-10-17] MEDS: cloNIDine 0.1 MG TAB PO SCH ×3 (05:33→21:59)
[2020-10-17] MEDS: hydrALAZINE 25 MG TAB PO SCH ×3 (05:33→21:59)
[2020-10-17 06:48] LABS: BUN/Creatinine Ratio 16; Blood Urea Nitrogen 35 mg/dL (9-20); Calcium 8.5 mg/dL (8.4-10.2); Hemolysis Index 18
[2020-10-17 06:49] LABS: Alanine Aminotransferase < 5 units/L (7-56)
[2020-10-17] MEDS ORDERED: carvediloL 6.25 MG TAB PO SCH (08:12)
[2020-10-17] MEDS: PANTOPRAZOLE 40 MG INJ IV SCH ×2 (09:41→22:08)
[2020-10-17] MEDS: cefTRIAXone/NS 1 GM/50 ML 1 GM/50 ML BAG IV SCH (09:41)
[2020-10-17] MEDS: SODIUM BICARBONATE 650 MG TAB PO SCH (10:25)
[2020-10-17] MEDS: carvediloL 12.5 MG TAB PO SCH ×2 (10:25→21:59)
[2020-10-17] MEDS: amLODIPine 10 MG TAB PO SCH (10:25)
[2020-10-17] MEDS: BICALUTAMIDE 50 MG TAB PO SCH (10:25)
[2020-10-17] MEDS: levETIRAcetam 500 MG/5 ML ORAL LIQD PO SCH ×2 (10:25→21:59)
--- NOTE | 2020-10-17 12:04 | Progress Note ---
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 Will monitor for renal replacement needs while inpatient, but does need outpatient follow up. - daily renal labs - strict Is/Os -cr is stable today - defer further serologic workup for now, will assess based on creatinine trend, urinalysis - renal friendly diet - no indication for biopsy or renal replacement therapy currently # UTI--follow up ua noted, history of recurrent UTI, added rocephin iv # CVA: workup per primary, neuro. #Hypernatremia--added D5W, needs free h20, peg placement per surgery and GI, na is better today # HTN: BP high, goal per neuro s/p CVA. Subjective Date of service: 10/17/20 Principal diagnosis: Acute CVA Interval history: resting in bed today Objective - Exam Narrative Exam: - Constitutional General appearance: Present: mild distress - EENT Eyes: Present: PERRL ENT: hearing intact, clear oral mucosa - Neck Neck: Present: supple, normal ROM - Respiratory Respiratory effort: normal Respiratory: bilateral: CTA - Cardiovascular Heart Sounds: Present: S1 & S2. Absent: rub, click - Extremities Extremities: pulses symmetrical, No edema Peripheral Pulses: within normal limits - Abdominal General gastrointestinal: Present: soft, non-tender, non-distended, normal bowel sounds Male genitourinary: Present: normal - Integumentary Integumentary: Present: clear, warm, dry - Musculoskeletal Musculoskeletal: left sided weakness - Psychiatric Psychiatric: appropriate mood/affect, intact judgment & insight - Neurologic Neurologic: CNII-XII intact, moves all extremities, no gait normal - Vital Signs Vital signs: Vital Signs - 12hr 10/17/20 10/17/20 10/17/20 00:40 00:47 01:19 Temperature Pulse Rate 80 87 58 L Respiratory Rate Blood Pressure 111/80 Blood Pressure 135/80 [Left] O2 Sat by Pulse 100 Oximetry 10/17/20 10/17/20 10/17/20 04:11 04:48 05:33 Temperature 97.3 F L Pulse Rate 78 67 66 Respiratory 20 Rate Blood Pressure 178/93 166/88 Blood Pressure [Left] O2 Sat by Pulse 100 Oximetry - Lab 10/14/20 05:18 10/17/20 05:53 Most recent lab results Calcium 8.5 mg/dL (8.4-10.2) 10/17/20 05:53 Medications & Allergies - Medications Allergies/Adverse Reactions: Allergies No Known Allergies Allergy (Unverified 10/04/20 15:30) Home Medications: Home Medications Medication Instructions Recorded Confirmed Last Taken Type Rosuvastatin Calcium 10 mg PO QDAY 07/31/19 10/09/20 Unknown History carvediloL [Coreg] 6.25 mg PO BID 07/31/19 10/09/20 Unknown History Clopidogrel [Plavix] 75 mg PO QDAY #30 tablet 08/09/20 10/09/20 Unknown Rx Linaclotide [Linzess] 72 mcg PO DAILY #30 tab 08/09/20 10/09/20 Unknown Rx Sodium Bicarbonate 650 mg PO DAILY #60 tab 08/09/20 10/09/20 Unknown Rx amLODIPine 10 mg PO QDAY #30 tablet 08/09/20 10/09/20 Unknown Rx cloNIDine [Catapres] 0.1 mg PO Q8HR #90 tablet 08/09/20 10/09/20 Unknown Rx hydrALAZINE [Apresoline TAB] 50 mg PO Q8HR #90 tablet 08/09/20 10/09/20 Unknown Rx Gabapentin [Neurontin] 300 mg PO Q8HR 10/05/20 10/05/20 Unknown History Active Medications: Generic Name Dose Route Start Last Admin Trade Name Freq PRN Reason Stop Dose Admin Acetaminophen 650 mg 10/04/20 18:06 10/10/20 22:24 Tylenol PO 650 mg Q4H PRN Administration Pain, Mild (1-3) Amlodipine Besylate 10 mg 10/05/20 10:00 10/17/20 10:25 Amlodipine PO 10 mg QDAY OSEI Administration Lipase/Protease/Amylase 1 each 10/15/20 13:[address] 10,500 Unit FEEDTUBE PRN PRN For Clogged Feeding Tube Atorvastatin Calcium 80 mg 10/04/20 22:00 10/16/20 21:35 Lipitor PO 80 mg QHS OSEI Administration Bicalutamide 50 mg 10/05/20 10:00 10/17/20 10:25 Casodex PO 50 mg DAILY OSEI Administration Bisacodyl 10 mg 10/04/20 18:06 Dulcolax [place] QDAY PRN Constipation Carvedilol 12.5 mg 10/17/20 10:00 10/17/20 10:25 Coreg PO 12.5 mg BID OSEI Administration Clonidine HCl 0.1 mg 10/04/20 22:00 10/17/20 05:33 Catapres PO 0.1 mg Q8HR OSEI Administration Hydralazine HCl 50 mg 10/04/20 22:00 10/17/20 05:33 Apresoline PO 50 mg Q8HR OSEI Administration Ceftriaxone Sodium 1 gm in 50 mls @ 100 mls/hr 10/14/20 10:00 10/17/20 09:41 Rocephin/Ns 1 Gm/50 Ml IV 10/18/20 09:59 100 mls/hr Q24HR OSEI Administration Protocol Dextrose 1,000 mls @ 100 mls/hr 10/15/20 13:30 10/17/20 05:32 D5w IV 100 mls/hr DIRECT OSEI Administration Labetalol HCl 10 mg 10/05/20 22:20 10/14/20 17:00 Labetalol IV 10 mg Q6HR PRN Administration Blood Pressure Levetiracetam 500 mg 10/07/20 22:00 10/17/20 10:25 Keppra PO 500 mg BID OSEI Administration Magnesium Hydroxide 30 ml 10/04/20 18:06 Milk Of Magnesia PO Q4H PRN Constipation Metoclopramide HCl 10 mg 10/04/20 18:06 10/04/20 20:39 Reglan PO 10 mg Q6H PRN Administration Nausea And Vomiting Miscellaneous Medication 72 mcg 10/05/20 10:00 Linaclotide [Linzess] PO DAILY [facility] Ondansetron HCl 4 mg 10/04/20 18:06 10/17/20 05:32 Zofran IV 4 mg Q8H PRN Administration Nausea And Vomiting Pantoprazole Sodium 40 mg 10/16/20 16:10 10/17/20 09:41 Protonix IV 40 mg BID [facility] Administration Promethazine HCl 25 mg 10/04/20 18:06 Phenergan [place] Q6H PRN Nausea And Vomiting Simple Syrup 15 ml 10/15/20 13:45 Simple Syrup FEEDTUBE PRN PRN Hypoglycemia Simple Syrup 30 ml 10/15/20 13:45 Simple Syrup FEEDTUBE PRN PRN Hypoglycemia Sodium Bicarbonate 650 mg 10/05/20 10:00 10/17/20 10:25 Sodium Bicarbonate PO 650 mg DAILY OSEI Administration Sodium Bicarbonate 325 mg 10/15/20 13:45 Sodium Bicarbonate FEEDTUBE PRN PRN For Clogged Feeding Tube Sodium Chloride 10 ml 10/04/20 18:06 10/11/20 21:53 Sodium Chloride Flush Syringe 10 Ml IV 10 ml PRN PRN Administration LINE FLUSH
--- NOTE | 2020-10-17 13:39 | XRay Report ---
ABDOMEN 1 VIEW INDICATION / CLINICAL INFORMATION: N/V, PO PEG TUBE PLACEMENT.. COMPARISON: CT abdomen and pelvis without contrast from 10/14/2020. FINDINGS: TUBES / LINES: A PEG tube is not clearly identified. BOWEL GAS PATTERN: The colon contains a large amount of stool. There is generalized gaseous distentio n of the GI tract. FREE AIR / EXTRALUMINAL GAS: None seen. ADDITIONAL FINDINGS: No significant additional findings. IMPRESSION: No PEG tube is clearly identified. Nonspecific, nonobstructive bowel gas pattern. Signer Name: Joni Angulo MD Signed: 10/17/2020 1:34 PM Workstation Name: [id number]
--- NOTE | 2020-10-17 15:33 | Progress Note ---
Assessment and Plan 60-year-old male with acute CVA and dysphagia, dysarthria ,left hemiparesis, unable to place Dobbhoff, evaluated by GI for possible PEG placement, GI unable to safely place in standard fashion hence surgery was consulted. Today patient underwent laparoscopic-assisted PEG placement by surgery, patient tolerated the procedure well. We will start tube feeding per protocol and recommendations by surgery --Acute CVA; with left-sided hemiparesis Dysarthria, dysphagia Aspirin and Plavix --Dysphagia; s/p laparoscopic-assisted PEG placement by surgery 10/15/2020. Patient still having problems with feeding tube. KUB unable to identify PEG tube at all. Patient has not been able to tolerate PEG tube feedings up to this point. Even water was projected out of the feeding tube. We will have another surgical consult for assistance with PEG tube and evaluate for malfunction. . --History of seizure disorder; Continue antiseizure medications. --Chronic kidney disease/acute on chronic kidney disease; Vasomotor nephropathy, mild improvement creatinine is 2.4 could be about baseline. Avoid nephrotoxins, nephrology following patient is back at baseline creatinine is now 2.2. --Hypertension; moderate control Patient blood pressure uncontrolled. Will increase Coreg to 12.5 mg twice daily continue amlodipine and clonidine. --Dyslipidemia; statin --Ongoing tobacco use; smoking cessation counseling Nicotine patch as needed patient is not able to smoke now functional decline. --DVT prophylaxis; SCDs --DC planning per case management Subacute rehab/SNF/acute rehab placement when stable We will closely monitor the patient and adjust management as needed Plan of care reviewed with the patient and his nurse N.p.o. status for possible surgical placement of feeding tube tomorrow 10/05: Patient remains very lethargic awaiting neurology work-up. No new findings of neurologic dysfunction was noted. Left-sided weakness is residual from prior. Reevaluate speech swallow when more awake. 10/06: Neurology input noted appears that the patient fell while trying to put his shoes on. Home health will be required at discharge probably with 24-hour aide or patient may need to be placed will consult case management. Continue antiplatelets and statin therapy at this time. No indication for MRI. As patient had a recent MRI study. We will also transferred to the medical floor 10/07: Speech re-evsoledad, pt for placement assessment. Spoke to the daughter today who will like placement and also gave me more information that the patient 5 days prior to presentation had facial droop and was getting weaker. Will proceed with MRI study considering the delay in returning to baseline and with this new information. Also patients daughter due to work will not be able to provided 24 hr care at this time which is what this patient needs. Aspiration precautions. for now tolerating tube feed 10/09: Aspiration concerns, will obtain GI re-evluation for possible PEG as an alternative source of eating while the patient continues to improve. Keep HOB >45deg. 10/10: Hold plavix and Change asa to 81mg to allow for PEG placement. Begin PLACEMENT process. 10/11: Still with expressive aphasia will get speech therapy. Patient will benefit from care home facility prior authorization is in place. Patient also will benefit from an alternative source of nutrition as he is best unsteady with his current oral diet with high risk of aspiration. Due to recent Plavix this will be done on 14 October. If SNF is obtained before that time it may be beneficial for patient to be discharged and come outpatient for this procedure. 10/12/ 10/12/20; GI has evaluated the patient possible PEG placement on 10/14/2020 if swallow test has no improvement, will try to place Dobbhoff for medications and feeds 10/13/20; nurses could not introduce Dobbhoff as patient was not cooperative, patient remains n.p.o., possible PEG placement tomorrow 10/14/2020 Aspirin and Plavix held for the procedure 10/14/20; unable to achieve endoscopic PEG placement, surgery consulted, unable to pass Dobbhoff, n.p.o. status 10/15/2020; s/p laparoscopic-assisted PEG placement by surgery, start tube feeds per protocol 10/16/2020. Patient will need assistance with tolerating PEG tube Will hold tube feedings for now. Patient episode of nausea treat with Zofran. 10/17/2020. Patient still having problems with PEG tube feedings. Recent KUB when compared to previous CT scan unable to identify PEG tube. Also medications including water will just come back out a feeding tube. At once thought it may be unable to tolerate the rate of tube feedings however. Await surgical consult for further assistance. Subjective Date of service: 10/17/20 Principal diagnosis: Acute CVA Interval history: Patient hospital course complicated by persistent nausea. Tube feeds were held for the last 12 hours. Patient still had episode of vomitus. Unsure etiology. Yesterday it was thought to be secondary to PEG tube feedings however soon after being held still has symptoms. Patient seemed to improved somewhat with Zofran.. Objective - Constitutional Vitals: Vital Signs - 12hr 10/17/20 10/17/20 10/17/20 04:11 04:48 05:33 Temperature 97.3 F L Pulse Rate 78 67 66 Respiratory 20 Rate Blood Pressure 178/93 166/88 O2 Sat by Pulse 100 Oximetry General appearance: Present: no acute distress - EENT Eyes: PERRL, EOM intact ENT: hearing intact, other Ears: bilateral: normal - Neck Neck: supple, normal ROM - Respiratory Respiratory effort: normal Respiratory: bilateral: CTA, diminished - Breasts Breasts: normal - Cardiovascular Rhythm: regular Heart Sounds: Present: S1 & S2. Absent: gallop, rub Extremities: pulses intact, No edema, normal color, Full ROM Extremity abnormal: edema, other (Lower extremity edema) - Gastrointestinal General gastrointestinal: Present: soft, normal bowel sounds, other (PEG tube is present. Hypoactive bowel sounds somewhat distended but soft. 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
--- NOTE | 2020-10-17 18:30 | XRay Report ---
ABDOMEN 2 VIEWS INDICATION / CLINICAL INFORMATION: G-TUBE PLACEMENT. COMPARISON: KUB performed earlier today. FINDINGS: TUBES / LINES: Contrast injected through previously placed gastrostomy tube opacifies the stomach and duodenum as expected. BOWEL GAS PATTERN: Gaseous distention of the colon is again noted with stool present throughout the c olon. No other significant abnormality. FREE AIR / EXTRALUMINAL GAS: None seen. ADDITIONAL FINDINGS: No significant additional findings. IMPRESSION: Satisfactory positioning of the gastrostomy tube. Signer Name: Joni Angulo MD Signed: 10/17/2020 6:26 PM Workstation Name: [id number]
[2020-10-18 05:02] VITALS: BP 105/67
[2020-10-18 05:47] LABS: Albumin 3.3 g/dL (3.9-5); Calcium 8.7 mg/dL (8.4-10.2)
[2020-10-18] MEDS: hydrALAZINE 25 MG TAB PO SCH (05:47)
[2020-10-18] MEDS: cloNIDine 0.1 MG TAB PO SCH (05:51)
--- NOTE | 2020-10-18 09:04 | Progress Note ---
Assessment and Plan 60 YO M s/p lap assisted PEG placement, EGD, POD 3 Gastrostomy tube study - PEG in stomach with opacification of stomach and duodenum with contrast. Air and stool in colon Plan: 1. Ok to resume TF at 10cc/hr, adv slowly to goal as gilbert 2. bowel regimen - colace BID and dulcolax pr daily until BM 3. prn pain and nausea control 4. recommend OOB/chair- PT on board, rec SNF 5. monitor electrolytes and replace as needed Will follow. Thank you, please call with questions. Subjective Date of service: 10/18/20 Narrative: Pt seen and examined. Issues with G tube over weekend. Pt also with emesis x 2 over the weekend. Pt does not answer any questions. No emesis per nursing notes over the last 24 hours. TF have been held. Also no BM recorded for several days. Objective Vital Signs - 12hr 10/17/20 10/18/20 10/18/20 21:18 00:50 04:57 Temperature 98.8 F 98.6 F Pulse Rate 72 75 Respiratory 20 20 20 Rate Blood Pressure 105/67 Blood Pressure 112/74 [Left] O2 Sat by Pulse 97 990 H 100 Oximetry - General physical appearance Narrative Exam: Gen; Awake, nonverbal. NAD CV: S1, S2+ Resp; even and unlabored Abd: soft, protuberant, NT, ND. PEG site c/d/i with bumper at 4 cm at the skin. TF running. Ext: no c/c/e - Labs 10/18/20 09:04 10/18/20 09:04 Diabetes panel 10/18/20 Range/Units 04:36 Sodium 144 (137-145) mmol/L Potassium 3.5 L (3.6-5.0) mmol/L Chloride 110.7 H (98-107) mmol/L Carbon Dioxide 22 (22-30) mmol/L BUN 29 H (9-20) mg/dL Creatinine 2.4 H (0.8-1.3) mg/dL Glucose 117 H (75-100) mg/dL Calcium 8.7 (8.4-10.2) mg/dL AST 16 (5-40) units/L ALT 5 L (7-56) units/L Alkaline Phosphatase 103 (35-129) units/L Total Protein 7.0 (6.3-8.2) g/dL Albumin 3.3 L (3.9-5) g/dL Calcium panel 10/18/20 Range/Units 04:36 Calcium 8.7 (8.4-10.2) mg/dL Albumin 3.3 L (3.9-5) g/dL Pituitary panel 10/18/20 Range/Units 04:36 Sodium 144 (137-145) mmol/L Potassium 3.5 L (3.6-5.0) mmol/L Chloride 110.7 H (98-107) mmol/L Carbon Dioxide 22 (22-30) mmol/L BUN 29 H (9-20) mg/dL Creatinine 2.4 H (0.8-1.3) mg/dL Glucose 117 H (75-100) mg/dL Calcium 8.7 (8.4-10.2) mg/dL Adrenal panel 10/18/20 Range/Units 04:36 Sodium 144 (137-145) mmol/L Potassium 3.5 L (3.6-5.0) mmol/L Chloride 110.7 H (98-107) mmol/L Carbon Dioxide 22 (22-30) mmol/L BUN 29 H (9-20) mg/dL Creatinine 2.4 H (0.8-1.3) mg/dL Glucose 117 H (75-100) mg/dL Calcium 8.7 (8.4-10.2) mg/dL Total Bilirubin 1.20 (0.1-1.2) mg/dL AST 16 (5-40) units/L ALT 5 L (7-56) units/L Alkaline Phosphatase 103 (35-129) units/L Total Protein 7.0 (6.3-8.2) g/dL Albumin 3.3 L (3.9-5) g/dL
[2020-10-18 09:41] LABS: Basophils % (Auto) 0.2 % (0.0-1.8); Eosinophils # (Auto) 0.1 K/mm3 (0.0-0.4); Eosinophils % (Auto) 1.1 % (0.0-4.3); Hematocrit 36.9 % (35.5-45.6); Hemoglobin 12.4 gm/dl (11.8-15.2); Lymphocytes # (Auto) 1.1 K/mm3 (1.2-5.4); Lymphocytes % (Auto) 12.7 % (13.4-35.0); Mean Corpuscular HGB Conc 34 % (32-34); Mean Corpuscular Volume 93 fl (84-94); Monocytes # (Auto) 0.6 K/mm3 (0.0-0.8); Monocytes % (Auto) 7.6 % (0.0-7.3); Platelet Count 155 K/mm3 (140-440); Red Blood Count 3.98 M/mm3 (3.65-5.03); Red Cell Distribution Width 14.1 % (13.2-15.2)
[2020-10-18] MEDS: levETIRAcetam 500 MG/5 ML ORAL LIQD PO SCH (09:50)
[2020-10-18] MEDS: SODIUM BICARBONATE 650 MG TAB PO SCH (09:50)
[2020-10-18] MEDS: PANTOPRAZOLE 40 MG INJ IV SCH (09:51)
[2020-10-18] MEDS: BICALUTAMIDE 50 MG TAB PO SCH (09:51)
[2020-10-18] MEDS: amLODIPine 10 MG TAB PO SCH (10:00)
[2020-10-18] MEDS ORDERED: DOCUSATE SODIUM 100 MG/10 ML ORAL LIQD FEEDTUBE SCH (10:00)
[2020-10-18] MEDS: carvediloL 12.5 MG TAB PO SCH (10:00)
[2020-10-18 10:04] LABS: Calcium 8.6 mg/dL (8.4-10.2)
--- NOTE | 2020-10-18 10:21 | Progress Note ---
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 - daily renal labs - strict Is/Os - cr is stable today - defer further serologic workup for now, will assess based on creatinine trend, urinalysis - renal friendly diet - no indication for biopsy or renal replacement therapy currently # UTI--follow up ua noted, history of recurrent UTI # CVA: workup per primary, neuro # Hypernatremia: stable at 146, continue D5W prn, advise to increase free water as able, s/p peg placement # HTN: BP at goal now on current regimen Subjective Date of service: 10/18/20 Principal diagnosis: Acute CVA Interval history: Sleeping this AM, no acute issues noted Objective - Exam Narrative Exam: - Constitutional General appearance: Present: no distress - EENT Eyes: Present: PERRL ENT: hearing intact - Neck Neck: Present: supple, normal ROM - Respiratory Respiratory effort: normal Respiratory: bilateral: CTA - Cardiovascular Heart Sounds: Present: S1 & S2. Absent: rub, click - Extremities Extremities: pulses symmetrical, No edema Peripheral Pulses: within normal limits - Abdominal General gastrointestinal: Present: soft, non-tender, non-distended, normal bowel sounds Male genitourinary: Present: normal - Integumentary Integumentary: Present: clear, warm, dry - Musculoskeletal Musculoskeletal: left sided weakness - Psychiatric Psychiatric: appropriate mood/affect, intact judgment & insight - Neurologic Neurologic: CNII-XII intact, moves all extremities, no gait normal - Vital Signs Vital signs: Vital Signs - 12hr 10/18/20 10/18/20 00:50 04:57 Temperature 98.8 F 98.6 F Pulse Rate 72 75 Respiratory 20 20 Rate Blood Pressure 105/67 Blood Pressure 112/74 [Left] O2 Sat by Pulse 990 H 100 Oximetry - Lab 10/18/20 09:04 10/18/20 09:04 Most recent lab results Calcium 8.6 mg/dL (8.4-10.2) 10/18/20 09:04 Medications & Allergies - Medications Allergies/Adverse Reactions: Allergies No Known Allergies Allergy (Unverified 10/04/20 15:30) Home Medications: Home Medications Medication Instructions Recorded Confirmed Last Taken Type Rosuvastatin Calcium 10 mg PO QDAY 07/31/19 10/09/20 Unknown History carvediloL [Coreg] 6.25 mg PO BID 07/31/19 10/09/20 Unknown History Clopidogrel [Plavix] 75 mg PO QDAY #30 tablet 08/09/20 10/09/20 Unknown Rx Linaclotide [Linzess] 72 mcg PO DAILY #30 tab 08/09/20 10/09/20 Unknown Rx Sodium Bicarbonate 650 mg PO DAILY #60 tab 08/09/20 10/09/20 Unknown Rx amLODIPine 10 mg PO QDAY #30 tablet 08/09/20 10/09/20 Unknown Rx cloNIDine [Catapres] 0.1 mg PO Q8HR #90 tablet 08/09/20 10/09/20 Unknown Rx hydrALAZINE [Apresoline TAB] 50 mg PO Q8HR #90 tablet 08/09/20 10/09/20 Unknown Rx Gabapentin [Neurontin] 300 mg PO Q8HR 10/05/20 10/05/20 Unknown History Active Medications: Generic Name Dose Route Start Last Admin Trade Name Freq PRN Reason Stop Dose Admin Acetaminophen 650 mg 10/04/20 18:06 10/10/20 22:24 Tylenol PO 650 mg Q4H PRN Administration Pain, Mild (1-3) Amlodipine Besylate 10 mg 10/05/20 10:00 10/17/20 10:25 Amlodipine PO 10 mg QDAY OSEI Administration Lipase/Protease/Amylase 1 each 10/15/20 13:45 Pancreblaire Nogueira 10,500 Unit FEEDTUBE PRN PRN For Clogged Feeding Tube Atorvastatin Calcium 80 mg 10/04/20 22:00 10/17/20 22:00 Lipitor PO Not Given QHS OSEI Bicalutamide 50 mg 10/05/20 10:00 10/18/20 09:51 Casodex PO 50 mg DAILY OSEI Administration Bisacodyl 10 mg 10/18/20 10:00 10/18/20 09:50 Dulcolax [place] 10 mg QDAY OSEI Administration Carvedilol 12.5 mg 10/17/20 10:00 10/17/20 21:59 Coreg PO Not Given BID OSEI Clonidine HCl 0.1 mg 10/04/20 22:00 10/18/20 05:51 Catapres PO Not Given Q8HR [facility] Docusate Sodium 100 mg 10/18/20 10:00 10/18/20 09:50 Colace FEEDTUBE 100 mg BID OSEI Administration Hydralazine HCl 50 mg 10/04/20 22:00 10/18/20 05:47 Apresoline PO Not Given Q8HR [facility] Dextrose 1,000 mls @ 100 mls/hr 10/15/20 13:30 10/17/20 05:32 D5w IV 100 mls/hr DIRECT OSEI Administration Labetalol HCl 10 mg 10/05/20 22:20 10/14/20 17:00 Labetalol IV 10 mg Q6HR PRN Administration Blood Pressure Levetiracetam 500 mg 10/07/20 22:00 10/18/20 09:50 Keppra PO 500 mg BID OSEI Administration Magnesium Hydroxide 30 ml 10/04/20 18:06 Milk Of Magnesia PO Q4H PRN Constipation Metoclopramide HCl 10 mg 10/04/20 18:06 10/04/20 20:39 Reglan PO 10 mg Q6H PRN Administration Nausea And Vomiting Miscellaneous Medication 72 mcg 10/05/20 10:00 Linaclotide [Linzess] PO DAILY [facility] Ondansetron HCl 4 mg 10/04/20 18:06 10/17/20 05:32 Zofran IV 4 mg Q8H PRN Administration Nausea And Vomiting Pantoprazole Sodium 40 mg 10/16/20 16:10 10/18/20 09:51 Protonix IV 40 mg BID [facility] Administration Promethazine HCl 25 mg 10/04/20 18:06 Phenergan IL Q6H PRN Nausea And Vomiting Simple Syrup 15 ml 10/15/20 13:45 Simple Syrup FEEDTUBE PRN PRN Hypoglycemia Simple Syrup 30 ml 10/15/20 13:45 Simple Syrup FEEDTUBE PRN PRN Hypoglycemia Sodium Bicarbonate 650 mg 10/05/20 10:00 10/18/20 09:50 Sodium Bicarbonate PO 650 mg DAILY OSEI Administration Sodium Bicarbonate 325 mg 10/15/20 13:45 Sodium Bicarbonate FEEDTUBE PRN PRN For Clogged Feeding Tube Sodium Chloride 10 ml 10/04/20 18:06 10/11/20 21:53 Sodium Chloride Flush Syringe 10 Ml IV 10 ml PRN PRN Administration LINE FLUSH
--- NOTE | 2020-10-18 13:25 | Discharge Summary ---
Providers - Providers Date of Admission: 10/05/20 17:49 Date of discharge: 10/18/20 Attending physician: MICK RODRIGUEZ 10/04/20 18:06 Occupational Therapy Evaluate and Treat [CONS] Routine Comment: Reason For Exam: Neuro deficits Physical Therapy Evaluation and Treat [CONS] Routine Comment: Reason For Exam: Neuro deficits 10/04/20 18:07 Speech Therapy Evaluation and Treat [CONS] Routine Reason For Exam: swallow eval 10/05/20 12:16 Consult to Physician [CONS] Routine Comment: Consulting Provider: SERENA BOND Physician Instructions: Reason For Exam: AMS 10/06/20 08:48 Consult to Case Management [CONS] Routine Services Needed at Discharge: Application Manager Notified:: cm 10/06/20 14:47 Consult to Dietitian/Nutrition [CONS] Routine Physician Instructions: Reason For Exam: Reason for Consult: Write/Manage Tube Feeding 10/07/20 10:30 Speech Therapy Evaluation and Treat [CONS] Routine Reason For Exam: swallow re-eval 10/07/20 13:22 Consult to Physician [CONS] Routine Comment: Consulting Provider: AMY CHRISTINA Physician Instructions: Reason For Exam: eval for PEG Placement 10/08/20 06:30 Consult to Physician [CONS] Routine Comment: Consulting Provider: ROMY TORRE Physician Instructions: Reason For Exam: cva 10/09/20 09:52 Consult to Physician [CONS] Routine Comment: Consulting Provider: PATTI FUENTES Physician Instructions: Reason For Exam: PEG eval- coughing with food 10/12/20 11:30 Speech Therapy Evaluation and Treat [CONS] Routine Reason For Exam: expressive aphsia 10/12/20 19:33 Consult to Physician [CONS] Routine Comment: Consulting Provider: RONEL LOPEZ Physician Instructions: Reason For Exam: Acute on chronic kidney disease 10/14/20 10:53 Consult to Physician [CONS] Routine Comment: Consulting Provider: JAHAIRA ARCOS Physician Instructions: Reason For Exam: peg placement 10/17/20 15:51 Consult to Physician [CONS] Routine Comment: Consulting Provider: JAHAIRA ARCOS Physician Instructions: Reason For Exam: peg tube malfunction Primary care physician: CLAIMS ADJUSTER CROP Hospitalization Reason for admission: Acute CVA with left hemiparesis Condition: Stable Pertinent studies: CT head without contrast MRA head MRA neck MRI brain Carotid Doppler Echocardiogram Multiple chest x-rays Multiple abdominal x-rays CT abdomen and pelvis Procedures: EGD; esophagitis, duodenitis, hiatal hernia s/p laparoscopic-assisted PEG placement by surgery 10/15/2020 Hospital course: 60 YO Male with HTN, CVA LHP on DAPT, Nicotine Dependence, CKD, Seizure Disorder not currently taking AED, was admitted through emergency room with history of fall getting out of bed and could not get himself off of the floor. Patient daughter reports finding patient down on the floor, confused, and covered in urine. EMS was notified and upon arrival the patient was found to be in distress with a neurologic deficit. A code stroke was called and the patient was transported to [facility] for further care and evaluation Patient was found to have clinical symptoms consistent with CVA and was initiated on stroke protocol in the emergency department. Teleneurology was consulted and the patient was deemed not a candidate for TPA. Patient placed in observation status and ini tiated on stroke protocol. Patient was admitted and had extensive neuro work-up which was consistent with acute CVA with left-sided hemiparesis. Patient was started on appropriate therapy with aspirin, Plavix and statin patient received physical therapy occupational therapy speech therapy, throughout the hospital stay patient was followed by neurologist, patient had severe dysphagia, speech therapy evaluated, try to place Dobbhoff, unsuccessful GI was consulted, GI try to do EGD and PEG placement unsuccessful, subsequently surgery was consulted and patient underwent laparoscopic assisted PEG placement. Patient tolerated the procedure well and PEG feeds were started, patient tolerated well. PT OT recommended subacute rehab, evaluated by case management who assisted in securing a place. Today patient is comfortable, dysarthria, alert and awake, dysphagia with PEG tube in place tolerating the feeds Vital signs reviewed stable, physical examination prior to discharge show acute CVA with left hemiparesis. Patient is hemodynamically and clinically stable at discharge and transfer to subacute rehab with guarded prognosis. Discharge diagnosis; --Acute CVA; with left-sided hemiparesis Dysarthria, dysphagia Aspirin and Plavix held in preparation for PEG placement Resume aspirin Plavix tomorrow --Dysphagia; s/p laparoscopic-assisted PEG placement by surgery 10/15/2020 Tube feeding per protocol, aspiration precautions, --History of seizure disorder; Seizure precautions, continue antiepileptic medications, patient cannot drive --Chronic kidney disease/acute on chronic kidney disease; Vasomotor nephropathy, mild improvement Avoid nephrotoxins, nephrology following --Hypertension; moderate control Continue current antihypertensives and as needed medications --Dyslipidemia; statin --Ongoing tobacco use; smoking cessation counseling Nicotine patch as needed Hemodynamically and clinically stable at discharge Disposition: [id number] Time spent for discharge: 35 min Core Measure Documentation - Palliative Care Palliative Care/ Comfort Measures: Not Applicable - Core Measures Any of the following diagnoses?: stroke - Stroke Discharge Requirements Statin for LDL = or >70 mg/dl on DC: Yes Anticoag for atrial fib/atrial flutter: Not Applicable (No A. fib no flutter) Antithrombotic for ischemic stroke: Yes Exam - Constitutional Vitals: Temp Pulse Resp BP Pulse Ox 98.6 F 75 20 105/67 100 10/18/20 04:57 10/18/20 04:57 10/18/20 04:57 10/18/20 04:57 10/18/20 04:57 General appearance: Present: mild distress, well-nourished, obese - EENT Eyes: Present: PERRL, EOM intact - Neck Neck: Present: supple, normal ROM - Respiratory Respiratory effort: normal Respiratory: bilateral: diminished, negative: rales, rhonchi, wheezing - Cardiovascular Rhythm: regular Heart Sounds: Present: S1 & S2 - Extremities Extremities: no ischemia, No edema - Abdominal General gastrointestinal: Present: soft, non-tender, non-distended, normal bowel sounds, other (PEG tube in place) - Integumentary Integumentary: Present: clear, warm - Musculoskeletal Musculoskeletal: left sided weakness - Psychiatric Psychiatric: other (Dysarthria) - Neurologic Neurologic: other (Acute CVA with left-sided hemiparesis) Plan Activity: advance as tolerated, fall precautions Diet: other (Tube feeding per protocol) Special Instructions: physical therapy, occupational therapy, other (Speech therapy) Additional Instructions: Fall precautions. Aspiration precautions. Hemodialysis as needed per nephrology. Follow nephrology in 1 week. Physical therapy, Occupational Therapy, speech therapy as tolerated Follow up with: YANDEL CAMACHO MD [Primary Care Provider] - 7 Days TANISHA SOLIS MD [Staff Physician] - 7 Days JAHAIRA ARCOS DO [Staff Physician] - 14 Days SIDDHARTH WADE MD [Staff Physician] - 7 Days
[2020-10-19] MEDS ORDERED: ASPIRIN EC 81 MG TAB PO SCH (10:00)
== END 2020-10-18 17:30 | DRG 64 ==
LOC: ED 15:21 → 4A 18:06 → IMCU 10-05 00:43 → OBSVTOIN 10-05 17:49 → 4A 10-06 21:12
PROVIDERS: ADMIT Internal Medicine; ATTEND Internal Medicine
PROC: 0DJ08ZZ Inspection of Upper Intestinal Tract, Via Natural or Artificial Opening Endoscopic (ICD-10-PCS; principal; 2020-10-14)
PROC: 0DH63UZ Insertion of Feeding Device into Stomach, Percutaneous Approach (ICD-10-PCS; 2020-10-15)
DX: I63.9 Cerebral infarction, unspecified (principal); N17.0 Acute kidney failure with tubular necrosis; N18.4 Chronic kidney disease, stage 4 (severe); G81.94 Hemiplegia, unspecified affecting left nondominant side; N39.0 Urinary tract infection, site not specified; E87.0 Hyperosmolality and hypernatremia; F17.213 Nicotine dependence, cigarettes, with withdrawal; G40.909 Epilepsy, unspecified, not intractable, without status epilepticus; K44.9 Diaphragmatic hernia without obstruction or gangrene; R13.10 Dysphagia, unspecified; K20.90 Esophagitis, unspecified without bleeding; K29.80 Duodenitis without bleeding; Z20.828 Contact with and (suspected) exposure to other viral communicable diseases; I12.9 Hypertensive chronic kidney disease with stage 1 through stage 4 chronic kidney disease, or unspecified chronic kidney disease; R29.703 NIHSS score 3; R47.1 Dysarthria and anarthria; E78.5 Hyperlipidemia, unspecified; Z82.49 Family history of ischemic heart disease and other diseases of the circulatory system; Z79.899 Other long term (current) drug therapy; Z71.6 Tobacco abuse counseling; Z79.82 Long term (current) use of aspirin
CPT/HCPCS: 36415; 70450; 70544; 70547; 70551; 74018; 74176; 74230; 80048; 80053; 80061; 81001; 82962; 84484; 85025; 85027; 85610; 85670; 85730; 87086; 89050; 93005; 93880; 99406; G0378; A9270-GY; C9113; J0696; J1953; J2370; J2405; J2704; J2710; J3010; J7030; J7070; J9999; Q9967; U0003